=== PATIENT | female | born 1950 | race Two or more races ===

== ENCOUNTER 2018-10-03 12:58 | Inpatient (IN) | payer MEDICARE ==
[~2018-10-03] VITALS: Ht 160 cm; Wt 83.9 kg
[2018-10-03 13:00] VITALS: BP 155/61
--- NOTE | 2018-10-03 13:20 | NUR ---
ED Nurse Note: pt arrives from home via [facility] with c/o weakness and not feeling well with mild nausea. pt relates 3 weeks ago had a hernia repair done. healing open area noted to pt rt side of abd. daughter providing translation. pt states she has started feeling cp and nausea over past few days pt desires to amb with family assistance to brp before ecg and lab draw done. lungs cta dim bases, pt denies diziiness at this time. pt aware to obtain urine sample
[2018-10-03 13:56] LABS: APPEARANCE,URINE CLEAR; BILIRUBIN, URINE NEGATIVE (NEGATIVE); COLOR,URINE PALE YELLOW; GLUCOSE, URINE (UA) 2+ (NEGATIVE); KETONES,URINE NEGATIVE (NEGATIVE); LEUKOCYTE ESTERASE ,URINE 2+ (NEGATIVE); NITRITE,URINE NEGATIVE (NEGATIVE); PH,URINE 7 (4.5-8.0); PROTEIN,URINE NEGATIVE (NEGATIVE); UROBILINOGEN,URINE NORMAL MG/DL (0.0-1.0)
[2018-10-03 13:58] LABS: BASOPHILS % (AUTO) 0.8 % (0.0-2.0); EOSINOPHILS % (AUTO) 0.6 % (0.0-3.0); HEMATOCRIT 34.5 % (37.0-47.0); HEMOGLOBIN 11.4 G/DL (12.0-16.0); LYMPHOCYTES % (AUTO) 12.6 % (20.0-45.0); MEAN CORPUSCULAR VOLUME 85 FL (80-99); MONOCYTES % (AUTO) 3.8 % (1.0-10.0); NEUTROPHILS % (AUTO) 82.2 % (45.0-75.0); PLATELET COUNT 103 K/UL (150-450); RED BLOOD COUNT 4.05 M/UL (4.20-5.40); RED CELL DISTRIBUTION WIDTH 14.6 % (11.6-14.8); WHITE BLOOD COUNT 5.1 K/UL (4.8-10.8)
[2018-10-03 14:08] LABS: ANION GAP 8 mmol/L (5-15); BLOOD UREA NITROGEN 11 mg/dL (7-18); CALCIUM 9.9 MG/DL (8.5-10.1); CARBON DIOXIDE 31 MMOL/L (21-32); CHLORIDE 103 MMOL/L (98-107); CREATININE 0.6 MG/DL (0.55-1.30); POTASSIUM 3.7 MMOL/L (3.5-5.1); SODIUM 141 MMOL/L (136-145)
--- NOTE | 2018-10-03 14:11 | Diagnostic Imaging Report ---
Indication: Shortness of breath Technique: One view of the chest Comparison: none Findings: The heart is mildly enlarged. There is equivocal mild blunting of the left costophrenic sulcus, could indicate a small effusion. The lungs and right pleural space are clear.. Impression: Mild cardiomegaly Possible small left pleural effusion
[2018-10-03 14:30] VITALS: BP 116/59
[2018-10-03 14:33] LABS: ALANINE AMINOTRANSFERASE 41 U/L (12-78); ALBUMIN 3.5 G/DL (3.4-5.0); ALKALINE PHOSPHATASE 80 U/L (46-116); ASPARTATE AMINO TRANSFERASE 34 U/L (15-37); BILIRUBIN,TOTAL 0.7 MG/DL (0.2-1.0); CKMB 0.9 NG/ML (0.0-3.6); CREATINE KINASE 64 U/L (26-308); PHOSPHORUS 3.9 MG/DL (2.5-4.9)
--- NOTE | 2018-10-03 14:46 | Emergency Room Report ---
History of Present Illness General Chief Complaint: Generalized Weakness Source: Patient, Family Member, EMS Present Illness HPI This patient is accompanied by her granddaughter. The patient was drinking coffee and suddenly felt lightheaded and weak. She continued to feel very shaky , lightheaded and fatigued. She also complains of pain in her left arm. She denies chest pain or shortness of breath. She denies headache or neck pain. She denies abdominal pain. She denies nausea or vomiting. She denies fever chills. She has no other complaints. Allergies: Coded Allergies: PENICILLINS (Verified Allergy, Severe, anaphalaxtic, 10/03/18) Patient History Past Medical History: see triage record, DM, HTN, other - HLP, cirrhosis Social History: Denies: smoking, alcohol use, drug use Reviewed Nursing Documentation: PMH: Agreed; PSxH: Agreed Nursing Documentation-PMH Hx Hypertension: Yes Hx Diabetes: Yes Review of Systems All Other Systems: negative except mentioned in HPI Physical Exam Vital Signs Date Time Temp Pulse Resp B/P (MAP) Pulse Ox O2 Delivery O2 Flow Rate FiO2 10/03/18 12:51 99.0 78 16 192/90 (124) 99 Sp02 EP Interpretation: reviewed, normal General Appearance: no apparent distress, alert, GCS 15, non-toxic Head: normocephalic, atraumatic Eyes: bilateral eye normal inspection, bilateral eye PERRL ENT: hearing grossly normal, normal pharynx, no angioedema, normal voice Neck: full range of motion, supple/symm/no masses Respiratory: chest non-tender, lungs clear, normal breath sounds, no respiratory distress, no retraction, no accessory muscle use, speaking full sentences Cardiovascular #1: regular rate, rhythm, no edema Gastrointestinal: normal bowel sounds, non tender, soft, non-distended, no guarding, no rebound Rectal: deferred Musculoskeletal: back normal, gait/station normal, normal range of motion, non- tender, swelling - +Swelling of L. hand through upper arm. Neurologic: alert, oriented x3, responsive, motor strength/tone normal, sensory intact, speech normal Psychiatric: judgement/insight normal, memory normal, mood/affect normal, no suicidal/homicidal ideation Skin: normal color, no rash, warm/dry, well hydrated Medical Decision Making Diagnostic Impression: Primary Impression: CHF (congestive heart failure) Additional Impressions: Advanced cirrhosis of liver UTI (urinary tract infection) Diabetes mellitus HTN (hypertension) Generalized weakness Pancytopenia ER Course This patient is found to have CHF, urinary tract infection and given her history of cirrhosis, she is admitted for further evaluation and treatment by cardiology, gastroenterology and internal medicine. The patient did have left upper extremity swelling, venous ultrasound shows no evidence of DVT. This is likely related to the cirrhosis and CHF possibly versus lymphedema. The patient remained stable in the emergency department and was admitted for further evaluation and treatment. Laboratory Tests Test 10/03/18 13:30 White Blood Count 5.1 K/UL (4.8-10.8) Red Blood Count 4.05 M/UL (4.20-5.40) L Hemoglobin 11.4 G/DL (12.0-16.0) L Hematocrit 34.5 % (37.0-47.0) L Mean Corpuscular Volume 85 FL (80-99) Mean Corpuscular Hemoglobin 28.2 PG (27.0-31.0) Mean Corpuscular Hemoglobin Concent 33.0 G/DL (32.0-36.0) Red Cell Distribution Width 14.6 % (11.6-14.8) Platelet Count 103 K/UL (150-450) L Mean Platelet Volume 5.8 FL (6.5-10.1) L Neutrophils (%) (Auto) 82.2 % (45.0-75.0) H Lymphocytes (%) (Auto) 12.6 % (20.0-45.0) L Monocytes (%) (Auto) 3.8 % (1.0-10.0) Eosinophils (%) (Auto) 0.6 % (0.0-3.0) Basophils (%) (Auto) 0.8 % (0.0-2.0) Urine Color Pale yellow Urine Appearance Clear Urine pH 7 (4.5-8.0) Urine Specific [place] 1.010 (1.005-1.035) Urine Protein Negative (NEGATIVE) Urine Glucose (UA) 2+ (NEGATIVE) H Urine Ketones Negative (NEGATIVE) Urine Blood 3+ (NEGATIVE) H Urine Nitrite Negative (NEGATIVE) Urine Bilirubin Negative (NEGATIVE) Urine Urobilinogen Normal MG/DL (0.0-1.0) Urine Leukocyte Esterase 2+ (NEGATIVE) H Urine RBC 5-10 /HPF (0 - 2) H Urine WBC 2-4 /HPF (0 - 2) Urine Squamous Epithelial Cells Few /LPF (NONE/OCC) Urine Bacteria Occasional /HPF (NONE) Sodium Level 141 MMOL/L (136-145) Potassium Level 3.7 MMOL/L (3.5-5.1) Chloride Level 103 MMOL/L (98-107) Carbon Dioxide Level 31 MMOL/L (21-32) Anion Gap 8 mmol/L (5-15) Blood Urea Nitrogen 11 mg/dL (7-18) Creatinine 0.6 MG/DL (0.55-1.30) Estimate Glomerular Filtration Rate > 60 mL/min (>60) Glucose Level 221 MG/DL (74-106) H Lactic Acid Level 1.50 mmol/L (0.4-2.0) Calcium Level 9.9 MG/DL (8.5-10.1) Phosphorus Level 3.9 MG/DL (2.5-4.9) Magnesium Level 1.9 MG/DL (1.8-2.4) Total Bilirubin 0.7 MG/DL (0.2-1.0) Aspartate Amino Transferase (AST) 34 U/L (15-37) Alanine Aminotransferase (ALT) 41 U/L (12-78) Alkaline Phosphatase 80 U/L (46-116) Total Creatine Kinase 64 U/L (26-308) Creatine Kinase MB 0.9 NG/ML (0.0-3.6) Creatine Kinase MB Relative Index 1.4 Troponin I 0.000 ng/mL (0.000-0.056) Total Protein 7.1 G/DL (6.4-8.2) Albumin 3.5 G/DL (3.4-5.0) Globulin 3.6 g/dL Albumin/Globulin Ratio 1.0 (1.0-2.7) EKG Diagnostic Results Rate: normal Rhythm: NSR ST Segments: no acute changes Rhythm Strip Diag. Results EP Interpretation: yes Rate: 90 Rhythm: NSR, no PVC's, no ectopy Chest X-Ray Diagnostic Results Chest X-Ray Diagnostic Results : Chest X-Ray Ordered: Yes # of Views/Limited/Complete: 1 View Indication: Other EP Interpretation: Yes Interpretation: other - Cardiomegaly Impression: Other - See above Electronically Signed by: Michellethor Goldstein DO CT/MRI/US Diagnostic Results CT/MRI/US Diagnostic Results : Imaging Test Ordered: Venous US: LUE Impression No DVT. See official report in the EMR Last Vital Signs Date Time Temp Pulse Resp B/P (MAP) Pulse Ox O2 Delivery O2 Flow Rate FiO2 10/03/18 12:51 99.0 78 16 192/90 (124) 99 Disposition: ADMITTED INPATIENT Condition: Serious Michelle Goldstein DO Oct 03, 2018 14:46
--- NOTE | 2018-10-03 15:20 | NUR ---
ED Nurse Note: pt to be admission for new onset chf. ivf bolus stopped pt received 1100ml of ns prior to dx. dr herrera aware. pt remains without dyspnea or changes in vs/mentation
[2018-10-03 16:08] VITALS: BP 132/51
--- NOTE | 2018-10-03 16:19 | NUR ---
ED Nurse Note: pt relates not having chest pressure or nausea now but when she moves her left arm she still has pain there, granddaughter and pt aware of plan for admit. med recon done. pt doesnt meet criteria for swabs obtainment as she has not had inpt stay <30 days.
[2018-10-03] MEDS ORDERED: GABAPENTIN600 MG ORAL (16:26)
[2018-10-03] MEDS ORDERED: NOVOLOG100 UNITS1 (16:26)
[2018-10-03] MEDS ORDERED: LANTUS SOL100 UNIT/1 SUBQ (16:26)
[2018-10-03] MEDS ORDERED: [UNRECOGNIZED DRUG - OTHER] (16:26)
[2018-10-03] MEDS ORDERED: ATORVASTATIN CA40 MG ORAL (16:26)
[2018-10-03] MEDS ORDERED: LISINOPRIL-HCT1 EAC2 ORAL (16:26)
--- NOTE | 2018-10-03 16:27 | Diagnostic Imaging Report ---
Indication: Left arm pain Technique: Grayscale and duplex images of the left upper extremity veins Comparison: none Findings: Grayscale and images demonstrate no evidence of intraluminal thrombus. Normal phasic Doppler waveforms, normal compressibility Impression: Negative for left upper extremity venous thrombosis
--- NOTE | 2018-10-03 16:34 | NUR ---
ED Nurse Note: attempted report krystal rn to call back from tele unit
--- NOTE | 2018-10-03 16:45 | NUR ---
NURSE NOTES: Received report from FUNMILAYO Kumar in Ed. 165: Notified Dr. Mayer of new admission and of open hernia site from recent repair. Asked for admission orders.
--- NOTE | 2018-10-03 16:51 | NUR ---
ED Nurse Note: report to krystal christopher, awaits pt on tele unit. pt prepared for transfer acls protocol
--- NOTE | 2018-10-03 17:10 | NUR ---
NURSE NOTES: Pt transferred to [facility]. Pt ambulatory, A/Ox4, Khmer speaking only, Granddaughter, Tanja at bedside and translating. Vitals obtained and assessment done, see flowsheet, attached tele monitor to pt. Bed in lowest position, call light within reach, oriented pt and family to room, hourly rounding, bed controls, call light and plan of care.
--- NOTE | 2018-10-03 17:15 | NUR ---
NURSE NOTES: Notified Dr. Mayer regarding pt's open surgical site, midline abdomen from hernia repair 3 weeks ago, prior to admission. No new orders given
[2018-10-03 17:20] VITALS: BP 130/51
[2018-10-03] MEDS ORDERED: Miralax 17gm pkt ORAL PRN (17:30)
[2018-10-03] MEDS ORDERED: Morphine Sulfate 2mg/ml Inj(IV/IM USE ONLY) IVP PRN (17:30)
[2018-10-03] MEDS ORDERED: Albuterol/Ipratropium 3ml neb HHN PRN (17:30)
[2018-10-03] MEDS ORDERED: Nitroglycerin Subl 0.4mg tab SL PRN (17:30)
--- NOTE | 2018-10-03 18:40 | NUR ---
NURSE NOTES: Clarified NS order with DR. Mayer. Pt has CHF and received 1100ml NS in ED prior to CHF Dx. Left arm, IV site, swollen. Dr. Maeyr ordered DC IV fluid. New IV started right AC 22g SL
--- NOTE | 2018-10-03 19:28 | NUR ---
HAND-OFF: Report given to FUNMILAYO Dumas. Family at bedside. Pt stable.
--- NOTE | 2018-10-03 19:30 | NUR ---
NURSE NOTES: received pt from day shift nurse, pt AAOX4, family at bedside. no acute distress noted. no c/o pain. bed locked and lowest position, bedside rail up x2. call light within reach, will continue to monitor for any change in condition.
[2018-10-03] MEDS: Heparin 5000 units/ml inj SUBQ SCH (21:00)
[2018-10-03] MEDS: NovoLOG Insulin Flexpen SUBQ SCH (21:20)
--- NOTE | 2018-10-04 | NUR ---
NURSE NOTES: pt in bed, daughter at bedside. no acute distress noted. no change in condition. will continue to monitor for change in condition.
--- NOTE | 2018-10-04 04:00 | NUR ---
NURSE NOTES: pt sleeping, no change in condition. will continue to monitor for change in condition.
[2018-10-04] MEDS: NovoLOG Insulin Flexpen SUBQ SCH ×4 (06:17→21:17)
--- NOTE | 2018-10-04 06:39 | NUR ---
NURSE NOTES: pt remains stable, no acute distress, no change in condition. IV patent. all needs met during my shift. bed locked and lowest position, bedside rail up x2, call light within reach, will endorse plan of care to incoming nurse.
[2018-10-04 07:11] LABS: HEMATOCRIT 30.2 % (37.0-47.0); HEMOGLOBIN 10.1 G/DL (12.0-16.0); MEAN CORPUSCULAR VOLUME 85 FL (80-99); PLATELET COUNT 97 K/UL (150-450); RED BLOOD COUNT 3.57 M/UL (4.20-5.40); WHITE BLOOD COUNT 4.3 K/UL (4.8-10.8)
--- NOTE | 2018-10-04 07:34 | NUR ---
NURSE NOTES: Received report from Alesia MELLO. A0X4 and Pt in bed awake. No c/o pain and Denied SOB. No signs of distress noted. On 2LPM O2 via N/C. Pt refused SCDs. Bed in lowest position and locked. Noted an open surgical wound on abdomen with some slough and yellow colored small amount of drainage on gauze. Will ask the doctor for surgical consult. IV site L wrist 22G SL intact and patent. 2 X side rails up. Will continue to plan of care.
--- NOTE | 2018-10-04 07:34 | NUR ---
HAND-OFF: Report given to FUNMILAYO Foley.
[2018-10-04 07:46] LABS: ALANINE AMINOTRANSFERASE 31 U/L (12-78); ALBUMIN 3.2 G/DL (3.4-5.0); ALBUMIN/GLOBULIN RATIO 1.2 (1.0-2.7); ALKALINE PHOSPHATASE 65 U/L (46-116); ANION GAP 6 mmol/L (5-15); ASPARTATE AMINO TRANSFERASE 29 U/L (15-37); BILIRUBIN,TOTAL 0.6 MG/DL (0.2-1.0); BLOOD UREA NITROGEN 8 mg/dL (7-18); CALCIUM 9.2 MG/DL (8.5-10.1); CARBON DIOXIDE 30 MMOL/L (21-32); CHLORIDE 106 MMOL/L (98-107); CHOLESTEROL 140 MG/DL (< 200); CREATININE 0.5 MG/DL (0.55-1.30); HDL CHOLESTEROL 43 MG/DL (40-60); POTASSIUM 3.6 MMOL/L (3.5-5.1); SODIUM 142 MMOL/L (136-145); TRIGLYCERIDES 78 MG/DL (30-150)
[2018-10-04 08:43] VITALS: BP 110/56
--- NOTE | 2018-10-04 08:57 | Consultation ---
History of Present Illness General Date patient seen: Oct 04, 2018 Time patient seen: 08:30 Chief Complaint: chest pain, SOB Referring physician: Dr Francois Present Illness HPI t1 years old female with past medical history of hypertension and diabetes, came to emergency room accompanied by her granddaughter. Patient apparently was drinking coffee and suddenly felt lightheaded and weak , she was she complained of pain in the left arm . she denied chest pain or shortness of breath she denied headache or neck pain . she denied abdominal pain, nausea ,vomiting . she denied fever or chills . patient had few weeks ago hernia repair in [facility] . upon evaluation blood pressure was significantly elevated 192/90 . laboratory work-up revealed no leukocytosis ,hemoglobin 11.4 ,hematocrit 24.5. Urinalysis revealed +2 leukocyte esterase ,borderline pyuria ,and occasional bacteria. Electrolytes and renal parameters were stable. Glucose 221. Lactic acid 1.5. Stable LFT. Troponin was negative. EKG revealed normal sinus rhythm, no acute ischemic changes . CXR demonstrated mild cardiomegaly ,possible small left pleural effusion ,no other abnormalities . venous duplex left upper extremity revealed no evidence of acute DVT. Patient admitted to telemetry floor to for further evaluation and management Allergies: Coded Allergies: PENICILLINS (Verified Allergy, Severe, anaphalaxtic, 10/03/18) Medication History Scheduled Aspirin (Aspirin EC), 81 MG ORAL DAILY, (Reported) Atorvastatin Calcium* (Atorvastatin Calcium*), 40 MG ORAL BEDTIME, (Reported) Gabapentin* (Gabapentin*), 600 MG ORAL THREE TIMES A DAY, (Reported) Insulin Aspart (Novolog Flexpen), SUBQ BEFORE MEALS AND HS, (Reported) Lisinopril (Lisinopril*), 20 MG ORAL DAILY, (Reported) Metformin Hcl* (Metformin Hcl*), 1,000 MG ORAL BID, (Reported) Sitagliptin (Januvia), 100 MG ORAL ACBREAKFAST, (Reported) Scheduled PRN Clonidine Hcl (Clonidine Hcl), 0.1 MG PO Q4HR PRN for Per rx protocol, (Reported ) Temazepam (Temazepam*), 15 MG ORAL BEDTIME PRN for Per rx protocol, (Reported) Miscellaneous Medications [lamblit], (Reported) Discontinued Medications Insulin Aspart (Novolog Flexpen), (Reported) Discontinued Reason: Medication dose changed Insulin Aspart (Novolog), 100 UNIT SQ AC+HS, (Reported) Discontinued Reason: Medication dose changed Insulin Glargine (Lantus), 0 SUBQ BEDTIME, (Reported) Discontinued Reason: MD discontinued med Lisinopril/Hydrochlorothiazide 20-25 Mg Tab (Lisinopril-Hctz 20-25 Mg Tab), 1 TAB ORAL DAILY, (Reported) Discontinued Reason: MD discontinued med Temazepam (Temazepam*), 15 MG ORAL BEDTIME, (Reported) Discontinued Reason: Medication dose changed Patient History Healthcare decision maker Karen Casey Resuscitation status Full Code Advanced Directive on File No Review of Systems Eye: Reports: no symptoms ENT: Reports: no symptoms Respiratory: Reports: other - SOB Cardiovascular: Reports: chest pain Gastrointestinal: Reports: no symptoms Genitourinary: Reports: no symptoms Musculoskeletal: Reports: no symptoms, other - s/p recent hernia repair Skin: Reports: other - open area at umbilicus Psychiatric: Reports: no symptoms Neurological: Reports: no symptoms Endocrine: Reports: other - DM ROS Narrative now c/o chest pain granddaughter at the bedside pulse ox stable on RA chest pain midsternal, radiates to left shoulder, some SOB Physical Exam General Appearance: alert - Stateless speaking female in NAD Lines, tubes and drains: peripheral HEENT: normocephalic, atraumatic, anicteric, mucous membranes moist Neck: non-tender, normal alignment, supple Respiratory/Chest: lungs clear, no respiratory distress, no accessory muscle use Cardiovascular/Chest: normal rate, no JVD Abdomen: normal bowel sounds, non tender, soft - obese Extremities: normal range of motion, non-tender, no calf tenderness, normal capillary refill Skin Exam: warm/dry Neurologic: no motor/sensory deficits, alert, responsive Musculoskeletal: normal muscle bulk Last 24 Hour Vital Signs Date Time Temp Pulse Resp B/P (MAP) Pulse Ox O2 Delivery O2 Flow Rate FiO2 10/04/18 08:43 97.3 85 18 110/56 (74) 98 10/04/18 04:00 81 10/04/18 00:00 82 10/03/18 21:00 Room Air 10/03/18 20:00 91 10/03/18 17:20 98.6 88 16 130/51 (77) 98 10/03/18 16:53 86 20 132/51 100 Room Air 10/03/18 16:38 Room Air 10/03/18 16:08 86 20 132/51 100 Room Air 10/03/18 14:30 92 20 116/59 100 Room Air 10/03/18 13:00 86 20 155/61 100 Room Air 10/03/18 13:00 78 16 Room Air 10/03/18 12:51 99.0 78 16 192/90 (124) 99 Intake and Output 10/03/18 10/04/18 19:00 07:00 Intake Total 1100 ml Balance 1100 ml Intake Oral 0 ml IV Total 1100 ml # Voids 1 Laboratory Tests Test 10/03/18 13:30 10/04/18 06:15 White Blood Count 5.1 K/UL (4.8-10.8) 4.3 K/UL (4.8-10.8) L Red Blood Count 4.05 M/UL (4.20-5.40) L 3.57 M/UL (4.20-5.40) L Hemoglobin 11.4 G/DL (12.0-16.0) L 10.1 G/DL (12.0-16.0) L Hematocrit 34.5 % (37.0-47.0) L 30.2 % (37.0-47.0) L Mean Corpuscular Volume 85 FL (80-99) 85 FL (80-99) Mean Corpuscular Hemoglobin 28.2 PG (27.0-31.0) 28.4 PG (27.0-31.0) Mean Corpuscular Hemoglobin Concent 33.0 G/DL (32.0-36.0) 33.6 G/DL (32.0-36.0) Red Cell Distribution Width 14.6 % (11.6-14.8) 15.0 % (11.6-14.8) H Platelet Count 103 K/UL (150-450) L 97 K/UL (150-450) L Mean Platelet Volume 5.8 FL (6.5-10.1) L 5.8 FL (6.5-10.1) L Neutrophils (%) (Auto) 82.2 % (45.0-75.0) H % (45.0-75.0) Lymphocytes (%) (Auto) 12.6 % (20.0-45.0) L % (20.0-45.0) Monocytes (%) (Auto) 3.8 % (1.0-10.0) % (1.0-10.0) Eosinophils (%) (Auto) 0.6 % (0.0-3.0) % (0.0-3.0) Basophils (%) (Auto) 0.8 % (0.0-2.0) % (0.0-2.0) Urine Color Pale yellow Urine Appearance Clear Urine pH 7 (4.5-8.0) Urine Specific [place] 1.010 (1.005-1.035) Urine Protein Negative (NEGATIVE) Urine Glucose (UA) 2+ (NEGATIVE) H Urine Ketones Negative (NEGATIVE) Urine Blood 3+ (NEGATIVE) H Urine Nitrite Negative (NEGATIVE) Urine Bilirubin Negative (NEGATIVE) Urine Urobilinogen Normal MG/DL (0.0-1.0) Urine Leukocyte Esterase 2+ (NEGATIVE) H Urine RBC 5-10 /HPF (0 - 2) H Urine WBC 2-4 /HPF (0 - 2) Urine Squamous Epithelial Cells Few /LPF (NONE/OCC) Urine Bacteria Occasional /HPF (NONE) Sodium Level 141 MMOL/L (136-145) 142 MMOL/L (136-145) Potassium Level 3.7 MMOL/L (3.5-5.1) 3.6 MMOL/L (3.5-5.1) Chloride Level 103 MMOL/L (98-107) 106 MMOL/L (98-107) Carbon Dioxide Level 31 MMOL/L (21-32) 30 MMOL/L (21-32) Anion Gap 8 mmol/L (5-15) 6 mmol/L (5-15) Blood Urea Nitrogen 11 mg/dL (7-18) 8 mg/dL (7-18) Creatinine 0.6 MG/DL (0.55-1.30) 0.5 MG/DL (0.55-1.30) L Estimat Glomerular Filtration Rate > 60 mL/min (>60) > 60 mL/min (>60) Glucose Level 221 MG/DL (74-106) H 116 MG/DL (74-106) #H Lactic Acid Level 1.50 mmol/L (0.4-2.0) Calcium Level 9.9 MG/DL (8.5-10.1) 9.2 MG/DL (8.5-10.1) Phosphorus Level 3.9 MG/DL (2.5-4.9) Magnesium Level 1.9 MG/DL (1.8-2.4) Total Bilirubin 0.7 MG/DL (0.2-1.0) 0.6 MG/DL (0.2-1.0) Aspartate Amino Transf (AST/SGOT) 34 U/L (15-37) 29 U/L (15-37) Alanine Aminotransferase (ALT/SGPT) 41 U/L (12-78) 31 U/L (12-78) Alkaline Phosphatase 80 U/L (46-116) 65 U/L (46-116) Total Creatine Kinase 64 U/L (26-308) Creatine Kinase MB 0.9 NG/ML (0.0-3.6) Creatine Kinase MB Relative Index 1.4 Troponin I 0.000 ng/mL (0.000-0.056) Total Protein 7.1 G/DL (6.4-8.2) 5.9 G/DL (6.4-8.2) L Albumin 3.5 G/DL (3.4-5.0) 3.2 G/DL (3.4-5.0) L Globulin 3.6 g/dL 2.7 g/dL Albumin/Globulin Ratio 1.0 (1.0-2.7) 1.2 (1.0-2.7) Neutrophils % (Manual) Pending Lymphocytes % (Manual) Pending Platelet Estimate Pending Platelet Morphology Pending Hemoglobin A1c 7.2 % (4.3-6.0) H Triglycerides Level 78 MG/DL (30-150) Cholesterol Level 140 MG/DL (< 200) LDL Cholesterol 88 mg/dL (<100) HDL Cholesterol 43 MG/DL (40-60) Cholesterol/HDL Ratio 3.3 (3.3-4.4) Thyroid Stimulating Hormone (TSH) 0.382 uiU/mL (0.358-3.740) Height (Feet): 5 Height (Inches): 3.00 Weight (Pounds): 185 Medications Current Medications Medications (Trade) Dose Ordered Sig/Shila Route PRN Reason Start Time Stop Time Status Last Admin Dose Admin Acetaminophen (Tylenol) 650 mg Q4H PRN ORAL fever 10/03/18 17:30 11/02/18 17:29 Albuterol/ Ipratropium (Albuterol/ Ipratropium) 3 ml Q4H PRN HHN Shortness of Breath 10/03/18 17:30 10/08/18 17:29 Clonidine HCl (Catapres Tab) 0.1 mg Q4H PRN ORAL sbp more than 160 10/03/18 17:30 11/02/18 17:29 Dextrose (Dextrose 50%) 25 ml Q30M PRN IV Hypoglycemia 10/03/18 17:30 11/02/18 17:29 Dextrose (Dextrose 50%) 50 ml Q30M PRN IV Hypoglycemia 10/03/18 17:30 11/02/18 17:29 Gabapentin (Neurontin) 600 mg THREE TIMES A DAY ORAL 10/03/18 18:00 11/02/18 17:59 10/03/18 18:30 Heparin Sodium (Porcine) (Heparin 5000 units/ml) 5,000 units EVERY 12 HOURS SUBQ 10/03/18 21:00 11/02/18 20:59 Insulin Aspart (NovoLOG) BEFORE MEALS AND HS SUBQ 10/03/18 21:00 11/02/18 20:59 10/04/18 06:17 Morphine Sulfate (Morphine Sulfate) 2 mg Q4H PRN IVP severe pain 7-10 10/03/18 17:30 10/10/18 17:29 Nitroglycerin (Ntg) 0.4 mg Q5M X 3 DOSES PRN SL Prn Chest Pain 10/03/18 17:30 11/02/18 17:29 Ondansetron HCl (Zofran) 4 mg Q6H PRN IVP Nausea & Vomiting 10/03/18 17:30 11/02/18 17:29 Polyethylene Glycol (Miralax) 17 gm HSPRN PRN ORAL Constipation 10/03/18 17:30 11/02/18 17:29 Sodium Chloride 1,000 ml @ 100 mls/hr Q10H IVLG 10/03/18 17:26 11/02/18 17:25 10/04/18 04:37 Temazepam (Restoril) 15 mg HSPRN PRN ORAL Insomnia 10/03/18 17:30 10/10/18 17:29 10/04/18 04:39 Assessment/Plan Assessment/Plan: ASSESSMENT Hypertensive urgency POA -resolved Lightheadedness and weakness , possibly due to hypertensive urgency Chest pain with SOB Thrombocytopenia Diabetes mellitus PLAN OF CARE tele serial troponin check Venous Duplex BLE and D dimer , given c/o SOB, chest pain and recent surgery repeat troponin this am, get ECHO cardio eval BP stabilized, restart Lisinopril with holding parameters lipid panel stable , restart statin cardio eval pending TSH WNL BS close monitoring endo eval pending HgA1c -7.2 nearly at goal DVT prophylaxis with heparin, but closely monitor PLT count, if further decline below 90, will stop heparin surgery eval re umbilical wound supportive care PT eval and Rx case discussed and evaluated by supervising physician Diagnosis [place] I: Sangeetha Lake NP Oct 04, 2018 08:57
[2018-10-04] MEDS: Heparin 5000 units/ml inj SUBQ SCH ×2 (09:00→21:13)
[2018-10-04] MEDS ORDERED: Heparin 5000 units/ml inj SUBQ ONE (11:30)
[2018-10-04 12:00] VITALS: BP 122/66
--- NOTE | 2018-10-04 13:11 | Consultation ---
History of Present Illness General Date patient seen: Oct 04, 2018 Reason for Hospitalization: Generalized Weakness Present Illness HPI This is a very pleasant 68-year-old female who presented to [facility] complaining of worsening shortness of breath and discomfort. Patient is accompanied by her granddaughter who helps with history. States that patient had a ventral hernia and wanted it repaired but was told by her physicians [facility] and [place] that given her medical comorbidities repair should be delayed until she is improved. Patient decided instead that she wanted to go to [place] and have surgery and approximately 20 days ago had a ventral hernia repair in [place]. Patient is unaware of surgical procedure that was done and if mesh was or was not used. On admission patient was identified to have a dehiscence of the midline wound with sutures present. Surgery called to evaluate. Patient seen, patient evaluated, chart reviewed. Allergies: Coded Allergies: PENICILLINS (Verified Allergy, Severe, anaphalaxtic, 10/03/18) Medication History Scheduled Atorvastatin Calcium* (Atorvastatin Calcium*), 40 MG ORAL BEDTIME, (Reported) Gabapentin* (Gabapentin*), 600 MG ORAL THREE TIMES A DAY, (Reported) Insulin Glargine (Lantus), 0 SUBQ BEDTIME, (Reported) Lisinopril/Hydrochlorothiazide 20-25 Mg Tab (Lisinopril-Hctz 20-25 Mg Tab), 1 TAB ORAL DAILY, (Reported) Miscellaneous Medications Insulin Aspart (Novolog Flexpen), (Reported) [lamblit], (Reported) Patient History History Provided By: Patient, Family Member, Medical Record, PMD Healthcare decision maker Karen Peña Resuscitation status Full Code Advanced Directive on File No Past Medical/Surgical History Past Medical/Surgical History: (1) Episode of generalized weakness (2) CHF (congestive heart failure) (3) Chest tightness Review of Systems Review of Symptoms General ROS: no weight loss or fever Psychological ROS: no depression or mood changes, no memory loss Ophthalmic ROS: no visual changes or eye irritation ENT ROS: no nasal congestion, hearing loss, dizziness Allergy and Immunology ROS: no allergic symptoms or urticaria Hematological and Lymphatic ROS: no swollen glands, unusual bleeding or bruising Endocrine ROS: no polyuria, polydipsia, weight changes, temperature intolerance Respiratory ROS: cough, shortness of breath, no wheezing Cardiovascular ROS: no chest pain or dyspnea on exertion Gastrointestinal ROS: denies abdominal pain, no bright red blood in stool. Musculoskeletal ROS: no myalgias or arthralgias Neurological ROS: no TIA or stroke symptoms Dermatological ROS: no new or changing skin lesions, rashes or pruritis Physical Exam Physical Exam General appearance: alert, cooperative, no distress, appears stated age Head: Normocephalic, without obvious abnormality, atraumatic Eyes: conjunctivae/corneas clear. PERRL, EOM's intact. Fundi benign Throat: Lips, mucosa, and tongue normal. Teeth and gums normal Neck: supple, symmetrical, trachea midline, no adenopathy, thyroid: not enlarged, symmetric, no tenderness/mass/nodules, no carotid bruit and no JVD Lungs: clear to auscultation bilaterally Heart: regular rate and rhythm, S1, S2 normal, no murmur, click, rub or gallop Abdomen: soft, non-tender. Bowel sounds normal. No masses, no organomegaly. midline wound dehiscence Extremities: extremities normal, atraumatic, no cyanosis or edema Pulses: 2+ and symmetric Skin: Skin color, texture, turgor normal. No rashes or lesions Neurologic: Grossly normal Last 24 Hour Vital Signs Date Time Temp Pulse Resp B/P (MAP) Pulse Ox O2 Delivery O2 Flow Rate FiO2 10/04/18 12:00 97.5 87 20 122/66 (84) 97 10/04/18 09:00 Room Air 10/04/18 08:43 97.3 85 18 110/56 (74) 98 10/04/18 08:00 87 10/04/18 04:00 81 10/04/18 00:00 82 10/03/18 21:00 Room Air 10/03/18 20:00 91 10/03/18 17:20 98.6 88 16 130/51 (77) 98 10/03/18 16:53 86 20 132/51 100 Room Air 10/03/18 16:38 Room Air 10/03/18 16:08 86 20 132/51 100 Room Air 10/03/18 14:30 92 20 116/59 100 Room Air Intake and Output 10/03/18 10/04/18 19:00 07:00 Intake Total 1100 ml 0 ml Balance 1100 ml 0 ml Intake Oral 0 ml IV Total 1100 ml 0 ml # Voids 1 Laboratory Tests Test 10/03/18 13:30 10/04/18 06:15 10/04/18 10:45 White Blood Count 5.1 K/UL (4.8-10.8) 4.3 K/UL (4.8-10.8) L Red Blood Count 4.05 M/UL (4.20-5.40) L 3.57 M/UL (4.20-5.40) L Hemoglobin 11.4 G/DL (12.0-16.0) L 10.1 G/DL (12.0-16.0) L Hematocrit 34.5 % (37.0-47.0) L 30.2 % (37.0-47.0) L Mean Corpuscular Volume 85 FL (80-99) 85 FL (80-99) Mean Corpuscular Hemoglobin 28.2 PG (27.0-31.0) 28.4 PG (27.0-31.0) Mean Corpuscular Hemoglobin Concent 33.0 G/DL (32.0-36.0) 33.6 G/DL (32.0-36.0) Red Cell Distribution Width 14.6 % (11.6-14.8) 15.0 % (11.6-14.8) H Platelet Count 103 K/UL (150-450) L 97 K/UL (150-450) L Mean Platelet Volume 5.8 FL (6.5-10.1) L 5.8 FL (6.5-10.1) L Neutrophils (%) (Auto) 82.2 % (45.0-75.0) H % (45.0-75.0) Lymphocytes (%) (Auto) 12.6 % (20.0-45.0) L % (20.0-45.0) Monocytes (%) (Auto) 3.8 % (1.0-10.0) % (1.0-10.0) Eosinophils (%) (Auto) 0.6 % (0.0-3.0) % (0.0-3.0) Basophils (%) (Auto) 0.8 % (0.0-2.0) % (0.0-2.0) Urine Color Pale yellow Urine Appearance Clear Urine pH 7 (4.5-8.0) Urine Specific [place] 1.010 (1.005-1.035) Urine Protein Negative (NEGATIVE) Urine Glucose (UA) 2+ (NEGATIVE) H Urine Ketones Negative (NEGATIVE) Urine Blood 3+ (NEGATIVE) H Urine Nitrite Negative (NEGATIVE) Urine Bilirubin Negative (NEGATIVE) Urine Urobilinogen Normal MG/DL (0.0-1.0) Urine Leukocyte Esterase 2+ (NEGATIVE) H Urine RBC 5-10 /HPF (0 - 2) H Urine WBC 2-4 /HPF (0 - 2) Urine Squamous Epithelial Cells Few /LPF (NONE/OCC) Urine Bacteria Occasional /HPF (NONE) Sodium Level 141 MMOL/L (136-145) 142 MMOL/L (136-145) Potassium Level 3.7 MMOL/L (3.5-5.1) 3.6 MMOL/L (3.5-5.1) Chloride Level 103 MMOL/L (98-107) 106 MMOL/L (98-107) Carbon Dioxide Level 31 MMOL/L (21-32) 30 MMOL/L (21-32) Anion Gap 8 mmol/L (5-15) 6 mmol/L (5-15) Blood Urea Nitrogen 11 mg/dL (7-18) 8 mg/dL (7-18) Creatinine 0.6 MG/DL (0.55-1.30) 0.5 MG/DL (0.55-1.30) L Estimat Glomerular Filtration Rate > 60 mL/min (>60) > 60 mL/min (>60) Glucose Level 221 MG/DL (74-106) H 116 MG/DL (74-106) #H Lactic Acid Level 1.50 mmol/L (0.4-2.0) Calcium Level 9.9 MG/DL (8.5-10.1) 9.2 MG/DL (8.5-10.1) Phosphorus Level 3.9 MG/DL (2.5-4.9) Magnesium Level 1.9 MG/DL (1.8-2.4) Total Bilirubin 0.7 MG/DL (0.2-1.0) 0.6 MG/DL (0.2-1.0) Aspartate Amino Transf (AST/SGOT) 34 U/L (15-37) 29 U/L (15-37) Alanine Aminotransferase (ALT/SGPT) 41 U/L (12-78) 31 U/L (12-78) Alkaline Phosphatase 80 U/L (46-116) 65 U/L (46-116) Total Creatine Kinase 64 U/L (26-308) Creatine Kinase MB 0.9 NG/ML (0.0-3.6) Creatine Kinase MB Relative Index 1.4 Troponin I 0.000 ng/mL (0.000-0.056) Total Protein 7.1 G/DL (6.4-8.2) 5.9 G/DL (6.4-8.2) L Albumin 3.5 G/DL (3.4-5.0) 3.2 G/DL (3.4-5.0) L Globulin 3.6 g/dL 2.7 g/dL Albumin/Globulin Ratio 1.0 (1.0-2.7) 1.2 (1.0-2.7) Differential Total Cells Counted 100 Neutrophils % (Manual) 67 % (45-75) Lymphocytes % (Manual) 22 % (20-45) Monocytes % (Manual) 9 % (1-10) Eosinophils % (Manual) 2 % (0-3) Basophils % (Manual) 0 % (0-2) Band Neutrophils 0 % (0-8) Platelet Estimate Decreased L Platelet Morphology Normal Anisocytosis 1+ Hemoglobin A1c 7.2 % (4.3-6.0) H Triglycerides Level 78 MG/DL (30-150) Cholesterol Level 140 MG/DL (< 200) LDL Cholesterol 88 mg/dL (<100) HDL Cholesterol 43 MG/DL (40-60) Cholesterol/HDL Ratio 3.3 (3.3-4.4) Thyroid Stimulating Hormone (TSH) 0.382 uiU/mL (0.358-3.740) D-Dimer 0.53 mg/L FEU (0.00-0.49) H Height (Feet): 5 Height (Inches): 3.00 Weight (Pounds): 185 Medications Current Medications Medications (Trade) Dose Ordered Sig/Shila Route PRN Reason Start Time Stop Time Status Last Admin Dose Admin Acetaminophen (Tylenol) 650 mg Q4H PRN ORAL fever 10/03/18 17:30 11/02/18 17:29 Albuterol/ Ipratropium (Albuterol/ Ipratropium) 3 ml Q4H PRN HHN Shortness of Breath 10/03/18 17:30 6/19/19 17:29 Aspirin (Ecotrin) 81 mg DAILY ORAL 10/05/18 09:00 11/04/18 08:59 Atorvastatin Calcium (Lipitor) 40 mg BEDTIME ORAL 10/04/18 21:00 11/03/18 20:59 Clonidine HCl (Catapres Tab) 0.1 mg Q4H PRN ORAL sbp more than 160 10/03/18 17:30 11/02/18 17:29 Dextrose (Dextrose 50%) 25 ml Q30M PRN IV Hypoglycemia 10/03/18 17:30 11/02/18 17:29 Dextrose (Dextrose 50%) 50 ml Q30M PRN IV Hypoglycemia 10/03/18 17:30 11/02/18 17:29 Gabapentin (Neurontin) 600 mg THREE TIMES A DAY ORAL 10/03/18 18:00 11/02/18 17:59 10/04/18 13:05 Heparin Sodium (Porcine) (Heparin 5000 units/ml) 5,000 units EVERY 12 HOURS SUBQ 10/04/18 21:00 11/02/18 20:59 Insulin Aspart (NovoLOG) BEFORE MEALS AND HS SUBQ 10/03/18 21:00 11/02/18 20:59 10/04/18 06:17 Lisinopril (Prinivil) 20 mg DAILY ORAL 10/05/18 09:00 11/04/18 08:59 Morphine Sulfate (Morphine Sulfate) 2 mg Q4H PRN IVP severe pain 7-10 10/03/18 17:30 10/10/18 17:29 Nitroglycerin (Ntg) 0.4 mg Q5M X 3 DOSES PRN SL Prn Chest Pain 10/03/18 17:30 11/02/18 17:29 Ondansetron HCl (Zofran) 4 mg Q6H PRN IVP Nausea & Vomiting 10/03/18 17:30 11/02/18 17:29 Polyethylene Glycol (Miralax) 17 gm HSPRN PRN ORAL Constipation 10/03/18 17:30 11/02/18 17:29 Temazepam (Restoril) 15 mg HSPRN PRN ORAL Insomnia 10/03/18 17:30 10/10/18 17:29 10/04/18 04:39 Assessment/Plan Problem List: (1) Surgical wound dehiscence Assessment & Plan: This is a 5-year-old female who was recently gone to [place] approximately 20 days ago for ventral hernia repair. He is unaware of the exact repair that was performed and if mesh was or was not used. Patient now presents with shortness of breath and discomfort. On admission noted to have midline wound dehiscence with sutures present. On evaluation patient has a 3 cm x 3 cm dehisced midline wound with unknown depth. Difficult to discern if there is underlying mesh or not. Ultimately 3 nonabsorbable sutures are identified within the subcutis tissue and unsure if these are related to mesh placement of a possible overlay or not. Minimal erythema nontender no drainage. Patient is a diabetic. Patient denies any complaints from the wound. Given recent surgical intervention in [place] there is significant concern of potential underlying wound pathology. Recommend CT abdomen and pelvis to evaluate for potential mesh placement seroma or bowel or other of normality within the repaired hernia. Okay for diet Venous duplex to evaluate for DVT We will continue to monitor Local wound care with plans for outpatient wound care upon discharge Thank you for allowing me to participate in patient's care ICD Codes: T81.31XA - Disruption of external operation (surgical) wound, not elsewhere classified, initial encounter SNOMED: 81857445 (2) Surgical wound, non healing ICD Codes: T81.89XA - Other complications of procedures, not elsewhere classified, initial encounter SNOMED: 734971179 (3) CHF (congestive heart failure) ICD Codes: I50.9 - Heart failure, unspecified SNOMED: 50021021 (4) Chest tightness ICD Codes: R07.89 - Other chest pain SNOMED: 88104245 (5) Episode of generalized weakness ICD Codes: R53.1 - Weakness SNOMED: 53355647 Marlon Miles Oct 04, 2018 13:11
--- NOTE | 2018-10-04 13:42 | Diagnostic Imaging Report ---
EXAM: US Duplex Bilateral Lower Extremity Veins CLINICAL HISTORY: DVT TECHNIQUE: Real-time duplex ultrasound scan of the bilateral lower extremity veins integrating B-mode two-dimensional vascular structure, Doppler spectral analysis, color flow Doppler imaging and compression. COMPARISON: No relevant prior studies available. FINDINGS: Right deep veins: Unremarkable. No DVT in the right common femoral, femoral, proximal deep femoral or popliteal veins. The veins demonstrate normal color flow, are normally compressible, with normal phasic flow and/or augmentation response. Right superficial veins: Unremarkable. No thrombus in the visualized right great saphenous vein. Left deep veins: Unremarkable. No DVT in the left common femoral, femoral, proximal deep femoral or popliteal veins. The veins demonstrate normal color flow, are normally compressible, with normal phasic flow and/or augmentation response. Left superficial veins: Unremarkable. No thrombus in the visualized left great saphenous vein. Soft tissues: No acute findings. No popliteal cyst. IMPRESSION: Normal bilateral lower extremity duplex venous ultrasound.
--- NOTE | 2018-10-04 13:54 | Consultation ---
Consult Note Assessment/Plan # [id number] Samuel Trinidad MD Oct 04, 2018 13:54
--- NOTE | 2018-10-04 14:00 | History and Physical Report ---
DATE OF ADMISSION: 10/03/2018 TIME SEEN: 9 a.m. CONSULTANTS: 1. Gabby Mayer M.D. 2. Denzel Castillo M.D. 3. Star Jarvis M.D. 4. Marlon Miles M.D. CHIEF COMPLAINT: Shortness of breath x2 months, CHF exacerbation. BRIEF HISTORY: This is a 68-year-old female, who lives at home, apparently had short of breath increasing for the last month, became unbearable. Yesterday, came to [place], diagnosed with CHF exacerbation, admitted to telemetry. Currently, calm in bed, slight pressure like chest pain. No loss of consciousness. No nausea, vomiting, or diarrhea. PAST MEDICAL HISTORY: CHF, diabetes, hypertension, questionable liver failure. PAST SURGICAL HISTORY: Previous lower abdominal hernia surgery. MEDICATIONS: Include heparin, insulin, gabapentin, albuterol, Tylenol, morphine, Zofran, temazepam, and clonidine. ALLERGIES: Penicillin. SOCIAL HISTORY: No smoking. No alcohol. No intravenous drug abuse. FAMILY HISTORY: Noncontributory. PHYSICAL EXAMINATION: GENERAL: Slightly anxious in bed, oriented x3, no acute distress. VITAL SIGNS: Temperature is 97 degrees, pulse 85, respirations 18, blood pressure 110/56. CARDIOVASCULAR: No murmur. LUNGS: Poor air exchange. Slight wheeze bilaterally. ABDOMEN: Bowel sounds positive. Nontender and nondistended. EXTREMITIES: No cyanosis, clubbing, or edema. NEUROLOGIC: The patient moves all extremities, slightly weak. LABORATORY AND DIAGNOSTIC DATA: Labs at this time show white count 4.3, hemoglobin and hematocrit 10/30, platelets 97. BMP shows creatinine 0.5, glucose 116, albumin 3.2. Urinalysis 2+ leukocyte esterase. ASSESSMENT: 1. CHF. 2. Anemia. 3. Diabetes. 4. Hypertension. 5. History of liver failure. 6. Urinary tract infection. PLAN: 1. O2 and pulmonary treatment. 2. Blood pressure and blood sugar control. 3. Dietary followup. 4. Resume home medications. 5. Antibiotics per Infectious Disease. 6. CBC and BMP in the morning. 7. PT and dietary evaluation. Donovan Francois D.O. DR: GIRMA JOB#: [id number] CC:
[2018-10-04 16:00] VITALS: BP 135/69
--- NOTE | 2018-10-04 19:15 | NUR ---
HAND-OFF: Report given to Alesia MELLO. Pt remains stable.
--- NOTE | 2018-10-04 19:30 | NUR ---
NURSE NOTES: received pt from FUNMILAYO Foley. pt AOx4, no acute distress noted.pt updated on plan of care. verbalized understanding. bed locked and lowest position, side rail upx2, call light and belonging within reach. will continue to monitor for any change in condition.
--- NOTE | 2018-10-04 19:40 | Cardiac Electrophysiology PN ---
Subjective Subjective [id number] Objective Last 24 Hour Vital Signs Date Time Temp Pulse Resp B/P (MAP) Pulse Ox O2 Delivery O2 Flow Rate FiO2 10/04/18 16:00 98.0 79 18 135/69 (91) 96 10/04/18 16:00 76 10/04/18 12:00 86 10/04/18 12:00 97.5 87 20 122/66 (84) 97 10/04/18 09:00 Room Air 10/04/18 08:43 97.3 85 18 110/56 (74) 98 10/04/18 08:00 87 10/04/18 04:00 81 10/04/18 00:00 82 10/03/18 21:00 Room Air 10/03/18 20:00 91 Intake and Output 10/03/18 10/04/18 19:00 07:00 Intake Total 1100 ml 0 ml Balance 1100 ml 0 ml Intake Oral 0 ml IV Total 1100 ml 0 ml # Voids 1 Laboratory Tests Test 10/04/18 06:15 10/04/18 10:45 10/04/18 13:23 White Blood Count 4.3 K/UL (4.8-10.8) L Red Blood Count 3.57 M/UL (4.20-5.40) L Hemoglobin 10.1 G/DL (12.0-16.0) L Hematocrit 30.2 % (37.0-47.0) L Mean Corpuscular Volume 85 FL (80-99) Mean Corpuscular Hemoglobin 28.4 PG (27.0-31.0) Mean Corpuscular Hemoglobin Concent 33.6 G/DL (32.0-36.0) Red Cell Distribution Width 15.0 % (11.6-14.8) H Platelet Count 97 K/UL (150-450) L Mean Platelet Volume 5.8 FL (6.5-10.1) L Neutrophils (%) (Auto) % (45.0-75.0) Lymphocytes (%) (Auto) % (20.0-45.0) Monocytes (%) (Auto) % (1.0-10.0) Eosinophils (%) (Auto) % (0.0-3.0) Basophils (%) (Auto) % (0.0-2.0) Differential Total Cells Counted 100 Neutrophils % (Manual) 67 % (45-75) Lymphocytes % (Manual) 22 % (20-45) Monocytes % (Manual) 9 % (1-10) Eosinophils % (Manual) 2 % (0-3) Basophils % (Manual) 0 % (0-2) Band Neutrophils 0 % (0-8) Platelet Estimate Decreased L Platelet Morphology Normal Anisocytosis 1+ Sodium Level 142 MMOL/L (136-145) Potassium Level 3.6 MMOL/L (3.5-5.1) Chloride Level 106 MMOL/L (98-107) Carbon Dioxide Level 30 MMOL/L (21-32) Anion Gap 6 mmol/L (5-15) Blood Urea Nitrogen 8 mg/dL (7-18) Creatinine 0.5 MG/DL (0.55-1.30) L Estimat Glomerular Filtration Rate > 60 mL/min (>60) Glucose Level 116 MG/DL (74-106) #H Hemoglobin A1c 7.2 % (4.3-6.0) H Calcium Level 9.2 MG/DL (8.5-10.1) Total Bilirubin 0.6 MG/DL (0.2-1.0) Aspartate Amino Transf (AST/SGOT) 29 U/L (15-37) Alanine Aminotransferase (ALT/SGPT) 31 U/L (12-78) Alkaline Phosphatase 65 U/L (46-116) Total Protein 5.9 G/DL (6.4-8.2) L Albumin 3.2 G/DL (3.4-5.0) L Globulin 2.7 g/dL Albumin/Globulin Ratio 1.2 (1.0-2.7) Triglycerides Level 78 MG/DL (30-150) Cholesterol Level 140 MG/DL (< 200) LDL Cholesterol 88 mg/dL (<100) HDL Cholesterol 43 MG/DL (40-60) Cholesterol/HDL Ratio 3.3 (3.3-4.4) Thyroid Stimulating Hormone (TSH) 0.382 uiU/mL (0.358-3.740) D-Dimer 0.53 mg/L FEU (0.00-0.49) H Troponin I 0.000 ng/mL (0.000-0.056) Denzel Castillo MD Oct 04, 2018 19:40
[2018-10-04 20:00] VITALS: BP 141/65
--- NOTE | 2018-10-04 20:39 | General Progress Note ---
Assessment/Plan Assessment/Plan: GI CONSULT Dictated Agree with surgical assessment. Thank you Carson Villar MD Subjective Allergies: Coded Allergies: PENICILLINS (Verified Allergy, Severe, anaphalaxtic, 10/03/18) Objective Last 24 Hour Vital Signs Date Time Temp Pulse Resp B/P (MAP) Pulse Ox O2 Delivery O2 Flow Rate FiO2 10/04/18 16:00 98.0 79 18 135/69 (91) 96 10/04/18 16:00 76 10/04/18 12:00 86 10/04/18 12:00 97.5 87 20 122/66 (84) 97 10/04/18 09:00 Room Air 10/04/18 08:43 97.3 85 18 110/56 (74) 98 10/04/18 08:00 87 10/04/18 04:00 81 10/04/18 00:00 82 10/03/18 21:00 Room Air Intake and Output 10/03/18 10/04/18 19:00 07:00 Intake Total 1100 ml 0 ml Balance 1100 ml 0 ml Intake Oral 0 ml IV Total 1100 ml 0 ml # Voids 1 Laboratory Tests 10/04/18 06:15: White Blood Count 4.3L, Red Blood Count 3.57L, Hemoglobin 10.1L, Hematocrit 30.2L, Mean Corpuscular Volume 85, Mean Corpuscular Hemoglobin 28.4, Mean Corpuscular Hemoglobin Concent 33.6, Red Cell Distribution Width 15.0H, Platelet Count 97L, Mean Platelet Volume 5.8L, Neutrophils (%) (Auto) , Lymphocytes (%) (Auto) , Monocytes (%) (Auto) , Eosinophils (%) (Auto) , Basophils (%) (Auto) , Differential Total Cells Counted 100, Neutrophils % ( Manual) 67, Lymphocytes % (Manual) 22, Monocytes % (Manual) 9, Eosinophils % ( Manual) 2, Basophils % (Manual) 0, Band Neutrophils 0, Platelet Estimate DecreasedL, Platelet Morphology Normal, Anisocytosis 1+, Sodium Level 142, Potassium Level 3.6, Chloride Level 106, Carbon Dioxide Level 30, Anion Gap 6, Blood Urea Nitrogen 8, Creatinine 0.5L, Estimat Glomerular Filtration Rate > 60 , Glucose Level 116#H, Hemoglobin A1c 7.2H, Calcium Level 9.2, Total Bilirubin 0.6, Aspartate Amino Transf (AST/SGOT) 29, Alanine Aminotransferase (ALT/SGPT) 31, Alkaline Phosphatase 65, Total Protein 5.9L, Albumin 3.2L, Globulin 2.7, Albumin/Globulin Ratio 1.2, Triglycerides Level 78, Cholesterol Level 140, LDL Cholesterol 88, HDL Cholesterol 43, Cholesterol/HDL Ratio 3.3, Thyroid Stimulating Hormone (TSH) 0.382 10/04/18 10:45: D-Dimer 0.53H 10/04/18 13:23: Troponin I 0.000 Height (Feet): 5 Height (Inches): 3.00 Weight (Pounds): 185 Leta Villar MD Oct 04, 2018 20:39
--- NOTE | 2018-10-04 20:45 | Consultation ---
DATE OF CONSULTATION: 10/04/2018 INFECTIOUS DISEASE CONSULTATION CONSULTING PHYSICIAN: Samuel Trinidad M.D. REQUESTING PHYSICIAN: Donovan Francois D.O. REASON FOR CONSULTATION: Evaluation of the patient for possible pneumonia and antibiotic management. HISTORY OF PRESENT ILLNESS: The patient is a 68-year-old female with multiple medical problems as listed below, who came to the hospital with chief complaint of shortness of breath and weakness. The patient has scant cough. Infectious Disease consultation has been requested for further evaluation of the patient and antibiotic management. PAST MEDICAL HISTORY: Significant for: 1. CHF. 2. Hypertension. 3. History of bilateral lower extremity edema. 4. Diabetes. 5. History of liver failure. 6. History of umbilical hernia repair in [facility] 2 weeks ago. ALLERGIES: Penicillin. MEDICATIONS: Off of antibiotics currently. FAMILY HISTORY: Not contributing. REVIEW OF SYSTEMS: A 10-point review was done, except what has been mentioned above is negative. The patient has scant cough, dry, no runny nose or sore throat. No fever or chills. No abdominal pain. No dysuria or diarrhea. PHYSICAL EXAMINATION: VITAL SIGNS: Temperature 97.3, pulse 86, respiratory rate 18, and blood pressure 122/66. HEENT: No pale conjunctivae. No icterus. NECK: No lymphadenopathy. CHEST: Clear. HEART: S1 and S2. ABDOMEN: Soft. Umbilical hernia site is improving. No evidence of infection. EXTREMITIES: No cyanosis at this time. NEUROLOGIC: Awake. LABORATORY AND DIAGNOSTIC DATA: White blood cells 4.2, hemoglobin 10, platelets 97,000. UA, 5 to 10 red blood cells. BUN 8, creatinine 0.5. ALT, AST, alkaline phosphatase unremarkable. Venous duplex negative. ASSESSMENT: The patient is a 68-year-old female who is afebrile, normal white blood cell, and scant cough appeared to be due to CHF, pulmonary congestion, doubt pneumonia. PLAN: 1. We will monitor the patient off of antibiotics. 2. Monitor CBC. 3. Monitor BMP. 4. Monitor chest x-ray. 5. Based on the patient's clinical course and laboratories, we will do further recommendation. Thank you for this consultation. I will follow the patient with you during this hospitalization. Samuel Trinidad M.D. DR: Eric JOB#: [id number] CC:
[2018-10-04] MEDS: Atorvastatin 20mg tab ORAL SCH (21:12)
--- NOTE | 2018-10-04 21:13 | Coder Physician Query ---
Clarification is required for compliance, coding accuracy, and to reflect severity of illness for this patient Dear Colton Fish Date: 10/04/2018 Sterile Process Coordinator/CDS Name: Damaris Goldberg 68 year old female, with complaints of shortness of breath, CXR- mild cardiomegaly, possible small pleural effusion. Lisinopril 20 mg po daily. Please Clarify: Acuity [] Acute [] Chronic [] Acute on Chronic Type [] Systolic [] Diastolic [] Systolic & Diastolic (Combined) [] Other: Present on Admission: [] Yes [] No [] Clinically Undetermined Physician signature Date Please also document in your Progress Notes and/or Discharge Summary and indicate if the condition was present on admission. MTDD
--- NOTE | 2018-10-04 23:45 | Consultation ---
DATE OF CONSULTATION: 10/04/2018 GASTROENTEROLOGY CONSULTATION CHIEF COMPLAINT: I was asked to see this patient by Dr. Donovan Francois for evaluation of abdominal wound. HISTORY OF PRESENT ILLNESS: The patient is a 68-year-old woman with a long-standing history of abdominal umbilical hernia who went to [place] about 4 weeks ago and had hernia repair. It is unclear whether they used a mesh, but the patient has been noticing wound dehiscence with some drainage since then. She subsequently had some swelling in her legs and came to this hospital where she has been admitted. The patient has had few colonoscopies, the last one about 5 years ago. She cannot recall any significant findings. X-rays have shown mild cardiomegaly, but no evidence of deep vein thrombosis on ultrasound. PAST MEDICAL HISTORY: History of abdominal wall hernia, hypercholesterolemia, diabetes, which is insulin dependent, and hypertension. FAMILY HISTORY: Noncontributory. SOCIAL HISTORY: The patient is in descent. REVIEW OF SYSTEMS: Otherwise negative. PHYSICAL EXAMINATION: GENERAL: An elderly woman, seen in her room with her daughter at bedside. HEENT: Normocephalic and atraumatic. Sclerae anicteric. Oropharynx clear. NECK: Supple. CHEST: Clear to auscultation. CARDIOVASCULAR: Revealed a regular rate. ABDOMEN: Soft and obese with good bowel sounds. There was a central quarter-sized wound, which is open with some black suture material visible. There is no fluctuance or tenderness. There is a minor amount of discharge in the dressing which is serosanguineous. EXTREMITIES: Reveal trace edema. NEUROLOGIC: Grossly nonfocal. LABORATORY DATA: Noted. ASSESSMENT: This patient presents with a wound dehiscence and a hernia repair. A CT scan has been ordered which is necessary to determine if there is a mesh material. An infected mesh material would significantly alter management in this patient. Surgical staff is already following the patient and will get followup recommendations. Antibiotics should be given for possible wound infection until the matter is further clarified. In the meantime, oral diet can be given as tolerated. RECOMMENDATIONS: Per above discussion and per orders written in the chart. Thank you for asking me to participate in the care of this patient. Leta Villar M.D. DR: ARUL JOB#: [id number] CC: VANDANA
[2018-10-05] VITALS: BP 144/66
--- NOTE | 2018-10-05 | NUR ---
NURSE NOTES: pt sleeping no change in condition. will continue to monitor for any change in condition.
--- NOTE | 2018-10-05 00:31 | Consultation ---
DATE OF CONSULTATION: 10/04/2018 CARDIOLOGY CONSULTATION CONSULTING PHYSICIAN: Denzel Castillo M.D. REFERRING PHYSICIAN: Dr. Donovan Francois. REASON FOR CONSULTATION: Hypertensive urgency, chest pain, and shortness of breath. HISTORY OF PRESENT ILLNESS: The patient is a 68-year-old lady with history of hypertension and diabetes presented to the emergency room for uncontrolled diabetes and accelerated hypertension. The patient lightheaded and weak and had left arm pain. The patient was admitted. A Cardiology consultation was obtained for further evaluation and management. REVIEW OF SYSTEMS: Review of systems was negative other than what was mentioned in the history of present illness. PAST MEDICAL HISTORY: History of hypertension ____ hyperlipidemia. MEDICATIONS: Include lisinopril and hydrochlorothiazide, insulin, gabapentin, and atorvastatin. SOCIAL HISTORY: She lives at home. Does smoke or drink alcohol. PHYSICAL EXAMINATION: VITAL SIGNS: Show blood pressure of 135/69, pulse 79, respirations 18, and temperature 98. HEENT: Head and neck showed no JVD or carotid bruits. LUNGS: Clear. CARDIOVASCULAR: Regular S1 and S2 with no gallop or murmur. ABDOMEN: Soft. EXTREMITIES: No pitting edema. DIAGNOSTIC DATA: EKG shows sinus rhythm with no acute ST-T wave abnormalities. Labs show white count of 4.7, hematocrit 10.5, hematocrit of 30, and platelet count of 90,000. Sodium 142, potassium 3.6, BUN of 8, creatinine 0.5, and glucose of 116. Troponin is negative x2. D-dimer is 0.538. ASSESSMENT AND PLAN: 1. Shortness of breath and elevated D-dimer. Lower extremity duplex showed no evidence of DVT. Currently, she is not short of breath. 2. Hypertension, on lisinopril 20 mg daily ____ clonidine. 3. Hyperlipidemia, on Lipitor. 4. Uncontrolled diabetes, on insulin. We will also get an echocardiogram for further evaluation and management. Thank you very much for allowing me to participate in the care of this patient. Please do not hesitate to contact for any questions regarding my evaluation. Sincerely, Denzel Castillo M.D. DR: CHAN JOB#: [id number] CC:
[2018-10-05 04:00] VITALS: BP 142/67
--- NOTE | 2018-10-05 04:00 | NUR ---
NURSE NOTES: pt sleeping. no acute distress noted. no s/s of pain. will continue to monitor for any change in condition.
[2018-10-05] MEDS: NovoLOG Insulin Flexpen SUBQ SCH ×4 (06:04→21:46)
--- NOTE | 2018-10-05 06:35 | NUR ---
NURSE NOTES: Pt remains stable, no change in condition. pt AOx4, no acute distress noted. bed locked and lowest position, side rail upx2, call light and belonging within reach. all needs met during my shift. will endorse plan of care to incoming nurse.
--- NOTE | 2018-10-05 07:22 | NUR ---
HAND-OFF: Report given to FUNMILAYO Foley.
--- NOTE | 2018-10-05 07:22 | NUR ---
NURSE NOTES: Received report from Alesia MELLO. A0X4 and Pt in bed awake. No c/o pain and Denied SOB. No signs of distress noted. On room air. Bed in lowest position and locked. Noted an open surgical woundwith some slough on abdomen covered with dry gauze . Will continue the Tx as ordered. IV site L wrist 22G SL intact and patent. side railsx2 up. Abdomen CT still pending and will continue to follow with radiology dept. Will continue to plan of care.
[2018-10-05 07:59] LABS: HEMATOCRIT 32.1 % (37.0-47.0); HEMOGLOBIN 10.7 G/DL (12.0-16.0); MEAN CORPUSCULAR VOLUME 86 FL (80-99); PLATELET COUNT 91 K/UL (150-450); RED BLOOD COUNT 3.75 M/UL (4.20-5.40); RED CELL DISTRIBUTION WIDTH 14.6 % (11.6-14.8); WHITE BLOOD COUNT 3.4 K/UL (4.8-10.8)
[2018-10-05 08:00] VITALS: BP 134/86
[2018-10-05 08:10] LABS: ANION GAP 5 mmol/L (5-15); BLOOD UREA NITROGEN 11 mg/dL (7-18); CALCIUM 9.7 MG/DL (8.5-10.1); CARBON DIOXIDE 31 MMOL/L (21-32); CHLORIDE 107 MMOL/L (98-107); CREATININE 0.5 MG/DL (0.55-1.30); SODIUM 143 MMOL/L (136-145)
[2018-10-05] MEDS: Lisinopril 20mg tab ORAL SCH (09:04)
[2018-10-05] MEDS: Aspirin EC 81mg tab ORAL SCH (09:04)
[2018-10-05] MEDS: Heparin 5000 units/ml inj SUBQ SCH (09:10)
[2018-10-05] MEDS: metFORMIN 500mg tab ORAL SCH ×2 (09:36→17:34)
--- NOTE | 2018-10-05 09:59 | Pulmonology Progress Note ---
Assessment/Plan Assessment/Plan ASSESSMENT Hypertensive urgency POA -resolved Lightheadedness and weakness , possibly due to hypertensive urgency Chest pain with SOB Thrombocytopenia Diabetes mellitus Surgical wound dehiscence PLAN OF CARE tele serial troponin negative, ECG no acute ischemic changes, pt rueld out for acute PR Venous Duplex BLE negative, D dimer with mild elevation ECHO cardio eval pending BP stabilized, restarted on Lisinopril with holding parameters lipid panel stable , restarted statin TSH WNL BS management as per endo recs HgA1c -7.2 nearly at goal PLT trending down, will dc heparin, patient ambulates surgery eval re umbilical wound appreciated wound care CT A/P to evaluate for possible underlying pathology peening ( without contrast), pt on metformin, if IV contrast needed, Metformin needs to be held for 48 hsr supportive care PT eval and Rx case discussed and evaluated by supervising physician Subjective Allergies: Coded Allergies: PENICILLINS (Verified Allergy, Severe, anaphalaxtic, 10/03/18) Subjective feeling better no chest pain, no SOB, ambulates Objective Last 24 Hour Vital Signs Date Time Temp Pulse Resp B/P (MAP) Pulse Ox O2 Delivery O2 Flow Rate FiO2 10/05/18 09:42 78 18 95 Room Air 21 10/05/18 09:04 145/60 10/05/18 08:00 97.3 77 20 134/86 (102) 94 10/05/18 04:00 98.2 82 19 142/67 (92) 97 10/05/18 04:00 73 10/05/18 00:00 98.5 83 18 144/66 (92) 97 10/05/18 00:00 79 10/04/18 23:52 80 18 96 Room Air 21 10/04/18 21:00 Room Air 10/04/18 20:00 98.2 85 18 141/65 (90) 96 10/04/18 20:00 87 10/04/18 16:00 98.0 79 18 135/69 (91) 96 10/04/18 16:00 76 10/04/18 12:00 86 10/04/18 12:00 97.5 87 20 122/66 (84) 97 Intake and Output 10/04/18 10/05/18 19:00 07:00 Intake Total 360 ml 200 ml Balance 360 ml 200 ml Intake Oral 360 ml 200 ml # Voids 3 1 Objective General Appearance: alert - Persian speaking female in NAD Lines, tubes and drains: peripheral HEENT: normocephalic, atraumatic, anicteric, mucous membranes moist Neck: non-tender, normal alignment, supple Respiratory/Chest: lungs clear, no respiratory distress, no accessory muscle use Cardiovascular/Chest: normal rate, no JVD Abdomen: normal bowel sounds, non tender, soft - obese Extremities: normal range of motion, non-tender, no calf tenderness, normal capillary refill Skin Exam: warm/dry Neurologic: no motor/sensory deficits, alert, responsive Musculoskeletal: normal muscle bulk Laboratory Tests 10/04/18 10:45: D-Dimer 0.53H 10/04/18 13:23: Troponin I 0.000 10/05/18 07:20: Hemoglobin A1c [Pending] 10/05/18 07:25: White Blood Count 3.4L, Red Blood Count 3.75L, Hemoglobin 10.7L, Hematocrit 32.1L, Mean Corpuscular Volume 86, Mean Corpuscular Hemoglobin 28.4, Mean Corpuscular Hemoglobin Concent 33.1, Red Cell Distribution Width 14.6, Platelet Count 91L, Mean Platelet Volume 6.0L, Neutrophils (%) (Auto) , Lymphocytes (%) ( Auto) , Monocytes (%) (Auto) , Eosinophils (%) (Auto) , Basophils (%) (Auto) , Neutrophils % (Manual) [Pending], Lymphocytes % (Manual) [Pending], Platelet Estimate [Pending], Platelet Morphology [Pending], Sodium Level 143, Potassium Level 4.0, Chloride Level 107, Carbon Dioxide Level 31, Anion Gap 5, Blood Urea Nitrogen 11, Creatinine 0.5L, Estimat Glomerular Filtration Rate > 60, Glucose Level 122H, Calcium Level 9.7, Pro-B-Type Natriuretic Peptide 26 Current Medications Medications (Trade) Dose Ordered Sig/Shila Route PRN Reason Start Time Stop Time Status Last Admin Dose Admin Acetaminophen (Tylenol) 650 mg Q4H PRN ORAL fever 10/03/18 17:30 11/02/18 17:29 Albuterol/ Ipratropium (Albuterol/ Ipratropium) 3 ml Q4H PRN HHN Shortness of Breath 10/03/18 17:30 10/08/18 17:29 Aspirin (Ecotrin) 81 mg DAILY ORAL 10/05/18 09:00 11/04/18 08:59 10/05/18 09:04 Atorvastatin Calcium (Lipitor) 40 mg BEDTIME ORAL 10/04/18 21:00 11/03/18 20:59 10/04/18 21:12 Clonidine HCl (Catapres Tab) 0.1 mg Q4H PRN ORAL sbp more than 160 10/03/18 17:30 11/02/18 17:29 Dextrose (Dextrose 50%) 25 ml Q30M PRN IV Hypoglycemia 10/03/18 17:30 11/02/18 17:29 Dextrose (Dextrose 50%) 50 ml Q30M PRN IV Hypoglycemia 10/03/18 17:30 11/02/18 17:29 Gabapentin (Neurontin) 600 mg THREE TIMES A DAY ORAL 10/03/18 18:00 11/02/18 17:59 10/05/18 09:04 Heparin Sodium (Porcine) (Heparin 5000 units/ml) 5,000 units EVERY 12 HOURS SUBQ 10/04/18 21:00 11/02/18 20:59 10/05/18 09:10 Insulin Aspart (NovoLOG) BEFORE MEALS AND HS SUBQ 10/03/18 21:00 11/02/18 20:59 10/05/18 06:04 Lisinopril (Prinivil) 20 mg DAILY ORAL 10/05/18 09:00 11/04/18 08:59 10/05/18 09:04 Metformin HCl (Glucophage) 1,000 mg BID ORAL 10/05/18 09:30 11/04/18 09:29 10/05/18 09:36 Morphine Sulfate (Morphine Sulfate) 2 mg Q4H PRN IVP severe pain 7-10 10/03/18 17:30 10/10/18 17:29 Nitroglycerin (Ntg) 0.4 mg Q5M X 3 DOSES PRN SL Prn Chest Pain 10/03/18 17:30 11/02/18 17:29 Ondansetron HCl (Zofran) 4 mg Q6H PRN IVP Nausea & Vomiting 10/03/18 17:30 11/02/18 17:29 Polyethylene Glycol (Miralax) 17 gm HSPRN PRN ORAL Constipation 10/03/18 17:30 7/14/19 17:29 Temazepam (Restoril) 15 mg HSPRN PRN ORAL Insomnia 10/03/18 17:30 10/10/18 17:29 10/04/18 21:11 Sangeetha [place] NP Oct 05, 2018 09:59
--- NOTE | 2018-10-05 10:19 | General Progress Note ---
Assessment/Plan Problem List: (1) UTI (urinary tract infection) ICD Codes: N39.0 - Urinary tract infection, site not specified SNOMED: 10333502 (2) Pancytopenia ICD Codes: D61.818 - Other pancytopenia SNOMED: 929290177 (3) HTN (hypertension) ICD Codes: I10 - Essential (primary) hypertension SNOMED: 14604079 (4) Anemia ICD Codes: D64.9 - Anemia, unspecified SNOMED: 422199038 (5) Chest tightness ICD Codes: R07.89 - Other chest pain SNOMED: 73008648 (6) CHF (congestive heart failure) ICD Codes: I50.9 - Heart failure, unspecified SNOMED: 28528443 (7) Episode of generalized weakness ICD Codes: R53.1 - Weakness SNOMED: 78789021 Status: unchanged Assessment/Plan: pt diet abx cardio gi heme f/u cbc bmp am Subjective Constitutional: Reports: weakness Respiratory: Reports: shortness of breath Allergies: Coded Allergies: PENICILLINS (Verified Allergy, Severe, anaphalaxtic, 10/03/18) All Systems: reviewed and negative except above Subjective sl dizzy Objective Last 24 Hour Vital Signs Date Time Temp Pulse Resp B/P (MAP) Pulse Ox O2 Delivery O2 Flow Rate FiO2 10/05/18 09:42 78 18 95 Room Air 21 10/05/18 09:04 145/60 10/05/18 08:00 97.3 77 20 134/86 (102) 94 10/05/18 04:00 98.2 82 19 142/67 (92) 97 10/05/18 04:00 73 10/05/18 00:00 98.5 83 18 144/66 (92) 97 10/05/18 00:00 79 10/04/18 23:52 80 18 96 Room Air 21 10/04/18 21:00 Room Air 10/04/18 20:00 98.2 85 18 141/65 (90) 96 10/04/18 20:00 87 10/04/18 16:00 98.0 79 18 135/69 (91) 96 10/04/18 16:00 76 10/04/18 12:00 86 10/04/18 12:00 97.5 87 20 122/66 (84) 97 Intake and Output 10/04/18 10/05/18 19:00 07:00 Intake Total 360 ml 200 ml Balance 360 ml 200 ml Intake Oral 360 ml 200 ml # Voids 3 1 Laboratory Tests 10/04/18 10:45: D-Dimer 0.53H 10/04/18 13:23: Troponin I 0.000 10/05/18 07:20: Hemoglobin A1c [Pending] 10/05/18 07:25: White Blood Count 3.4L, Red Blood Count 3.75L, Hemoglobin 10.7L, Hematocrit 32.1L, Mean Corpuscular Volume 86, Mean Corpuscular Hemoglobin 28.4, Mean Corpuscular Hemoglobin Concent 33.1, Red Cell Distribution Width 14.6, Platelet Count 91L, Mean Platelet Volume 6.0L, Neutrophils (%) (Auto) , Lymphocytes (%) ( Auto) , Monocytes (%) (Auto) , Eosinophils (%) (Auto) , Basophils (%) (Auto) , Differential Total Cells Counted 100, Neutrophils % (Manual) 66, Lymphocytes % ( Manual) 27, Monocytes % (Manual) 6, Eosinophils % (Manual) 1, Basophils % ( Manual) 0, Band Neutrophils 0, Platelet Estimate DecreasedL, Platelet Morphology Normal, Anisocytosis 1+, Sodium Level 143, Potassium Level 4.0, Chloride Level 107, Carbon Dioxide Level 31, Anion Gap 5, Blood Urea Nitrogen 11 , Creatinine 0.5L, Estimat Glomerular Filtration Rate > 60, Glucose Level 122H, Calcium Level 9.7, Pro-B-Type Natriuretic Peptide 26 Height (Feet): 5 Height (Inches): 3.00 Weight (Pounds): 185 General Appearance: lethargic EENT: normal ENT inspection Neck: normal alignment Cardiovascular: normal peripheral pulses, normal rate, regular rhythm Respiratory/Chest: chest wall non-tender, lungs clear, normal breath sounds Abdomen: normal bowel sounds, non tender, soft Extremities: normal inspection Edema: no edema noted Arm (L), no edema noted Arm (R), no edema noted Leg (L), no edema noted Leg (R), no edema noted Pedal (L), no edema noted Pedal (R), no edema noted Generalized Neurologic: responsive, motor weakness Skin: normal pigmentation, warm/dry Donovan Francois DO Oct 05, 2018 10:19
[2018-10-05 12:00] VITALS: BP 146/65
--- NOTE | 2018-10-05 13:30 | NUR ---
NURSE NOTES: Patient does not need to be held her Metformin after CT scan with oral contrast per [place] [employer].
--- NOTE | 2018-10-05 13:55 | Surgery Progress Note ---
Surgery Progress Note Subjective Additional Comments no acute events. pending CT scan Objective Last 24 Hour Vital Signs Date Time Temp Pulse Resp B/P (MAP) Pulse Ox O2 Delivery O2 Flow Rate FiO2 10/05/18 09:42 78 18 95 Room Air 21 10/05/18 09:04 145/60 10/05/18 09:00 Room Air 10/05/18 08:00 97.3 77 20 134/86 (102) 94 10/05/18 08:00 85 10/05/18 04:00 98.2 82 19 142/67 (92) 97 10/05/18 04:00 73 10/05/18 00:00 98.5 83 18 144/66 (92) 97 10/05/18 00:00 79 10/04/18 23:52 80 18 96 Room Air 21 10/04/18 21:00 Room Air 10/04/18 20:00 98.2 85 18 141/65 (90) 96 10/04/18 20:00 87 10/04/18 16:00 98.0 79 18 135/69 (91) 96 10/04/18 16:00 76 I&O Intake and Output 10/04/18 10/05/18 19:00 07:00 Intake Total 360 ml 200 ml Balance 360 ml 200 ml Intake Oral 360 ml 200 ml # Voids 3 1 Dressing: dry Wound: clean Drains: none Cardiovascular: RSR Respiratory: clear Abdomen: soft, flat, non-tender, present bowel sounds, non-distended Extremities: no tenderness, no cyanosis Laboratory Tests Test 10/05/18 07:20 10/05/18 07:25 10/05/18 11:27 10/05/18 11:30 Hemoglobin A1c 6.9 % (4.3-6.0) H White Blood Count 3.4 K/UL (4.8-10.8) L Red Blood Count 3.75 M/UL (4.20-5.40) L Hemoglobin 10.7 G/DL (12.0-16.0) L Hematocrit 32.1 % (37.0-47.0) L Mean Corpuscular Volume 86 FL (80-99) Mean Corpuscular Hemoglobin 28.4 PG (27.0-31.0) Mean Corpuscular Hemoglobin Concent 33.1 G/DL (32.0-36.0) Red Cell Distribution Width 14.6 % (11.6-14.8) Platelet Count 91 K/UL (150-450) L Mean Platelet Volume 6.0 FL (6.5-10.1) L Neutrophils (%) (Auto) % (45.0-75.0) Lymphocytes (%) (Auto) % (20.0-45.0) Monocytes (%) (Auto) % (1.0-10.0) Eosinophils (%) (Auto) % (0.0-3.0) Basophils (%) (Auto) % (0.0-2.0) Differential Total Cells Counted 100 Neutrophils % (Manual) 66 % (45-75) Lymphocytes % (Manual) 27 % (20-45) Monocytes % (Manual) 6 % (1-10) Eosinophils % (Manual) 1 % (0-3) Basophils % (Manual) 0 % (0-2) Band Neutrophils 0 % (0-8) Platelet Estimate Decreased L Platelet Morphology Normal Anisocytosis 1+ Sodium Level 143 MMOL/L (136-145) Potassium Level 4.0 MMOL/L (3.5-5.1) Chloride Level 107 MMOL/L (98-107) Carbon Dioxide Level 31 MMOL/L (21-32) Anion Gap 5 mmol/L (5-15) Blood Urea Nitrogen 11 mg/dL (7-18) Creatinine 0.5 MG/DL (0.55-1.30) L Estimat Glomerular Filtration Rate > 60 mL/min (>60) Glucose Level 122 MG/DL (74-106) H Calcium Level 9.7 MG/DL (8.5-10.1) Ferritin 29 NG/ML (8-388) Pro-B-Type Natriuretic Peptide 26 pg/mL (0-125) Vitamin B12 Level 781 PG/ML (193-986) Folate 42.9 NG/ML (8.6-58.9) Thyroid Stimulating Hormone (TSH) 1.075 uiU/mL (0.358-3.740) HIV (1&2) Antibody Rapid Negative (NEGATIVE) Prothrombin Time 10.8 SEC (9.30-11.50) Prothromb Time International Ratio 1.0 (0.9-1.1) Hepatitis A IgM Antibody Pending Hepatitis B Surface Antigen Pending Hepatitis B Core IgM Antibody Pending Hepatitis C Antibody Pending Plan Problems: (1) Surgical wound dehiscence Assessment & Plan: This is a 5-year-old female who was recently gone to [place] approximately 20 days ago for ventral hernia repair. He is unaware of the exact repair that was performed and if mesh was or was not used. Patient now presents with shortness of breath and discomfort. On admission noted to have midline wound dehiscence with sutures present. On evaluation patient has a 3 cm x 3 cm dehisced midline wound with unknown depth. Difficult to discern if there is underlying mesh or not. Ultimately 3 nonabsorbable sutures are identified within the subcutis tissue and unsure if these are related to mesh placement of a possible overlay or not. Minimal erythema nontender no drainage. Patient is a diabetic. Patient denies any complaints from the wound. Given recent surgical intervention in [place] there is significant concern of potential underlying wound pathology. Recommend CT abdomen and pelvis to evaluate for potential mesh placement seroma or bowel or other of normality within the repaired hernia. Okay for diet Venous duplex to evaluate for DVT We will continue to monitor Local wound care with plans for outpatient wound care upon discharge Thank you for allowing me to participate in patient's care (2) Surgical wound, non healing (3) CHF (congestive heart failure) (4) Chest tightness (5) Episode of generalized weakness Marlon Miles Oct 05, 2018 13:55
--- NOTE | 2018-10-05 14:48 | NUR ---
NURSE NOTES: Patient returned back from radiology dept after CT scan done.
--- NOTE | 2018-10-05 14:51 | NUR ---
NURSE NOTES: Patient's sister's phone number : [phone]
--- NOTE | 2018-10-05 15:16 | Consultation ---
DATE OF CONSULTATION: 10/05/2018 ENDOCRINOLOGY CONSULTATION: CONSULTING PHYSICIAN: Jim Allred M.D. REFERRING PHYSICIAN: Donovan Francois D.O. REASON FOR CONSULTATION: Diabetes management. HISTORY OF PRESENT ILLNESS: The patient is a pleasant 68-year-old female who was recently moved from [place] to [place]. She has history of insulin-dependent diabetes, on Lantus 18 units at bedtime and Humalog 8 units before each meal as well as metformin 1000 mg b.i.d. The patient is morbidly obese. The patient also has history of hypertension, presented to the hospital with worsening of the shortness of breath, swelling, and lightheadedness, admitted to the hospital for cardiac evaluation. I was called to manage diabetes. PAST MEDICAL HISTORY: 1. Diabetes. 2. Obesity. 3. Hypertension. 4. Hyperlipidemia. MEDICATIONS: Reviewed and reconciled. SOCIAL HISTORY: No smoking, alcohol, or drug use. FAMILY HISTORY: Noncontributory. ALLERGIES TO MEDICATIONS: To penicillin. LABORATORY VALUES: Sodium 141, potassium 3.7, chloride 103, bicarb 31, BUN 11, creatinine 0.6, glucose 221. Hemoglobin A1c of 7.2. TSH of 0.3. PHYSICAL EXAMINATION: GENERAL: Awake and alert. VITAL SIGNS: Blood pressure 160/80, pulse of 80, temperature 98.2, respiratory rate of 18. HEENT: Pupils are equal and reactive to light. Sclerae are anicteric. NECK: No JVD. No thyromegaly. LUNGS: Clear. HEART: Regular rate and rhythm. ABDOMEN: Positive bowel sounds. EXTREMITIES: Positive for edema. DIAGNOSES: 1. CHF. 2. Hypertension, out of control. 3. Diabetes, out of control. PLAN: 1. Start metformin 1000 mg b.i.d. 2. Continue sliding scale insulin before meals and at bedtime. 3. Levemir and NovoLog insulin will be added if the blood sugar starts rising. Currently, there is no need to start this patient on insulin dose. I will follow her closely during hospital stay. Thank you, Dr. Francois, for the courtesy of this consultation. Jim Allred M.D. DR: FUNMILAYO/VERNELL JOB#: [id number] CC: VANDANA
[2018-10-05 16:00] VITALS: BP 143/68
--- NOTE | 2018-10-05 16:04 | NUR ---
PT Note PT dejah completed, treatment initiated. Patient has muscle weakness and decreased activity tolerance. She can benefit from PT services to increase her muscle strength to improve her functional mobility and gait to prior level of function. Addendum: 10/05/18 at 1606 by BRIAN ROCK PT Amended: Links added.
--- NOTE | 2018-10-05 16:36 | Cardiac Electrophysiology PN ---
Assessment/Plan Assessment/Plan 1. Shortness of breath and elevated D-dimer. Lower extremity duplex showed no evidence of DVT. Currently, she is not short of breath.No [place] Echo pending 2. Hypertension, on lisinopril 20 mg daily and prn clonidine. 3. Hyperlipidemia, on Lipitor. 4. Uncontrolled diabetes, on insulin. 5. Chest pain. Ruled out for [place]. ECG Nl Stress test in am. BRETT RN Subjective Subjective No CP or SOB. TTE still pending. Had abdominal CT scan today Objective Last 24 Hour Vital Signs Date Time Temp Pulse Resp B/P (MAP) Pulse Ox O2 Delivery O2 Flow Rate FiO2 10/05/18 16:00 97.9 80 18 143/68 (93) 97 10/05/18 12:00 77 10/05/18 12:00 98.5 79 20 146/65 (92) 99 10/05/18 09:42 78 18 95 Room Air 21 10/05/18 09:04 145/60 10/05/18 09:00 Room Air 10/05/18 08:00 97.3 77 20 134/86 (102) 94 10/05/18 08:00 85 10/05/18 04:00 98.2 82 19 142/67 (92) 97 10/05/18 04:00 73 10/05/18 00:00 98.5 83 18 144/66 (92) 97 10/05/18 00:00 79 10/04/18 23:52 80 18 96 Room Air 21 10/04/18 21:00 Room Air 10/04/18 20:00 98.2 85 18 141/65 (90) 96 10/04/18 20:00 87 Intake and Output 10/04/18 10/05/18 19:00 07:00 Intake Total 360 ml 200 ml Balance 360 ml 200 ml Intake Oral 360 ml 200 ml # Voids 3 1 Laboratory Tests Test 10/05/18 07:20 10/05/18 07:25 10/05/18 11:27 10/05/18 11:30 Hemoglobin A1c 6.9 % (4.3-6.0) H White Blood Count 3.4 K/UL (4.8-10.8) L Red Blood Count 3.75 M/UL (4.20-5.40) L Hemoglobin 10.7 G/DL (12.0-16.0) L Hematocrit 32.1 % (37.0-47.0) L Mean Corpuscular Volume 86 FL (80-99) Mean Corpuscular Hemoglobin 28.4 PG (27.0-31.0) Mean Corpuscular Hemoglobin Concent 33.1 G/DL (32.0-36.0) Red Cell Distribution Width 14.6 % (11.6-14.8) Platelet Count 91 K/UL (150-450) L Mean Platelet Volume 6.0 FL (6.5-10.1) L Neutrophils (%) (Auto) % (45.0-75.0) Lymphocytes (%) (Auto) % (20.0-45.0) Monocytes (%) (Auto) % (1.0-10.0) Eosinophils (%) (Auto) % (0.0-3.0) Basophils (%) (Auto) % (0.0-2.0) Differential Total Cells Counted 100 Neutrophils % (Manual) 66 % (45-75) Lymphocytes % (Manual) 27 % (20-45) Monocytes % (Manual) 6 % (1-10) Eosinophils % (Manual) 1 % (0-3) Basophils % (Manual) 0 % (0-2) Band Neutrophils 0 % (0-8) Platelet Estimate Decreased L Platelet Morphology Normal Anisocytosis 1+ Sodium Level 143 MMOL/L (136-145) Potassium Level 4.0 MMOL/L (3.5-5.1) Chloride Level 107 MMOL/L (98-107) Carbon Dioxide Level 31 MMOL/L (21-32) Anion Gap 5 mmol/L (5-15) Blood Urea Nitrogen 11 mg/dL (7-18) Creatinine 0.5 MG/DL (0.55-1.30) L Estimat Glomerular Filtration Rate > 60 mL/min (>60) Glucose Level 122 MG/DL (74-106) H Calcium Level 9.7 MG/DL (8.5-10.1) Ferritin 29 NG/ML (8-388) Pro-B-Type Natriuretic Peptide 26 pg/mL (0-125) Vitamin B12 Level 781 PG/ML (193-986) Folate 42.9 NG/ML (8.6-58.9) Thyroid Stimulating Hormone (TSH) 1.075 uiU/mL (0.358-3.740) HIV (1&2) Antibody Rapid Negative (NEGATIVE) Prothrombin Time 10.8 SEC (9.30-11.50) Prothromb Time International Ratio 1.0 (0.9-1.1) Hepatitis A IgM Antibody Pending Hepatitis B Surface Antigen Pending Hepatitis B Core IgM Antibody Pending Hepatitis C Antibody Pending Objective HEENT: Head and neck showed no JVD or carotid bruits. LUNGS: Clear. CARDIOVASCULAR: Regular S1 and S2 with no gallop or murmur. ABDOMEN: Soft. EXTREMITIES: No pitting edema. Denzel Castillo MD Oct 05, 2018 16:36
--- NOTE | 2018-10-05 17:12 | General Progress Note ---
Assessment/Plan Status: unchanged Assessment/Plan: Assessment - s/p ventral hernia repain - Failure of wound closure Recommendations - await CT scan - po diet - wound care - surgical f/u Subjective Allergies: Coded Allergies: PENICILLINS (Verified Allergy, Severe, anaphalaxtic, 10/03/18) Subjective Above noted no new complaints await CT Objective Last 24 Hour Vital Signs Date Time Temp Pulse Resp B/P (MAP) Pulse Ox O2 Delivery O2 Flow Rate FiO2 10/05/18 16:00 97.9 80 18 143/68 (93) 97 10/05/18 12:00 77 10/05/18 12:00 98.5 79 20 146/65 (92) 99 10/05/18 09:42 78 18 95 Room Air 21 10/05/18 09:04 145/60 10/05/18 09:00 Room Air 10/05/18 08:00 97.3 77 20 134/86 (102) 94 10/05/18 08:00 85 10/05/18 04:00 98.2 82 19 142/67 (92) 97 10/05/18 04:00 73 10/05/18 00:00 98.5 83 18 144/66 (92) 97 10/05/18 00:00 79 10/04/18 23:52 80 18 96 Room Air 21 10/04/18 21:00 Room Air 10/04/18 20:00 98.2 85 18 141/65 (90) 96 10/04/18 20:00 87 Intake and Output 10/04/18 10/05/18 19:00 07:00 Intake Total 360 ml 200 ml Balance 360 ml 200 ml Intake Oral 360 ml 200 ml # Voids 3 1 Laboratory Tests 10/05/18 07:20: Hemoglobin A1c 6.9H 10/05/18 07:25: White Blood Count 3.4L, Red Blood Count 3.75L, Hemoglobin 10.7L, Hematocrit 32.1L, Mean Corpuscular Volume 86, Mean Corpuscular Hemoglobin 28.4, Mean Corpuscular Hemoglobin Concent 33.1, Red Cell Distribution Width 14.6, Platelet Count 91L, Mean Platelet Volume 6.0L, Neutrophils (%) (Auto) , Lymphocytes (%) ( Auto) , Monocytes (%) (Auto) , Eosinophils (%) (Auto) , Basophils (%) (Auto) , Differential Total Cells Counted 100, Neutrophils % (Manual) 66, Lymphocytes % ( Manual) 27, Monocytes % (Manual) 6, Eosinophils % (Manual) 1, Basophils % ( Manual) 0, Band Neutrophils 0, Platelet Estimate DecreasedL, Platelet Morphology Normal, Anisocytosis 1+, Sodium Level 143, Potassium Level 4.0, Chloride Level 107, Carbon Dioxide Level 31, Anion Gap 5, Blood Urea Nitrogen 11 , Creatinine 0.5L, Estimat Glomerular Filtration Rate > 60, Glucose Level 122H, Calcium Level 9.7, Ferritin 29, Pro-B-Type Natriuretic Peptide 26, Vitamin B12 Level 781, Folate 42.9, Thyroid Stimulating Hormone (TSH) 1.075, HIV (1&2) Antibody Rapid Negative 10/05/18 11:27: Prothrombin Time 10.8, Prothromb Time International Ratio 1.0 10/05/18 11:30: Hepatitis A IgM Antibody [Pending], Hepatitis B Surface Antigen [Pending], Hepatitis B Core IgM Antibody [Pending], Hepatitis C Antibody [Pending] Height (Feet): 5 Height (Inches): 3.00 Weight (Pounds): 185 Objective WDWN L woman NCAT supple CTA RR abd soft obese , central wound without change no edema Leta Villar MD Oct 05, 2018 17:11
--- NOTE | 2018-10-05 17:13 | NUR ---
CASE MANAGEMENT: INITIAL REVIEW 68 YO F QUINNA FROM HOME CC: GEN WEAKNESS. PMHx: DM. HTN. HLP. SI:CHF (NEW DX) T 99 HR 78 RR 16 B/P 192/90 SATS 99% ON RA GLU 221 IS: NS BOLUS X1 PATIENT ADMITTED TO TELE 10/03/2018 @ 1535 DCP: PATIENT TO BE DISCHARGED TO HOME ONCE MEDICALLY CLEARED. PLAN OF CARE: 1. O2 and pulmonary treatment. 2. Blood pressure and blood sugar control. Addendum: 10/06/18 at 0933 by Gwendolyn Govea REFERRED
--- NOTE | 2018-10-05 19:32 | NUR ---
HAND-OFF: Report given to Alesia MELLO. Pt remains stable.
[2018-10-05 20:00] VITALS: BP 137/52
[2018-10-05] MEDS: Atorvastatin 20mg tab ORAL SCH (21:44)
[2018-10-06] VITALS: BP 127/64
--- NOTE | 2018-10-06 | NUR ---
NURSE NOTES: pt npo at this time. no acute distress noted. will continue to monitor for any change in condition.
[2018-10-06 04:00] VITALS: BP 131/61
--- NOTE | 2018-10-06 04:50 | NUR ---
NURSE NOTES: Dr Castillo at bedside. no new orders given. will continue pt for any change in condition.
--- NOTE | 2018-10-06 05:10 | Cardiac Electrophysiology PN ---
Assessment/Plan Assessment/Plan 1. Shortness of breath and mildly elevated D-dimer. Lower extremity duplex showed no evidence of DVT. Currently, she is not short of breath.No [place] Echo Nl EF. ? VQ scan per Dr Mayer 2. Hypertension, on lisinopril 20 mg daily and prn clonidine. 3. Hyperlipidemia, on Lipitor. 4. Uncontrolled diabetes, on insulin. 5. Chest pain. Ruled out for [place]. ECG Nl. Stress test today pending DW RN Subjective Subjective No CP or SOB. Stress test today is pending Objective Last 24 Hour Vital Signs Date Time Temp Pulse Resp B/P (MAP) Pulse Ox O2 Delivery O2 Flow Rate FiO2 10/06/18 04:00 97.4 76 18 131/61 (84) 98 10/06/18 04:00 68 10/06/18 00:00 98.1 76 18 127/64 (85) 98 10/05/18 21:00 Room Air 10/05/18 20:00 76 10/05/18 20:00 97.3 76 18 137/52 (80) 97 10/05/18 16:00 77 10/05/18 16:00 97.9 80 18 143/68 (93) 97 10/05/18 12:00 77 10/05/18 12:00 98.5 79 20 146/65 (92) 99 10/05/18 09:42 78 18 95 Room Air 21 10/05/18 09:04 145/60 10/05/18 09:00 Room Air 10/05/18 08:00 97.3 77 20 134/86 (102) 94 10/05/18 08:00 85 Intake and Output 10/05/18 10/06/18 18:59 06:59 Intake Total 360 ml Balance 360 ml Intake Oral 360 ml # Voids 3 Laboratory Tests Test 10/05/18 07:20 10/05/18 07:25 10/05/18 11:27 10/05/18 11:30 Hemoglobin A1c 6.9 % (4.3-6.0) H White Blood Count 3.4 K/UL (4.8-10.8) L Red Blood Count 3.75 M/UL (4.20-5.40) L Hemoglobin 10.7 G/DL (12.0-16.0) L Hematocrit 32.1 % (37.0-47.0) L Mean Corpuscular Volume 86 FL (80-99) Mean Corpuscular Hemoglobin 28.4 PG (27.0-31.0) Mean Corpuscular Hemoglobin Concent 33.1 G/DL (32.0-36.0) Red Cell Distribution Width 14.6 % (11.6-14.8) Platelet Count 91 K/UL (150-450) L Mean Platelet Volume 6.0 FL (6.5-10.1) L Neutrophils (%) (Auto) % (45.0-75.0) Lymphocytes (%) (Auto) % (20.0-45.0) Monocytes (%) (Auto) % (1.0-10.0) Eosinophils (%) (Auto) % (0.0-3.0) Basophils (%) (Auto) % (0.0-2.0) Differential Total Cells Counted 100 Neutrophils % (Manual) 66 % (45-75) Lymphocytes % (Manual) 27 % (20-45) Monocytes % (Manual) 6 % (1-10) Eosinophils % (Manual) 1 % (0-3) Basophils % (Manual) 0 % (0-2) Band Neutrophils 0 % (0-8) Platelet Estimate Decreased L Platelet Morphology Normal Anisocytosis 1+ Sodium Level 143 MMOL/L (136-145) Potassium Level 4.0 MMOL/L (3.5-5.1) Chloride Level 107 MMOL/L (98-107) Carbon Dioxide Level 31 MMOL/L (21-32) Anion Gap 5 mmol/L (5-15) Blood Urea Nitrogen 11 mg/dL (7-18) Creatinine 0.5 MG/DL (0.55-1.30) L Estimat Glomerular Filtration Rate > 60 mL/min (>60) Glucose Level 122 MG/DL (74-106) H Calcium Level 9.7 MG/DL (8.5-10.1) Ferritin 29 NG/ML (8-388) Pro-B-Type Natriuretic Peptide 26 pg/mL (0-125) Vitamin B12 Level 781 PG/ML (193-986) Folate 42.9 NG/ML (8.6-58.9) Thyroid Stimulating Hormone (TSH) 1.075 uiU/mL (0.358-3.740) HIV (1&2) Antibody Rapid Negative (NEGATIVE) Prothrombin Time 10.8 SEC (9.30-11.50) Prothromb Time International Ratio 1.0 (0.9-1.1) Hepatitis A IgM Antibody Pending Hepatitis B Surface Antigen Pending Hepatitis B Core IgM Antibody Pending Hepatitis C Antibody Pending Objective HEENT: Head and neck showed no JVD or carotid bruits. LUNGS: Clear. CARDIOVASCULAR: Regular S1 and S2 with no gallop or murmur. ABDOMEN: Soft. EXTREMITIES: No pitting edema. Denzel Castillo MD Oct 06, 2018 05:10
[2018-10-06] MEDS: NovoLOG Insulin Flexpen SUBQ SCH ×4 (05:49→21:27)
--- NOTE | 2018-10-06 06:26 | NUR ---
NURSE NOTES: Pt NPO since midnight. Pt remains stable, no change in condition. pt AOx4, no acute distress noted. bed locked and lowest position, side rail upx2, call light and belonging within reach. all needs met during my shift. will endorse plan of care to incoming nurse.
--- NOTE | 2018-10-06 06:32 | General Progress Note ---
Assessment/Plan Problem List: (1) Diabetes mellitus ICD Codes: E11.9 - Type 2 diabetes mellitus without complications SNOMED: 17975037 (2) CHF (congestive heart failure) ICD Codes: I50.9 - Heart failure, unspecified SNOMED: 09759463 (3) Chest tightness ICD Codes: R07.89 - Other chest pain SNOMED: 36443119 (4) Episode of generalized weakness ICD Codes: R53.1 - Weakness SNOMED: 42918725 (5) HTN (hypertension) ICD Codes: I10 - Essential (primary) hypertension SNOMED: 70710674 Status: unchanged Assessment/Plan: continue Metformin 1000 mg bid no need for scheduled basal / bolus insulin for now continue NISS ac / hs Subjective Allergies: Coded Allergies: PENICILLINS (Verified Allergy, Severe, anaphalaxtic, 10/03/18) All Systems: reviewed and negative except above Subjective events noted glucose values in controlled range Item Value Date Time Bedside Blood Glucose 125 mg/dl H 10/06/18 0549 Bedside Blood Glucose 144 mg/dl H 10/05/18 2146 Bedside Blood Glucose 127 mg/dl H 10/05/18 1734 Bedside Blood Glucose 139 mg/dl H 10/05/18 1130 Bedside Blood Glucose 115 mg/dl 10/05/18 0630 Objective Last 24 Hour Vital Signs Date Time Temp Pulse Resp B/P (MAP) Pulse Ox O2 Delivery O2 Flow Rate FiO2 10/06/18 04:00 97.4 76 18 131/61 (84) 98 10/06/18 04:00 68 10/06/18 00:00 98.1 76 18 127/64 (85) 98 10/05/18 21:00 Room Air 10/05/18 20:00 76 10/05/18 20:00 97.3 76 18 137/52 (80) 97 10/05/18 16:00 77 10/05/18 16:00 97.9 80 18 143/68 (93) 97 10/05/18 12:00 77 10/05/18 12:00 98.5 79 20 146/65 (92) 99 10/05/18 09:42 78 18 95 Room Air 21 10/05/18 09:04 145/60 10/05/18 09:00 Room Air 10/05/18 08:00 97.3 77 20 134/86 (102) 94 10/05/18 08:00 85 Intake and Output 10/05/18 10/06/18 18:59 06:59 Intake Total 360 ml Balance 360 ml Intake Oral 360 ml # Voids 3 Laboratory Tests 10/05/18 07:20: Hemoglobin A1c 6.9H 10/05/18 07:25: White Blood Count 3.4L, Red Blood Count 3.75L, Hemoglobin 10.7L, Hematocrit 32.1L, Mean Corpuscular Volume 86, Mean Corpuscular Hemoglobin 28.4, Mean Corpuscular Hemoglobin Concent 33.1, Red Cell Distribution Width 14.6, Platelet Count 91L, Mean Platelet Volume 6.0L, Neutrophils (%) (Auto) , Lymphocytes (%) ( Auto) , Monocytes (%) (Auto) , Eosinophils (%) (Auto) , Basophils (%) (Auto) , Differential Total Cells Counted 100, Neutrophils % (Manual) 66, Lymphocytes % ( Manual) 27, Monocytes % (Manual) 6, Eosinophils % (Manual) 1, Basophils % ( Manual) 0, Band Neutrophils 0, Platelet Estimate DecreasedL, Platelet Morphology Normal, Anisocytosis 1+, Sodium Level 143, Potassium Level 4.0, Chloride Level 107, Carbon Dioxide Level 31, Anion Gap 5, Blood Urea Nitrogen 11 , Creatinine 0.5L, Estimat Glomerular Filtration Rate > 60, Glucose Level 122H, Calcium Level 9.7, Ferritin 29, Pro-B-Type Natriuretic Peptide 26, Vitamin B12 Level 781, Folate 42.9, Thyroid Stimulating Hormone (TSH) 1.075, HIV (1&2) Antibody Rapid Negative 10/05/18 11:27: Prothrombin Time 10.8, Prothromb Time International Ratio 1.0 10/05/18 11:30: Hepatitis A IgM Antibody [Pending], Hepatitis B Surface Antigen [Pending], Hepatitis B Core IgM Antibody [Pending], Hepatitis C Antibody [Pending] Height (Feet): 5 Height (Inches): 3.00 Weight (Pounds): 185 General Appearance: no apparent distress Neck: normal alignment Cardiovascular: normal rate Respiratory/Chest: decreased breath sounds Abdomen: normal bowel sounds Pelvis: normal external exam Edema: 2+ Pedal (L), 2+ Pedal (R) Objective Current Medications Medications (Trade) Dose Ordered Sig/Shila Route PRN Reason Start Time Stop Time Status Last Admin Dose Admin Acetaminophen (Tylenol) 650 mg Q4H PRN ORAL Mild Pain/Temp > 100.5 10/05/18 18:00 11/02/18 17:59 Albuterol/ Ipratropium (Albuterol/ Ipratropium) 3 ml Q4H PRN HHN Shortness of Breath 10/03/18 17:30 10/08/18 17:29 Aspirin (Ecotrin) 81 mg DAILY ORAL 10/05/18 09:00 11/04/18 08:59 10/05/18 09:04 Atorvastatin Calcium (Lipitor) 40 mg BEDTIME ORAL 10/04/18 21:00 11/03/18 20:59 10/05/18 21:44 Clonidine HCl (Catapres Tab) 0.1 mg Q4H PRN ORAL sbp more than 160 10/03/18 17:30 11/02/18 17:29 Dextrose (Dextrose 50%) 25 ml Q30M PRN IV Hypoglycemia 10/03/18 17:30 11/02/18 17:29 Dextrose (Dextrose 50%) 50 ml Q30M PRN IV Hypoglycemia 10/03/18 17:30 11/02/18 17:29 Gabapentin (Neurontin) 600 mg THREE TIMES A DAY ORAL 10/03/18 18:00 11/02/18 17:59 10/05/18 17:34 Insulin Aspart (NovoLOG) BEFORE MEALS AND HS SUBQ 10/03/18 21:00 11/02/18 20:59 10/05/18 21:46 Lisinopril (Prinivil) 20 mg DAILY ORAL 10/05/18 09:00 11/04/18 08:59 10/05/18 09:04 Metformin HCl (Glucophage) 1,000 mg BID ORAL 10/05/18 09:30 11/04/18 09:29 10/05/18 17:34 Morphine Sulfate (Morphine Sulfate) 2 mg Q4H PRN IVP severe pain 7-10 10/03/18 17:30 10/10/18 17:29 Nitroglycerin (Ntg) 0.4 mg Q5M X 3 DOSES PRN SL Prn Chest Pain 10/03/18 17:30 11/02/18 17:29 Ondansetron HCl (Zofran) 4 mg Q6H PRN IVP Nausea & Vomiting 10/03/18 17:30 11/02/18 17:29 Polyethylene Glycol (Miralax) 17 gm HSPRN PRN ORAL Constipation 10/03/18 17:30 11/02/18 17:29 Regadenoson (Lexiscan) 0.4 mg ONCE PRN IV stress test 10/06/18 08:00 10/06/18 18:00 Temazepam (Restoril) 15 mg HSPRN PRN ORAL Insomnia 10/03/18 17:30 10/10/18 17:29 10/05/18 21:43 Jim Allred MD Oct 06, 2018 06:32
--- NOTE | 2018-10-06 07:27 | NUR ---
HAND-OFF: Report given to FUNMILAYO Hackett.
--- NOTE | 2018-10-06 07:51 | NUR ---
NURSE NOTES: Received report from FUNMILAYO Dumas. Patient in bed resting, no active s/s cardiac, respiratory distress noticed at this time. Patient on room air, SR with HR 76. Endorsed patient being NPO for stress test schedule for today 10/06/18, CT abd schedule for today. Reinforced patient nothing by mouth. Endorsed MD aware of level of D-dimer. IV on right AC 22G, asymptomatic, patent, intact. Bed in lowest position, side rails upx2, call light within reach. Will continue to monitor.
[2018-10-06 08:00] VITALS: BP 140/76
[2018-10-06] MEDS ORDERED: Lexiscan 0.4mg/5ml syringe IV PRN (08:00)
[2018-10-06 08:18] LABS: HEMATOCRIT 32.9 % (37.0-47.0); MEAN CORPUSCULAR VOLUME 85 FL (80-99); PLATELET COUNT 95 K/UL (150-450); RED BLOOD COUNT 3.87 M/UL (4.20-5.40); RED CELL DISTRIBUTION WIDTH 14.4 % (11.6-14.8); WHITE BLOOD COUNT 3.4 K/UL (4.8-10.8)
[2018-10-06 08:29] LABS: ANION GAP 5 mmol/L (5-15); BLOOD UREA NITROGEN 13 mg/dL (7-18); CALCIUM 9.6 MG/DL (8.5-10.1); CARBON DIOXIDE 30 MMOL/L (21-32); CHLORIDE 106 MMOL/L (98-107); CREATININE 0.5 MG/DL (0.55-1.30); POTASSIUM 3.9 MMOL/L (3.5-5.1); SODIUM 141 MMOL/L (136-145)
--- NOTE | 2018-10-06 09:53 | Cardiology Report ---
APPROVED REPORT EXAM: Two-dimensional and M-mode echocardiogram with Doppler and color Doppler. INDICATION Chest Pain M-Mode DIMENSIONS IVSd1.3 (0.7-1.1cm)Left Atrium (MM)4.2 (1.6-4.0cm) LVDd4.2 (3.5-5.6cm)Aortic Root2.9 (2.0-3.7cm) PWd1.7 (0.7-1.1cm)Aortic Cusp Exc.2.0 (1.5-2.0cm) LVDs2.6 (2.5-4.0cm) PWs2.8 cm Technically difficult study due to poor acoustic windows. Study quality precludes accurate assessment of regional wall motion. Normal left ventricular chamber size, systolic function and wall motion. Left ventricular ejection fraction estimated to be 55 %. Mild left ventricular hypertrophy. Anterior Echo-free space, may be due to pericardial fat or effusion. Mild bi-atrial enlargement. Right ventricular chamber size is within normal limits. Focal aortic valve sclerosis with adequate cusp excursion. Mildly thickened mitral valve leaflets with normal excursion. Mild mitral annulus and aortic root calcification. Pulmonic valve not well visualized. Normal tricuspid valve structure. IVC is normal in size with physiological collapse. A color flow and spectral Doppler study was performed and revealed: No aortic regurgitation. Mild mitral regurgitation. Mitral diastolic velocities suggest mild left ventricular diastolic dysfunction (Grade I). Mild tricuspid regurgitation. Tricuspid systolic velocities suggests peak right ventricular systolic pressure of 38 mmHg, consistent with mild pulmonary hypertension. Trace pulmonic regurgitation present.
[2018-10-06] MEDS: Lisinopril 20mg tab ORAL SCH (09:57)
[2018-10-06] MEDS: Aspirin EC 81mg tab ORAL SCH (09:57)
--- NOTE | 2018-10-06 10:12 | Diagnostic Imaging Report ---
Indication: Abdominal pain, history of hernia repair Technique: Spiral acquisitions obtained through the abdomen and pelvis. Patient ingested enteric contrast. No IV contrast utilized, per referring physician request.. Multiplanar reconstructions were generated. Total dose length product 1070.89 mGycm. CTDIvol(s) 18.84 mGy. Dose reduction achieved using automated exposure control Comparison: None Findings: There is evidence of anterior abdominal wall mesh repair. There is some inflammation of the abdominal wall fat superficial to the mesh. There is also some thickening and inflammation of the rectus abdominis tendon, and inflammatory changes are seen along the course of the midline incision. No definite discrete fluid collection demonstrated, however. No evidence of diverticulosis or diverticulitis. The appendix is not definitely visualized, but no findings to suggest acute appendicitis are evident. Unusually prominent lipomatous ileocecal valve. Contrast is seen throughout the entirety of the small bowel and reaches the colon. No small bowel distention or small bowel wall thickening is evident. No free or loculated intraperitoneal gas or fluid. The distal esophagus, stomach, are unremarkable. There is a duodenal diverticulum. Very slight infiltration of the mesenteric root fat caudad to the pancreas is noted. Lack of IV contrast limits assessment of the solid organs. The liver is atrophic with irregular contour. No definite focal abnormality. Fairly extensive varices are seen in the perigastric region in the lesser sac. The spleen is enlarged, measuring 15.5 cm long axis dimension. No definite ascites fluid. No definite gallstones are demonstrated, but the gallbladder demonstrates some wall thickening as well as infiltration of the pericholecystic fat. It is not particularly distended. No biliary ductal dilatation is evident. The pancreas, adrenals, kidneys are all unremarkable. No retroperitoneal or mesenteric mass or adenopathy. No pelvic mass or adenopathy. Uterus and adnexal structures appear unremarkable. The bones demonstrate degenerative spondylosis changes. The included lung bases are grossly clear, although somewhat obscured by respiratory motion artifact. Impression: Evidence of prior anterior abdominal wall hernia repair with mesh in place. There are some adjacent inflammatory changes, not unexpected if surgery was fairly recent. No evidence of fluid collection or other significant complication Evidence of hepatic cirrhosis. Evidence of portal hypertension, with fairly extensive perigastric varices and splenomegaly Gallbladder wall thickening and pericholecystic inflammation. Probably secondary to the above-mentioned portal hypertension. Acalculous acute cholecystitis or acute cholecystitis due to occult stones less likely but also possible, and consideration should be given to hepatobiliary nuclear scan if there is high clinical suspicion Mild infiltration of the mesenteric root caudad to the pancreas. Probably congestion secondary to portal hypertension but inflammatory process also possible Other findings as noted, including lipomatous hypertrophy of the ileocecal valve, duodenal diverticulum, degenerative spondylosis The CT scanner at [facility] is accredited by the [employer] and the scans are performed using protocols designed to limit radiation exposure to as low as reasonably achievable to attain images of sufficient resolution adequate for diagnostic evaluation.
--- NOTE | 2018-10-06 10:21 | GI Progress Note ---
Assessment/Plan Problems: (1) Diabetes mellitus ICD Codes: E11.9 - Type 2 diabetes mellitus without complications SNOMED: 43186525 (2) Pancytopenia ICD Codes: D61.818 - Other pancytopenia SNOMED: 037644696 (3) Anemia ICD Codes: D64.9 - Anemia, unspecified SNOMED: 407717757 (4) Surgical wound dehiscence ICD Codes: T81.31XA - Disruption of external operation (surgical) wound, not elsewhere classified, initial encounter SNOMED: 94162109 (5) Surgical wound, non healing ICD Codes: T81.89XA - Other complications of procedures, not elsewhere classified, initial encounter SNOMED: 020579020 Status: unchanged Status Narrative Discussed with Dr. Jarvis Assessment/Plan Assessment - s/p ventral hernia repair - Failure of wound closure -Abdominal pelvis CT reviewed. Some inflammation of the abdominal wall fat superficial to the wall mesh. No evidence of diverticulosis or diverticulitis. No small bowel distention of small bowel wall thickening. Evidence of hepatic cirrhosis. Evidence of portal hypertension, with fairly extensive perigastric varices and splenomegaly Gallbladder wall thickening and pericholecystic inflammation. Probably secondary to the above-mentioned portal hypertension. Recommendations - po diet - wound care - surgical f/u - will need EGD at some point to evaluate for EV given recent CT. - OB stool r/o GI bleed - prn transfusions - ppi - follow labs The patient was seen and examined at bedside and all new and available data was reviewed in the patients chart. I agree with the above findings, impression and plan. (Patient seen earlier today. Signature stamp does not reflect patient encounter time.). - Star Jarvis MD Subjective Gastrointestinal/Abdominal: Reports: no symptoms Objective Last 24 Hour Vital Signs Date Time Temp Pulse Resp B/P (MAP) Pulse Ox O2 Delivery O2 Flow Rate FiO2 10/06/18 09:57 140/76 10/06/18 08:00 98.3 74 18 140/76 (97) 96 10/06/18 04:00 97.4 76 18 131/61 (84) 98 10/06/18 04:00 68 10/06/18 00:00 98.1 76 18 127/64 (85) 98 10/05/18 21:00 Room Air 10/05/18 20:00 76 10/05/18 20:00 97.3 76 18 137/52 (80) 97 10/05/18 16:00 77 10/05/18 16:00 97.9 80 18 143/68 (93) 97 10/05/18 12:00 77 10/05/18 12:00 98.5 79 20 146/65 (92) 99 Intake and Output 10/05/18 10/06/18 19:00 07:00 Intake Total 360 ml Balance 360 ml Intake Oral 360 ml # Voids 3 Laboratory Tests Test 10/05/18 11:27 10/05/18 11:30 10/06/18 06:57 Prothrombin Time 10.8 SEC (9.30-11.50) Prothromb Time International Ratio 1.0 (0.9-1.1) Hepatitis A IgM Antibody Pending Hepatitis B Surface Antigen Pending Hepatitis B Core IgM Antibody Pending Hepatitis C Antibody Pending White Blood Count 3.4 K/UL (4.8-10.8) L Red Blood Count 3.87 M/UL (4.20-5.40) L Hemoglobin 11.0 G/DL (12.0-16.0) L Hematocrit 32.9 % (37.0-47.0) L Mean Corpuscular Volume 85 FL (80-99) Mean Corpuscular Hemoglobin 28.5 PG (27.0-31.0) Mean Corpuscular Hemoglobin Concent 33.5 G/DL (32.0-36.0) Red Cell Distribution Width 14.4 % (11.6-14.8) Platelet Count 95 K/UL (150-450) L Mean Platelet Volume 6.3 FL (6.5-10.1) L Neutrophils (%) (Auto) % (45.0-75.0) Lymphocytes (%) (Auto) % (20.0-45.0) Monocytes (%) (Auto) % (1.0-10.0) Eosinophils (%) (Auto) % (0.0-3.0) Basophils (%) (Auto) % (0.0-2.0) Differential Total Cells Counted 100 Neutrophils % (Manual) 66 % (45-75) Lymphocytes % (Manual) 27 % (20-45) Monocytes % (Manual) 5 % (1-10) Eosinophils % (Manual) 1 % (0-3) Basophils % (Manual) 1 % (0-2) Band Neutrophils 0 % (0-8) Platelet Estimate Decreased L Platelet Morphology Normal Hypochromasia 1+ Anisocytosis 1+ Sodium Level 141 MMOL/L (136-145) Potassium Level 3.9 MMOL/L (3.5-5.1) Chloride Level 106 MMOL/L (98-107) Carbon Dioxide Level 30 MMOL/L (21-32) Anion Gap 5 mmol/L (5-15) Blood Urea Nitrogen 13 mg/dL (7-18) Creatinine 0.5 MG/DL (0.55-1.30) L Estimat Glomerular Filtration Rate > 60 mL/min (>60) Glucose Level 118 MG/DL (74-106) H Calcium Level 9.6 MG/DL (8.5-10.1) Height (Feet): 5 Height (Inches): 3.00 Weight (Pounds): 185 General Appearance: WD/WN, no apparent distress, alert Cardiovascular: normal rate Respiratory/Chest: normal breath sounds, no respiratory distress Abdominal Exam: normal bowel sounds, non tender, soft, other - Abdomen is soft , nontender, nondistended. Dressing noted Extremities: normal range of motion, non-tender Brai Estrada NP Oct 06, 2018 10:21
[2018-10-06] MEDS: metFORMIN 500mg tab ORAL SCH ×2 (10:36→17:38)
[2018-10-06 12:00] VITALS: BP 142/77
--- NOTE | 2018-10-06 12:25 | General Progress Note ---
Assessment/Plan Problem List: (1) UTI (urinary tract infection) ICD Codes: N39.0 - Urinary tract infection, site not specified SNOMED: 33836808 (2) Pancytopenia ICD Codes: D61.818 - Other pancytopenia SNOMED: 019380661 (3) HTN (hypertension) ICD Codes: I10 - Essential (primary) hypertension SNOMED: 51948723 (4) Anemia ICD Codes: D64.9 - Anemia, unspecified SNOMED: 606128745 (5) Chest tightness ICD Codes: R07.89 - Other chest pain SNOMED: 32457268 (6) CHF (congestive heart failure) ICD Codes: I50.9 - Heart failure, unspecified SNOMED: 42350637 (7) Episode of generalized weakness ICD Codes: R53.1 - Weakness SNOMED: 37244646 Status: unchanged Assessment/Plan: pt diet abx cardio gi heme f/u cbc bmp am pending wound sx Subjective Constitutional: Reports: weakness Allergies: Coded Allergies: PENICILLINS (Verified Allergy, Severe, anaphalaxtic, 10/03/18) All Systems: reviewed and negative except above Subjective sl dizzy Objective Last 24 Hour Vital Signs Date Time Temp Pulse Resp B/P (MAP) Pulse Ox O2 Delivery O2 Flow Rate FiO2 10/06/18 09:57 140/76 10/06/18 09:00 Room Air 10/06/18 08:00 98.3 74 18 140/76 (97) 96 10/06/18 08:00 79 10/06/18 04:00 97.4 76 18 131/61 (84) 98 10/06/18 04:00 68 10/06/18 00:00 98.1 76 18 127/64 (85) 98 10/05/18 21:00 Room Air 10/05/18 20:00 76 10/05/18 20:00 97.3 76 18 137/52 (80) 97 10/05/18 16:00 77 10/05/18 16:00 97.9 80 18 143/68 (93) 97 Intake and Output 10/05/18 10/06/18 19:00 07:00 Intake Total 360 ml Balance 360 ml Intake Oral 360 ml # Voids 3 Laboratory Tests 10/06/18 06:57: White Blood Count 3.4L, Red Blood Count 3.87L, Hemoglobin 11.0L, Hematocrit 32.9L, Mean Corpuscular Volume 85, Mean Corpuscular Hemoglobin 28.5, Mean Corpuscular Hemoglobin Concent 33.5, Red Cell Distribution Width 14.4, Platelet Count 95L, Mean Platelet Volume 6.3L, Neutrophils (%) (Auto) , Lymphocytes (%) ( Auto) , Monocytes (%) (Auto) , Eosinophils (%) (Auto) , Basophils (%) (Auto) , Differential Total Cells Counted 100, Neutrophils % (Manual) 66, Lymphocytes % ( Manual) 27, Monocytes % (Manual) 5, Eosinophils % (Manual) 1, Basophils % ( Manual) 1, Band Neutrophils 0, Platelet Estimate DecreasedL, Platelet Morphology Normal, Hypochromasia 1+, Anisocytosis 1+, Sodium Level 141, Potassium Level 3.9, Chloride Level 106, Carbon Dioxide Level 30, Anion Gap 5, Blood Urea Nitrogen 13, Creatinine 0.5L, Estimat Glomerular Filtration Rate > 60 , Glucose Level 118H, Calcium Level 9.6 Height (Feet): 5 Height (Inches): 3.00 Weight (Pounds): 185 General Appearance: lethargic EENT: normal ENT inspection Neck: normal alignment Cardiovascular: normal peripheral pulses, normal rate, regular rhythm Respiratory/Chest: chest wall non-tender, lungs clear, normal breath sounds Abdomen: normal bowel sounds, non tender, soft Extremities: normal inspection Edema: no edema noted Arm (L), no edema noted Arm (R), no edema noted Leg (L), no edema noted Leg (R), no edema noted Pedal (L), no edema noted Pedal (R), no edema noted Generalized Neurologic: motor weakness Skin: normal pigmentation, warm/dry Donovan Francois DO Oct 06, 2018 12:25
--- NOTE | 2018-10-06 12:25 | Infectious Diseases Prog Note ---
Assessment/Plan Assessment/Plan The patient is a 68-year-old female who is afebrile, normal white blood cell, and scant cough appeared to be due to CHF, pulmonary congestion, doubt pneumonia. Cough No Fever No leukocytosis No SOB Abdominal hernia S/p Repair No sign of active infection. CT abd/pel - Evidence of prior anterior abdominal wall hernia repair with mesh in place. There are some adjacent inflammatory changes, not unexpected if surgery was fairly recent. No evidence of fluid collection or other significant complication Evidence of hepatic cirrhosis. Evidence of portal hypertension, with fairly extensive perigastric varices and splenomegaly Gallbladder wall thickening and pericholecystic inflammation. Probably secondary to the above-mentioned portal hypertension. Acalculous acute cholecystitis or acute cholecystitis due to occult stones less likely but also possible, and consideration should be given to hepatobiliary nuclear scan if there is high clinical suspicion Mild infiltration of the mesenteric root caudad to the pancreas. Probably congestion secondary to portal hypertension but inflammatory process also possible Other findings as noted, including lipomatous hypertrophy of the ileocecal valve, duodenal diverticulum, degenerative spondylosis PLAN: - Continue to monitor the patient off of antibiotics. - Monitor CBC and BMP. - Monitor chest x-ray. Subjective Allergies: Coded Allergies: PENICILLINS (Verified Allergy, Severe, anaphalaxtic, 10/03/18) Subjective Afebrile No leukocytosis Currently getting a procedure done Objective Vital Signs Last 24 Hour Vital Signs Date Time Temp Pulse Resp B/P (MAP) Pulse Ox O2 Delivery O2 Flow Rate FiO2 10/06/18 09:57 140/76 10/06/18 09:00 Room Air 10/06/18 08:00 98.3 74 18 140/76 (97) 96 10/06/18 08:00 79 10/06/18 04:00 97.4 76 18 131/61 (84) 98 10/06/18 04:00 68 10/06/18 00:00 98.1 76 18 127/64 (85) 98 10/05/18 21:00 Room Air 10/05/18 20:00 76 10/05/18 20:00 97.3 76 18 137/52 (80) 97 10/05/18 16:00 77 10/05/18 16:00 97.9 80 18 143/68 (93) 97 Height (Feet): 5 Height (Inches): 3.00 Weight (Pounds): 185 Objective Currently getting a procedure done Laboratory Tests Test 10/06/18 06:57 White Blood Count 3.4 K/UL (4.8-10.8) L Red Blood Count 3.87 M/UL (4.20-5.40) L Hemoglobin 11.0 G/DL (12.0-16.0) L Hematocrit 32.9 % (37.0-47.0) L Mean Corpuscular Volume 85 FL (80-99) Mean Corpuscular Hemoglobin 28.5 PG (27.0-31.0) Mean Corpuscular Hemoglobin Concent 33.5 G/DL (32.0-36.0) Red Cell Distribution Width 14.4 % (11.6-14.8) Platelet Count 95 K/UL (150-450) L Mean Platelet Volume 6.3 FL (6.5-10.1) L Neutrophils (%) (Auto) % (45.0-75.0) Lymphocytes (%) (Auto) % (20.0-45.0) Monocytes (%) (Auto) % (1.0-10.0) Eosinophils (%) (Auto) % (0.0-3.0) Basophils (%) (Auto) % (0.0-2.0) Differential Total Cells Counted 100 Neutrophils % (Manual) 66 % (45-75) Lymphocytes % (Manual) 27 % (20-45) Monocytes % (Manual) 5 % (1-10) Eosinophils % (Manual) 1 % (0-3) Basophils % (Manual) 1 % (0-2) Band Neutrophils 0 % (0-8) Platelet Estimate Decreased L Platelet Morphology Normal Hypochromasia 1+ Anisocytosis 1+ Sodium Level 141 MMOL/L (136-145) Potassium Level 3.9 MMOL/L (3.5-5.1) Chloride Level 106 MMOL/L (98-107) Carbon Dioxide Level 30 MMOL/L (21-32) Anion Gap 5 mmol/L (5-15) Blood Urea Nitrogen 13 mg/dL (7-18) Creatinine 0.5 MG/DL (0.55-1.30) L Estimat Glomerular Filtration Rate > 60 mL/min (>60) Glucose Level 118 MG/DL (74-106) H Calcium Level 9.6 MG/DL (8.5-10.1) Current Medications Medications (Trade) Dose Ordered Sig/Shila Route PRN Reason Start Time Stop Time Status Last Admin Dose Admin Acetaminophen (Tylenol) 650 mg Q4H PRN ORAL Mild Pain/Temp > 100.5 10/05/18 18:00 11/02/18 17:59 Albuterol/ Ipratropium (Albuterol/ Ipratropium) 3 ml Q4H PRN HHN Shortness of Breath 10/03/18 17:30 10/08/18 17:29 Aspirin (Ecotrin) 81 mg DAILY ORAL 10/05/18 09:00 11/04/18 08:59 10/06/18 09:57 Atorvastatin Calcium (Lipitor) 40 mg BEDTIME ORAL 10/04/18 21:00 11/03/18 20:59 10/05/18 21:44 Clonidine HCl (Catapres Tab) 0.1 mg Q4H PRN ORAL sbp more than 160 10/03/18 17:30 11/02/18 17:29 Dextrose (Dextrose 50%) 25 ml Q30M PRN IV Hypoglycemia 10/03/18 17:30 11/02/18 17:29 Dextrose (Dextrose 50%) 50 ml Q30M PRN IV Hypoglycemia 10/03/18 17:30 11/02/18 17:29 Gabapentin (Neurontin) 600 mg THREE TIMES A DAY ORAL 10/03/18 18:00 11/02/18 17:59 10/06/18 09:57 Insulin Aspart (NovoLOG) BEFORE MEALS AND HS SUBQ 10/03/18 21:00 11/02/18 20:59 10/05/18 21:46 Iron Sucrose 100 mg/Sodium Chloride 60 ml @ 240 mls/hr BEDTIME IV 10/06/18 21:00 10/10/18 21:14 Lisinopril (Prinivil) 20 mg DAILY ORAL 10/05/18 09:00 11/04/18 08:59 10/06/18 09:57 Metformin HCl (Glucophage) 1,000 mg BID ORAL 10/05/18 09:30 11/04/18 09:29 10/06/18 10:36 Morphine Sulfate (Morphine Sulfate) 2 mg Q4H PRN IVP severe pain 7-10 10/03/18 17:30 10/10/18 17:29 Nitroglycerin (Ntg) 0.4 mg Q5M X 3 DOSES PRN SL Prn Chest Pain 10/03/18 17:30 11/02/18 17:29 Ondansetron HCl (Zofran) 4 mg Q6H PRN IVP Nausea & Vomiting 10/03/18 17:30 11/02/18 17:29 Polyethylene Glycol (Miralax) 17 gm HSPRN PRN ORAL Constipation 10/03/18 17:30 11/02/18 17:29 Regadenoson (Lexiscan) 0.4 mg ONCE PRN IV stress test 10/06/18 08:00 10/06/18 18:00 10/06/18 11:44 Temazepam (Restoril) 15 mg HSPRN PRN ORAL Insomnia 10/03/18 17:30 10/10/18 17:29 10/05/18 21:43 Luiz Briecno MD Oct 06, 2018 12:25
--- NOTE | 2018-10-06 13:16 | Pulmonology Progress Note ---
Assessment/Plan Problems: (1) Generalized weakness (2) Diabetes mellitus (3) HTN (hypertension) (4) Anemia Assessment/Plan Echo reviewed stress study pending monitor BP sliding scale diabetic diet Subjective ROS Limited/Unobtainable: No Constitutional: Reports: no symptoms Respiratory: Reports: no symptoms Allergies: Coded Allergies: PENICILLINS (Verified Allergy, Severe, anaphalaxtic, 10/03/18) Objective Last 24 Hour Vital Signs Date Time Temp Pulse Resp B/P (MAP) Pulse Ox O2 Delivery O2 Flow Rate FiO2 10/06/18 12:00 96.2 79 18 142/77 (98) 95 10/06/18 09:57 140/76 10/06/18 09:00 Room Air 10/06/18 08:00 98.3 74 18 140/76 (97) 96 10/06/18 08:00 79 10/06/18 04:00 97.4 76 18 131/61 (84) 98 10/06/18 04:00 68 10/06/18 00:00 98.1 76 18 127/64 (85) 98 10/05/18 21:00 Room Air 10/05/18 20:00 76 10/05/18 20:00 97.3 76 18 137/52 (80) 97 10/05/18 16:00 77 10/05/18 16:00 97.9 80 18 143/68 (93) 97 Intake and Output 10/05/18 10/06/18 19:00 07:00 Intake Total 360 ml Balance 360 ml Intake Oral 360 ml # Voids 3 General Appearance: WD/WN, no acute distress HEENT: normocephalic, atraumatic Respiratory/Chest: chest wall non-tender, lungs clear Breasts: no masses Cardiovascular: regular rhythm Abdomen: normal bowel sounds, soft, non tender Laboratory Tests 10/06/18 06:57: White Blood Count 3.4L, Red Blood Count 3.87L, Hemoglobin 11.0L, Hematocrit 32.9L, Mean Corpuscular Volume 85, Mean Corpuscular Hemoglobin 28.5, Mean Corpuscular Hemoglobin Concent 33.5, Red Cell Distribution Width 14.4, Platelet Count 95L, Mean Platelet Volume 6.3L, Neutrophils (%) (Auto) , Lymphocytes (%) ( Auto) , Monocytes (%) (Auto) , Eosinophils (%) (Auto) , Basophils (%) (Auto) , Differential Total Cells Counted 100, Neutrophils % (Manual) 66, Lymphocytes % ( Manual) 27, Monocytes % (Manual) 5, Eosinophils % (Manual) 1, Basophils % ( Manual) 1, Band Neutrophils 0, Platelet Estimate DecreasedL, Platelet Morphology Normal, Hypochromasia 1+, Anisocytosis 1+, Sodium Level 141, Potassium Level 3.9, Chloride Level 106, Carbon Dioxide Level 30, Anion Gap 5, Blood Urea Nitrogen 13, Creatinine 0.5L, Estimat Glomerular Filtration Rate > 60 , Glucose Level 118H, Calcium Level 9.6 Current Medications Medications (Trade) Dose Ordered Sig/Shila Route PRN Reason Start Time Stop Time Status Last Admin Dose Admin Acetaminophen (Tylenol) 650 mg Q4H PRN ORAL Mild Pain/Temp > 100.5 10/05/18 18:00 11/02/18 17:59 Albuterol/ Ipratropium (Albuterol/ Ipratropium) 3 ml Q4H PRN HHN Shortness of Breath 10/03/18 17:30 10/08/18 17:29 Aspirin (Ecotrin) 81 mg DAILY ORAL 10/05/18 09:00 11/04/18 08:59 10/06/18 09:57 Atorvastatin Calcium (Lipitor) 40 mg BEDTIME ORAL 10/04/18 21:00 11/03/18 20:59 10/05/18 21:44 Clonidine HCl (Catapres Tab) 0.1 mg Q4H PRN ORAL sbp more than 160 10/03/18 17:30 11/02/18 17:29 Dextrose (Dextrose 50%) 25 ml Q30M PRN IV Hypoglycemia 10/03/18 17:30 11/02/18 17:29 Dextrose (Dextrose 50%) 50 ml Q30M PRN IV Hypoglycemia 10/03/18 17:30 11/02/18 17:29 Gabapentin (Neurontin) 600 mg THREE TIMES A DAY ORAL 10/03/18 18:00 11/02/18 17:59 10/06/18 12:43 Insulin Aspart (NovoLOG) BEFORE MEALS AND HS SUBQ 10/03/18 21:00 11/02/18 20:59 10/05/18 21:46 Iron Sucrose 100 mg/Sodium Chloride 60 ml @ 240 mls/hr BEDTIME IV 10/06/18 21:00 10/10/18 21:14 Lisinopril (Prinivil) 20 mg DAILY ORAL 10/05/18 09:00 11/04/18 08:59 10/06/18 09:57 Metformin HCl (Glucophage) 1,000 mg BID ORAL 10/05/18 09:30 11/04/18 09:29 10/06/18 10:36 Morphine Sulfate (Morphine Sulfate) 2 mg Q4H PRN IVP severe pain 7-10 10/03/18 17:30 10/10/18 17:29 Nitroglycerin (Ntg) 0.4 mg Q5M X 3 DOSES PRN SL Prn Chest Pain 10/03/18 17:30 11/02/18 17:29 Ondansetron HCl (Zofran) 4 mg Q6H PRN IVP Nausea & Vomiting 10/03/18 17:30 11/02/18 17:29 Polyethylene Glycol (Miralax) 17 gm HSPRN PRN ORAL Constipation 10/03/18 17:30 11/02/18 17:29 Regadenoson (Lexiscan) 0.4 mg ONCE PRN IV stress test 10/06/18 08:00 10/06/18 18:00 10/06/18 11:44 Temazepam (Restoril) 15 mg HSPRN PRN ORAL Insomnia 10/03/18 17:30 10/10/18 17:29 10/05/18 21:43 Gabby Mayer MD Oct 06, 2018 13:16
--- NOTE | 2018-10-06 13:36 | NUR ---
Myocardial Perfusion Scan complete.
--- NOTE | 2018-10-06 14:39 | NUR ---
NURSE NOTES: Dr. Miles at the nursing station, per Dr. Miles, dressing need to be changed, clean with normal saline, apply therahoney, apply Optifoam. Dressing changed as MD ordered. No draining, patient denies pain at this time, edge of the wound erythema.
--- NOTE | 2018-10-06 15:06 | Surgery Progress Note ---
Surgery Progress Note Subjective Additional Comments CT noted. exam stable. otherwise unchanged. labs noted. Objective Last 24 Hour Vital Signs Date Time Temp Pulse Resp B/P (MAP) Pulse Ox O2 Delivery O2 Flow Rate FiO2 10/06/18 12:00 105 10/06/18 12:00 96.2 79 18 142/77 (98) 95 10/06/18 09:57 140/76 10/06/18 09:00 Room Air 10/06/18 08:00 98.3 74 18 140/76 (97) 96 10/06/18 08:00 79 10/06/18 04:00 97.4 76 18 131/61 (84) 98 10/06/18 04:00 68 10/06/18 00:00 98.1 76 18 127/64 (85) 98 10/05/18 21:00 Room Air 10/05/18 20:00 76 10/05/18 20:00 97.3 76 18 137/52 (80) 97 10/05/18 16:00 77 10/05/18 16:00 97.9 80 18 143/68 (93) 97 I&O Intake and Output 10/05/18 10/06/18 19:00 07:00 Intake Total 360 ml Balance 360 ml Intake Oral 360 ml # Voids 3 Dressing: dry Wound: other Drains: other Cardiovascular: RSR Respiratory: decreased breath sounds Abdomen: soft, non-tender, present bowel sounds, other, non-distended Extremities: no edema, no tenderness, no cyanosis Laboratory Tests Test 10/06/18 06:57 White Blood Count 3.4 K/UL (4.8-10.8) L Red Blood Count 3.87 M/UL (4.20-5.40) L Hemoglobin 11.0 G/DL (12.0-16.0) L Hematocrit 32.9 % (37.0-47.0) L Mean Corpuscular Volume 85 FL (80-99) Mean Corpuscular Hemoglobin 28.5 PG (27.0-31.0) Mean Corpuscular Hemoglobin Concent 33.5 G/DL (32.0-36.0) Red Cell Distribution Width 14.4 % (11.6-14.8) Platelet Count 95 K/UL (150-450) L Mean Platelet Volume 6.3 FL (6.5-10.1) L Neutrophils (%) (Auto) % (45.0-75.0) Lymphocytes (%) (Auto) % (20.0-45.0) Monocytes (%) (Auto) % (1.0-10.0) Eosinophils (%) (Auto) % (0.0-3.0) Basophils (%) (Auto) % (0.0-2.0) Differential Total Cells Counted 100 Neutrophils % (Manual) 66 % (45-75) Lymphocytes % (Manual) 27 % (20-45) Monocytes % (Manual) 5 % (1-10) Eosinophils % (Manual) 1 % (0-3) Basophils % (Manual) 1 % (0-2) Band Neutrophils 0 % (0-8) Platelet Estimate Decreased L Platelet Morphology Normal Hypochromasia 1+ Anisocytosis 1+ Sodium Level 141 MMOL/L (136-145) Potassium Level 3.9 MMOL/L (3.5-5.1) Chloride Level 106 MMOL/L (98-107) Carbon Dioxide Level 30 MMOL/L (21-32) Anion Gap 5 mmol/L (5-15) Blood Urea Nitrogen 13 mg/dL (7-18) Creatinine 0.5 MG/DL (0.55-1.30) L Estimat Glomerular Filtration Rate > 60 mL/min (>60) Glucose Level 118 MG/DL (74-106) H Calcium Level 9.6 MG/DL (8.5-10.1) Plan Problems: (1) Surgical wound dehiscence Assessment & Plan: This is a 68-year-old female who was recently gone to [facility] approximately 20 days ago for ventral hernia repair. He is unaware of the exact repair that was performed and if mesh was or was not used. Patient now presents with shortness of breath and discomfort. On admission noted to have midline wound dehiscence with sutures present. On evaluation patient has a 3 cm x 3 cm dehisced midline wound with unknown depth. Difficult to discern if there is underlying mesh or not. Ultimately 3 nonabsorbable sutures are identified within the subcutis tissue and unsure if these are related to mesh placement of a possible overlay or not. Minimal erythema nontender no drainage. Patient is a diabetic. Patient denies any complaints from the wound. Given recent surgical intervention in [facility] there is significant concern of potential underlying wound pathology. Recommend CT abdomen and pelvis to evaluate for potential mesh placement seroma or bowel or other of normality within the repaired hernia. CT results Impression: Evidence of prior anterior abdominal wall hernia repair with mesh in place. There are some adjacent inflammatory changes, not unexpected if surgery was fairly recent. No evidence of fluid collection or other significant complication Evidence of hepatic cirrhosis. Evidence of portal hypertension, with fairly extensive perigastric varices and splenomegaly Gallbladder wall thickening and pericholecystic inflammation. Probably secondary to the above-mentioned portal hypertension. Acalculous acute cholecystitis or acute cholecystitis due to occult stones less likely but also possible, and consideration should be given to hepatobiliary nuclear scan if there is high clinical suspicion Mild infiltration of the mesenteric root caudad to the pancreas. Probably congestion secondary to portal hypertension but inflammatory process also possible Other findings as noted, including lipomatous hypertrophy of the ileocecal valve , duodenal diverticulum, degenerative spondylosis Okay for diet We will continue to monitor Local wound care with plans for outpatient wound care upon discharge no acute surgical intervention planned. Thank you for allowing me to participate in patient's care (2) Surgical wound, non healing (3) CHF (congestive heart failure) (4) Chest tightness (5) Episode of generalized weakness Marlon Miles Oct 06, 2018 15:05
[2018-10-06 16:00] VITALS: BP 144/65
--- NOTE | 2018-10-06 17:09 | Diagnostic Imaging Report ---
Indications: 68-year-old female with chest pain Technique: Single day single isotope protocol utilized. Initially, resting images obtained using IV administration 10.8 millicuries 99M technetium Myoview. Subsequently, patient underwent lexiscan stress testing. See cardiology report for details. During Lexiscan infusion, IV administration 30.9 mCi 99 M technetium Myoview. SPECT and planar images obtained. SPECT images gated to 8 phases of the cardiac cycle were also obtained, and reformatted into cine images for evaluation of ejection fraction. Comparison: none Findings: Per cardiology report, patient experienced chest during infusion. Per cardiology report, resting EKG demonstrates normal sinus rhythm. Presence or absence of ST changes during infusion is not recorded on the cardiology report. Imaging demonstrates normal post stress perfusion. No fixed nor reversible perfusion defects are demonstrated. Normal cardiac chamber size. Calculated post stress ejection fraction 74%. No focal wall motion abnormality Impression: Ischemic clinical response to pharmacologic stress, per cardiology report Nonischemic electrocardiographic response to pharmacologic stress, per cardiology report No imaging findings to suggest ischemia, at level of stress achieved. Calculated post stress ejection fraction greater than 70%
--- NOTE | 2018-10-06 17:31 | Diagnostic Imaging Report ---
Indication: Abdominal mass, abdominal pain, liver failure Technique: Nava-scale and duplex images of the upper abdomen were obtained Comparison: No comparison ultrasounds. Reference made to CT scan 10/05/2018 Findings: Exam is limited due to patient body habitus and overlying bowel gas Gallbladder demonstrates apparent wall thickening, gallbladder wall measuring up to 7 mm in thickness. No gallstones are demonstrated. There is some comet tail artifact within the gallbladder wall. Sonographic Harris's sign is negative. Common bile duct measures 5 mm in diameter. No intrahepatic biliary ductal dilatation. Liver demonstrates normal echogenicity, no focal abnormality. Surface and morphologic abnormality described on recent CT scan is less apparent on ultrasound Portal vein and hepatic veins are patent. Pancreas is incompletely visualized due to overlying bowel gas, visualized portions are unremarkable. The spleen is enlarged, measuring 15.8 cm long axis dimension. Left kidney measures 11.3 cm in length. Right kidney measures 10.2 cm length. Both kidneys demonstrate normal echogenicity. There is no hydronephrosis. 8 kidney demonstrates an 11 mm cyst. . Abdominal aorta is obscured by bowel gas as well as bandages from recent hernia repair . Impression: Negative for gallstones or dilated ducts Gallbladder wall thickening, probably secondary to hepatocellular disease. Less likely acute acalculous cholecystitis. Consider hepatobiliary nuclear scanning if the latter is of clinical concern Comet tail artifact in the gallbladder wall may indicate adenomyosis Splenomegaly, also described on recent CT scan Incidental finding of right renal cyst Note inability to visualize the abdominal aorta and portions of the pancreas
--- NOTE | 2018-10-06 19:00 | NUR ---
NURSE NOTES: Dr. Mayer and Dr. Castillo made aware of result of stress test. Per Dr. Mayer, transfer patient to [facility]-surg if cleared by cardiology. Per Dr. Castillo, okay to transfer, Dr. Mayer made aware patient cleared from cardiology stand point.
--- NOTE | 2018-10-06 19:38 | NUR ---
HAND-OFF: Report given to FUNMILAYO Dumas.
--- NOTE | 2018-10-06 19:40 | NUR ---
NURSE NOTES: received pt from FUNMILAYO Hackett. pt AOx4, no acute distress noted. family at bedside. pt updated on plan of care. verbalized understanding. bed locked and lowest position, side rail upx2, call light and belonging within reach. will continue to monitor for any change in condition.
[2018-10-06 20:00] VITALS: BP 144/74
--- NOTE | 2018-10-06 20:37 | NUR ---
NURSE NOTES: order to transfer Pt to [facility] floor, pt c/o chest discomfort and sometimes chest pain. reached Dr Wooten, Dr giron pt to stay in tele floor. will continue to monitor for chest pain.
[2018-10-06] MEDS: Iron Sucrose 100 MG in NS 55 ML IV SCH (21:28)
[2018-10-06] MEDS: Atorvastatin 20mg tab ORAL SCH (21:28)
[2018-10-07] VITALS: BP 161/73
--- NOTE | 2018-10-07 00:15 | NUR ---
NURSE NOTES: BP 161/73, PRN med for BP was administered. will continue to monitor BP.
--- NOTE | 2018-10-07 01:00 | NUR ---
NURSE NOTES: BP 156/73. will continue to monitor. BP.
[2018-10-07 04:00] VITALS: BP 118/64
--- NOTE | 2018-10-07 04:00 | NUR ---
NURSE NOTES: pt sleeping no change in condition. will continue to monitor for any change in condition.
--- NOTE | 2018-10-07 04:34 | Consultation ---
Consult Note Consult Note History of Present Illness This is a 68 year old female patient presented to ED for complaints of lightheadedness and weakness.She also complains of pain in her left arm. She denies chest pain or shortness of breath. She denies headache or neck pain. She denies abdominal pain. She denies nausea or vomiting. She denies fever chills. She has no other complaints. s/p ventral hernia repair.We were consulted for thrombocytopenia and leukopenia evaluation. Patient History Past Medical History: DM, HTN, HLP, questionable liver failure. Social History: Denies: smoking, alcohol use, drug use Family History: Non contributory. Allergies: Coded Allergies: No Known Allergies Review of Systems All Other Systems: negative except mentioned in HPI Physical Exam General Appearance: no apparent distress, alert, Head: normocephalic, atraumatic Eyes: bilateral eye normal inspection, bilateral eye PERRL ENT: hearing grossly normal, normal pharynx, no angioedema, normal voice Neck: full range of motion, supple/symm/no masses Respiratory: lungs clear Cardiovascular: regular rate, rhythm, no edema Gastrointestinal: normal bowel sounds, non tender, soft, non-distended, no guarding, no rebound Musculoskeletal: back normal, gait/station normal, normal range of motion, non- tender, swelling - +Swelling of L. hand through upper arm. Neurologic: alert, oriented x3, responsive, motor strength/tone normal, sensory intact, speech normal Psychiatric: judgement/insight normal, memory normal, mood/affect normal, no suicidal/homicidal ideation Skin: normal color, no rash, warm/dry, Assessment/Plan ASSESSMENT AND REC'S # Iron deficiency anemia, unspecified rule out gi bleed --> will/have begun on iv iron and continue x 5 doses --> occult blood is pending. If it is +, then consider Gi evaluation with egd/ colo, appreciate recs --> hgb goal is >7, transfuse as needed --> trend CBC daily # Leukopenia -- multiple etiologies could be related to underlying liver disease , + Splenomegaly. --> peripheral smear has been ordered --> Medications have been reviewed --> Continue to monitor for improvement, trend cbc --> Hep panel and HIV have been ordered --> US abd ordered to r/o cirrhosis and hepatosplenomegaly ++ Splenomegaly. --> reverse isolation if ANC is <2000 --> Give neupogen if ANC <1000 # Thrombocytopenia - potential causes multifactorial, evaluate liver and viral etiologies to begin, also could be related to underlying medications patient has received. Pt also has liver cirrhosis --> Hep panel and HIV ordered --> US abd to evaluate for cirrhosis and hsm ordered --> Peripheral smear ordered to evaluate for blasts /schistocytes --> abx and other meds have been reviewed --> ok for ppx if plt >50k w/ either heparin or lovenox --> Transfuse if Plt < 20k and fever, or if Plt < 10k without fever #. Liver Cirrhosis could be due to alcohol use or hepatitis --> US Abd reviewed --> order AFP level #. Surgical Wound-non healing -->S/p hernia surgery -recently --> Surgery is following f/u with wound pathology --> CT Abd reviewed. #. Diabetes The timing of this note does not necessarily reflect the time of the patient was seen. GREATLY APPRECIATE CONSULTATION. Aidan Johns MD Oct 07, 2018 04:34
[2018-10-07] MEDS: NovoLOG Insulin Flexpen SUBQ SCH ×4 (05:42→21:39)
--- NOTE | 2018-10-07 06:29 | General Progress Note ---
Assessment/Plan Problem List: (1) Diabetes mellitus ICD Codes: E11.9 - Type 2 diabetes mellitus without complications SNOMED: 80311840 (2) CHF (congestive heart failure) ICD Codes: I50.9 - Heart failure, unspecified SNOMED: 05503108 (3) Chest tightness ICD Codes: R07.89 - Other chest pain SNOMED: 08955554 (4) Episode of generalized weakness ICD Codes: R53.1 - Weakness SNOMED: 11193025 (5) HTN (hypertension) ICD Codes: I10 - Essential (primary) hypertension SNOMED: 38593754 Status: unchanged Assessment/Plan: continue Metformin 1000 mg bid no need for scheduled basal / bolus insulin for now continue NISS ac / hs Subjective Allergies: Coded Allergies: PENICILLINS (Verified Allergy, Severe, anaphalaxtic, 10/03/18) All Systems: reviewed and negative except above Subjective events noted Item Value Date Time Bedside Blood Glucose 116 mg/dl 10/07/18 0542 Bedside Blood Glucose 213 mg/dl H 10/06/18 2127 Bedside Blood Glucose 148 mg/dl H 10/06/18 1630 Bedside Blood Glucose 157 mg/dl H 10/06/18 1130 Bedside Blood Glucose 125 mg/dl H 10/06/18 0630 Objective Last 24 Hour Vital Signs Date Time Temp Pulse Resp B/P (MAP) Pulse Ox O2 Delivery O2 Flow Rate FiO2 10/07/18 04:00 72 10/07/18 00:05 161/73 10/07/18 00:00 78 10/07/18 00:00 97.9 75 20 161/73 (102) 100 10/06/18 21:00 Room Air 10/06/18 20:00 97.4 81 20 144/74 (97) 97 10/06/18 20:00 80 10/06/18 19:00 72 16 97 Room Air 21 10/06/18 16:00 97.7 90 18 144/65 (91) 98 10/06/18 16:00 92 10/06/18 12:00 105 10/06/18 12:00 96.2 79 18 142/77 (98) 95 10/06/18 09:57 140/76 10/06/18 09:00 Room Air 10/06/18 08:00 98.3 74 18 140/76 (97) 96 10/06/18 08:00 79 Intake and Output 10/06/18 10/07/18 19:00 07:00 Intake Total 120 ml Balance 120 ml Intake Oral 120 ml # Voids 1 Laboratory Tests 10/06/18 06:57: White Blood Count 3.4L, Red Blood Count 3.87L, Hemoglobin 11.0L, Hematocrit 32.9L, Mean Corpuscular Volume 85, Mean Corpuscular Hemoglobin 28.5, Mean Corpuscular Hemoglobin Concent 33.5, Red Cell Distribution Width 14.4, Platelet Count 95L, Mean Platelet Volume 6.3L, Neutrophils (%) (Auto) , Lymphocytes (%) ( Auto) , Monocytes (%) (Auto) , Eosinophils (%) (Auto) , Basophils (%) (Auto) , Differential Total Cells Counted 100, Neutrophils % (Manual) 66, Lymphocytes % ( Manual) 27, Monocytes % (Manual) 5, Eosinophils % (Manual) 1, Basophils % ( Manual) 1, Band Neutrophils 0, Platelet Estimate DecreasedL, Platelet Morphology Normal, Hypochromasia 1+, Anisocytosis 1+, Sodium Level 141, Potassium Level 3.9, Chloride Level 106, Carbon Dioxide Level 30, Anion Gap 5, Blood Urea Nitrogen 13, Creatinine 0.5L, Estimat Glomerular Filtration Rate > 60 , Glucose Level 118H, Calcium Level 9.6 10/07/18 05:54: White Blood Count [Pending], Red Blood Count [Pending], Hemoglobin [Pending], Hematocrit [Pending], Mean Corpuscular Volume [Pending], Mean Corpuscular Hemoglobin [Pending], Mean Corpuscular Hemoglobin Concent [Pending], Red Cell Distribution Width [Pending], Platelet Count [Pending], Mean Platelet Volume [ Pending], Neutrophils (%) (Auto) [Pending], Lymphocytes (%) (Auto) [Pending], Monocytes (%) (Auto) [Pending], Eosinophils (%) (Auto) [Pending], Basophils (%) (Auto) [Pending], Sodium Level [Pending], Potassium Level [Pending], Chloride Level [Pending], Carbon Dioxide Level [Pending], Blood Urea Nitrogen [Pending], Creatinine [Pending], Estimat Glomerular Filtration Rate [Pending], Glucose Level [Pending], Calcium Level [Pending], Iron Level [Pending], Unsaturated Iron Binding [Pending] Height (Feet): 5 Height (Inches): 3.00 Weight (Pounds): 185 General Appearance: no apparent distress Neck: normal alignment Cardiovascular: normal rate Respiratory/Chest: decreased breath sounds Abdomen: normal bowel sounds Pelvis: normal external exam Objective Current Medications Medications (Trade) Dose Ordered Sig/Shila Route PRN Reason Start Time Stop Time Status Last Admin Dose Admin Acetaminophen (Tylenol) 650 mg Q4H PRN ORAL Mild Pain/Temp > 100.5 10/05/18 18:00 11/02/18 17:59 10/06/18 17:44 Albuterol/ Ipratropium (Albuterol/ Ipratropium) 3 ml Q4H PRN HHN Shortness of Breath 10/03/18 17:30 10/08/18 17:29 Aspirin (Ecotrin) 81 mg DAILY ORAL 10/05/18 09:00 11/04/18 08:59 10/06/18 09:57 Atorvastatin Calcium (Lipitor) 40 mg BEDTIME ORAL 10/04/18 21:00 11/03/18 20:59 10/06/18 21:28 Clonidine HCl (Catapres Tab) 0.1 mg Q4H PRN ORAL sbp more than 160 10/03/18 17:30 11/02/18 17:29 10/07/18 00:05 Dextrose (Dextrose 50%) 25 ml Q30M PRN IV Hypoglycemia 10/03/18 17:30 11/02/18 17:29 Dextrose (Dextrose 50%) 50 ml Q30M PRN IV Hypoglycemia 10/03/18 17:30 11/02/18 17:29 Gabapentin (Neurontin) 600 mg THREE TIMES A DAY ORAL 10/03/18 18:00 11/02/18 17:59 10/06/18 17:38 Insulin Aspart (NovoLOG) BEFORE MEALS AND HS SUBQ 10/03/18 21:00 11/02/18 20:59 10/07/18 05:42 Iron Sucrose 100 mg/Sodium Chloride 60 ml @ 240 mls/hr BEDTIME IV 10/06/18 21:00 10/10/18 21:14 10/06/18 21:28 Lisinopril (Prinivil) 20 mg DAILY ORAL 10/05/18 09:00 11/04/18 08:59 10/06/18 09:57 Metformin HCl (Glucophage) 1,000 mg BID ORAL 10/05/18 09:30 11/04/18 09:29 10/06/18 17:38 Morphine Sulfate (Morphine Sulfate) 2 mg Q4H PRN IVP severe pain 7-10 10/03/18 17:30 10/10/18 17:29 Nitroglycerin (Ntg) 0.4 mg Q5M X 3 DOSES PRN SL Prn Chest Pain 10/03/18 17:30 11/02/18 17:29 Ondansetron HCl (Zofran) 4 mg Q6H PRN IVP Nausea & Vomiting 10/03/18 17:30 11/02/18 17:29 Polyethylene Glycol (Miralax) 17 gm HSPRN PRN ORAL Constipation 10/03/18 17:30 11/02/18 17:29 Temazepam (Restoril) 15 mg HSPRN PRN ORAL Insomnia 10/03/18 17:30 10/10/18 17:29 10/06/18 21:28 Jim Allred MD Oct 07, 2018 06:29
[2018-10-07 06:38] LABS: HEMATOCRIT 32.3 % (37.0-47.0); HEMOGLOBIN 10.8 G/DL (12.0-16.0); MEAN CORPUSCULAR VOLUME 85 FL (80-99); PLATELET COUNT 98 K/UL (150-450); RED BLOOD COUNT 3.79 M/UL (4.20-5.40); RED CELL DISTRIBUTION WIDTH 14.5 % (11.6-14.8); WHITE BLOOD COUNT 3.1 K/UL (4.8-10.8)
[2018-10-07 06:58] LABS: % IRON SATURATION 69 % (15-50); IRON 195 ug/dL (50-175); TOTAL IRON BINDING CAPACITY 283 ug/dL (250-450)
[2018-10-07 07:05] LABS: ANION GAP 7 mmol/L (5-15); BLOOD UREA NITROGEN 11 mg/dL (7-18); CALCIUM 9.4 MG/DL (8.5-10.1); CARBON DIOXIDE 28 MMOL/L (21-32); CHLORIDE 107 MMOL/L (98-107); CREATININE 0.5 MG/DL (0.55-1.30); POTASSIUM 3.8 MMOL/L (3.5-5.1); SODIUM 142 MMOL/L (136-145)
--- NOTE | 2018-10-07 07:19 | NUR ---
HAND-OFF: Report given to FUNMILAYO Gray.
--- NOTE | 2018-10-07 07:36 | NUR ---
NURSE NOTES: Received report from FUNMILAYO Dumas. Pt is sleeping with no distress noted. Bed is in lowest position, side rails up X2, and call light is within reach. Will continue to monitor.
[2018-10-07 08:00] VITALS: BP 120/53
[2018-10-07] MEDS: Lisinopril 20mg tab ORAL SCH (08:32)
[2018-10-07] MEDS: Aspirin EC 81mg tab ORAL SCH (08:32)
[2018-10-07] MEDS: metFORMIN 500mg tab ORAL SCH ×2 (08:32→17:28)
--- NOTE | 2018-10-07 09:24 | Infectious Diseases Prog Note ---
Assessment/Plan Assessment/Plan The patient is a 68-year-old female who is afebrile, normal white blood cell, and scant cough appeared to be due to CHF, pulmonary congestion, doubt pneumonia. Cough No Fever No leukocytosis No SOB Abdominal hernia S/p Repair No sign of active infection. CT abd/pel - Evidence of prior anterior abdominal wall hernia repair with mesh in place. There are some adjacent inflammatory changes, not unexpected if surgery was fairly recent. No evidence of fluid collection or other significant complication Evidence of hepatic cirrhosis. Evidence of portal hypertension, with fairly extensive perigastric varices and splenomegaly Gallbladder wall thickening and pericholecystic inflammation. Probably secondary to the above-mentioned portal hypertension. Acalculous acute cholecystitis or acute cholecystitis due to occult stones less likely but also possible, and consideration should be given to hepatobiliary nuclear scan if there is high clinical suspicion Mild infiltration of the mesenteric root caudad to the pancreas. Probably congestion secondary to portal hypertension but inflammatory process also possible Other findings as noted, including lipomatous hypertrophy of the ileocecal valve, duodenal diverticulum, degenerative spondylosis PLAN: - Monitor the patient off of antibiotics. - Monitor CBC and BMP. - Monitor chest x-ray. Subjective Allergies: Coded Allergies: PENICILLINS (Verified Allergy, Severe, anaphalaxtic, 10/03/18) Subjective Afebrile No leukocytosis Objective Vital Signs Last 24 Hour Vital Signs Date Time Temp Pulse Resp B/P (MAP) Pulse Ox O2 Delivery O2 Flow Rate FiO2 10/07/18 08:32 120/53 10/07/18 08:00 97.3 72 18 120/53 (75) 98 10/07/18 04:00 72 10/07/18 04:00 97.4 77 20 118/64 (82) 98 10/07/18 00:05 161/73 10/07/18 00:00 78 10/07/18 00:00 97.9 75 20 161/73 (102) 100 10/06/18 21:00 Room Air 10/06/18 20:00 97.4 81 20 144/74 (97) 97 10/06/18 20:00 80 10/06/18 19:00 72 16 97 Room Air 21 10/06/18 16:00 97.7 90 18 144/65 (91) 98 10/06/18 16:00 92 10/06/18 12:00 105 10/06/18 12:00 96.2 79 18 142/77 (98) 95 10/06/18 09:57 140/76 Height (Feet): 5 Height (Inches): 3.00 Weight (Pounds): 185 Objective GEN: NAD HEENT: NCAT, MMM, EOMI LUNGS: CTAB, No W HEART: RRR, S1, S2 Abd: Soft, NT, ND, Dehisced surgical site with no purulent drainage or cellulitis . Laboratory Tests Test 10/07/18 05:54 White Blood Count 3.1 K/UL (4.8-10.8) L Red Blood Count 3.79 M/UL (4.20-5.40) L Hemoglobin 10.8 G/DL (12.0-16.0) L Hematocrit 32.3 % (37.0-47.0) L Mean Corpuscular Volume 85 FL (80-99) Mean Corpuscular Hemoglobin 28.4 PG (27.0-31.0) Mean Corpuscular Hemoglobin Concent 33.4 G/DL (32.0-36.0) Red Cell Distribution Width 14.5 % (11.6-14.8) Platelet Count 98 K/UL (150-450) L Mean Platelet Volume 6.0 FL (6.5-10.1) L Neutrophils (%) (Auto) % (45.0-75.0) Lymphocytes (%) (Auto) % (20.0-45.0) Monocytes (%) (Auto) % (1.0-10.0) Eosinophils (%) (Auto) % (0.0-3.0) Basophils (%) (Auto) % (0.0-2.0) Neutrophils % (Manual) Pending Lymphocytes % (Manual) Pending Platelet Estimate Pending Platelet Morphology Pending Sodium Level 142 MMOL/L (136-145) Potassium Level 3.8 MMOL/L (3.5-5.1) Chloride Level 107 MMOL/L (98-107) Carbon Dioxide Level 28 MMOL/L (21-32) Anion Gap 7 mmol/L (5-15) Blood Urea Nitrogen 11 mg/dL (7-18) Creatinine 0.5 MG/DL (0.55-1.30) L Estimat Glomerular Filtration Rate > 60 mL/min (>60) Glucose Level 119 MG/DL (74-106) H Calcium Level 9.4 MG/DL (8.5-10.1) Iron Level 195 ug/dL (50-175) H Total Iron Binding Capacity 283 ug/dL (250-450) Percent Iron Saturation 69 % (15-50) H Unsaturated Iron Binding 88 ug/dL (112-346) L Current Medications Medications (Trade) Dose Ordered Sig/Shila Route PRN Reason Start Time Stop Time Status Last Admin Dose Admin Acetaminophen (Tylenol) 650 mg Q4H PRN ORAL Mild Pain/Temp > 100.5 10/05/18 18:00 11/02/18 17:59 10/06/18 17:44 Albuterol/ Ipratropium (Albuterol/ Ipratropium) 3 ml Q4H PRN HHN Shortness of Breath 10/03/18 17:30 10/08/18 17:29 Aspirin (Ecotrin) 81 mg DAILY ORAL 10/05/18 09:00 11/04/18 08:59 10/07/18 08:32 Atorvastatin Calcium (Lipitor) 40 mg BEDTIME ORAL 10/04/18 21:00 11/03/18 20:59 10/06/18 21:28 Clonidine HCl (Catapres Tab) 0.1 mg Q4H PRN ORAL sbp more than 160 10/03/18 17:30 11/02/18 17:29 10/07/18 00:05 Dextrose (Dextrose 50%) 25 ml Q30M PRN IV Hypoglycemia 10/03/18 17:30 11/02/18 17:29 Dextrose (Dextrose 50%) 50 ml Q30M PRN IV Hypoglycemia 10/03/18 17:30 11/02/18 17:29 Gabapentin (Neurontin) 600 mg THREE TIMES A DAY ORAL 10/03/18 18:00 11/02/18 17:59 10/07/18 08:32 Insulin Aspart (NovoLOG) BEFORE MEALS AND HS SUBQ 10/03/18 21:00 11/02/18 20:59 10/07/18 05:42 Iron Sucrose 100 mg/Sodium Chloride 60 ml @ 240 mls/hr BEDTIME IV 10/06/18 21:00 10/10/18 21:14 10/06/18 21:28 Lisinopril (Prinivil) 20 mg DAILY ORAL 10/05/18 09:00 11/04/18 08:59 10/07/18 08:32 Metformin HCl (Glucophage) 1,000 mg BID ORAL 10/05/18 09:30 11/04/18 09:29 10/07/18 08:32 Morphine Sulfate (Morphine Sulfate) 2 mg Q4H PRN IVP severe pain 7-10 10/03/18 17:30 10/10/18 17:29 Nitroglycerin (Ntg) 0.4 mg Q5M X 3 DOSES PRN SL Prn Chest Pain 10/03/18 17:30 11/02/18 17:29 Ondansetron HCl (Zofran) 4 mg Q6H PRN IVP Nausea & Vomiting 10/03/18 17:30 11/02/18 17:29 Polyethylene Glycol (Miralax) 17 gm HSPRN PRN ORAL Constipation 10/03/18 17:30 11/02/18 17:29 Temazepam (Restoril) 15 mg HSPRN PRN ORAL Insomnia 10/03/18 17:30 10/10/18 17:29 10/06/18 21:28 Luiz Briceno MD Oct 07, 2018 09:24
--- NOTE | 2018-10-07 10:20 | GI Progress Note ---
Assessment/Plan Problems: (1) Diabetes mellitus ICD Codes: E11.9 - Type 2 diabetes mellitus without complications SNOMED: 89691933 (2) Pancytopenia ICD Codes: D61.818 - Other pancytopenia SNOMED: 086731934 (3) Anemia ICD Codes: D64.9 - Anemia, unspecified SNOMED: 141950478 (4) Surgical wound dehiscence ICD Codes: T81.31XA - Disruption of external operation (surgical) wound, not elsewhere classified, initial encounter SNOMED: 42632902 (5) Surgical wound, non healing ICD Codes: T81.89XA - Other complications of procedures, not elsewhere classified, initial encounter SNOMED: 508298217 Status: unchanged Status Narrative Discussed with Dr. Jarvis. Assessment/Plan Assessment - s/p ventral hernia repair - Failure of wound closure -Abdominal pelvis CT reviewed. Some inflammation of the abdominal wall fat superficial to the wall mesh. No evidence of diverticulosis or diverticulitis. No small bowel distention of small bowel wall thickening. Evidence of hepatic cirrhosis. Evidence of portal hypertension, with fairly extensive perigastric varices and splenomegaly Gallbladder wall thickening and pericholecystic inflammation. Probably secondary to the above-mentioned portal hypertension. Recommendations EGD scheduled tomorrow - NPO @ [facility]. - hold all blood thinners tonight. - po diet - wound care -Surgical recommendations reviewed, no intervention at this time - OB stool r/o GI bleed - prn transfusions - ppi - follow labs The patient was seen and examined at bedside and all new and available data was reviewed in the patients chart. I agree with the above findings, impression and plan. (Patient seen earlier today. Signature stamp does not reflect patient encounter time.). - Star Jarvis MD Subjective Subjective Feels less nauseated Objective Last 24 Hour Vital Signs Date Time Temp Pulse Resp B/P (MAP) Pulse Ox O2 Delivery O2 Flow Rate FiO2 10/07/18 09:00 Room Air 10/07/18 08:32 120/53 10/07/18 08:00 97.3 72 18 120/53 (75) 98 10/07/18 08:00 77 10/07/18 04:00 72 10/07/18 04:00 97.4 77 20 118/64 (82) 98 10/07/18 00:05 161/73 10/07/18 00:00 78 10/07/18 00:00 97.9 75 20 161/73 (102) 100 10/06/18 21:00 Room Air 10/06/18 20:00 97.4 81 20 144/74 (97) 97 10/06/18 20:00 80 10/06/18 19:00 72 16 97 Room Air 21 10/06/18 16:00 97.7 90 18 144/65 (91) 98 10/06/18 16:00 92 10/06/18 12:00 105 10/06/18 12:00 96.2 79 18 142/77 (98) 95 Intake and Output 10/06/18 10/07/18 18:59 06:59 Intake Total 120 ml Balance 120 ml Intake Oral 120 ml # Voids 1 Laboratory Tests Test 10/07/18 05:54 White Blood Count 3.1 K/UL (4.8-10.8) L Red Blood Count 3.79 M/UL (4.20-5.40) L Hemoglobin 10.8 G/DL (12.0-16.0) L Hematocrit 32.3 % (37.0-47.0) L Mean Corpuscular Volume 85 FL (80-99) Mean Corpuscular Hemoglobin 28.4 PG (27.0-31.0) Mean Corpuscular Hemoglobin Concent 33.4 G/DL (32.0-36.0) Red Cell Distribution Width 14.5 % (11.6-14.8) Platelet Count 98 K/UL (150-450) L Mean Platelet Volume 6.0 FL (6.5-10.1) L Neutrophils (%) (Auto) % (45.0-75.0) Lymphocytes (%) (Auto) % (20.0-45.0) Monocytes (%) (Auto) % (1.0-10.0) Eosinophils (%) (Auto) % (0.0-3.0) Basophils (%) (Auto) % (0.0-2.0) Neutrophils % (Manual) Pending Lymphocytes % (Manual) Pending Platelet Estimate Pending Platelet Morphology Pending Sodium Level 142 MMOL/L (136-145) Potassium Level 3.8 MMOL/L (3.5-5.1) Chloride Level 107 MMOL/L (98-107) Carbon Dioxide Level 28 MMOL/L (21-32) Anion Gap 7 mmol/L (5-15) Blood Urea Nitrogen 11 mg/dL (7-18) Creatinine 0.5 MG/DL (0.55-1.30) L Estimat Glomerular Filtration Rate > 60 mL/min (>60) Glucose Level 119 MG/DL (74-106) H Calcium Level 9.4 MG/DL (8.5-10.1) Iron Level 195 ug/dL (50-175) H Total Iron Binding Capacity 283 ug/dL (250-450) Percent Iron Saturation 69 % (15-50) H Unsaturated Iron Binding 88 ug/dL (112-346) L Height (Feet): 5 Height (Inches): 3.00 Weight (Pounds): 185 General Appearance: WD/WN, no apparent distress, alert, obese Cardiovascular: normal rate Respiratory/Chest: normal breath sounds, no respiratory distress Abdominal Exam: normal bowel sounds, non tender, soft Extremities: normal range of motion, non-tender Bari Estrada NP Oct 07, 2018 10:20
[2018-10-07 12:00] VITALS: BP 102/60
--- NOTE | 2018-10-07 12:10 | Surgery Progress Note ---
Surgery Progress Note Subjective Additional Comments no acute events. states headache but improving. no abdominal pain. no n/v/f/ c. labs noted. sutures removed at bedside. Objective Last 24 Hour Vital Signs Date Time Temp Pulse Resp B/P (MAP) Pulse Ox O2 Delivery O2 Flow Rate FiO2 10/07/18 09:00 Room Air 10/07/18 08:32 120/53 10/07/18 08:00 97.3 72 18 120/53 (75) 98 10/07/18 08:00 77 10/07/18 04:00 72 10/07/18 04:00 97.4 77 20 118/64 (82) 98 10/07/18 00:05 161/73 10/07/18 00:00 78 10/07/18 00:00 97.9 75 20 161/73 (102) 100 10/06/18 21:00 Room Air 10/06/18 20:00 97.4 81 20 144/74 (97) 97 10/06/18 20:00 80 10/06/18 19:00 72 16 97 Room Air 21 10/06/18 16:00 97.7 90 18 144/65 (91) 98 10/06/18 16:00 92 I&O Intake and Output 10/06/18 10/07/18 19:00 07:00 Intake Total 120 ml Balance 120 ml Intake Oral 120 ml # Voids 1 Dressing: saturated Wound: other Drains: other Cardiovascular: RSR Respiratory: clear, decreased breath sounds Abdomen: soft, present bowel sounds, other, non-distended Extremities: no tenderness, no cyanosis Laboratory Tests Test 10/07/18 05:54 White Blood Count 3.1 K/UL (4.8-10.8) L Red Blood Count 3.79 M/UL (4.20-5.40) L Hemoglobin 10.8 G/DL (12.0-16.0) L Hematocrit 32.3 % (37.0-47.0) L Mean Corpuscular Volume 85 FL (80-99) Mean Corpuscular Hemoglobin 28.4 PG (27.0-31.0) Mean Corpuscular Hemoglobin Concent 33.4 G/DL (32.0-36.0) Red Cell Distribution Width 14.5 % (11.6-14.8) Platelet Count 98 K/UL (150-450) L Mean Platelet Volume 6.0 FL (6.5-10.1) L Neutrophils (%) (Auto) % (45.0-75.0) Lymphocytes (%) (Auto) % (20.0-45.0) Monocytes (%) (Auto) % (1.0-10.0) Eosinophils (%) (Auto) % (0.0-3.0) Basophils (%) (Auto) % (0.0-2.0) Differential Total Cells Counted 100 Neutrophils % (Manual) 65 % (45-75) Lymphocytes % (Manual) 26 % (20-45) Monocytes % (Manual) 7 % (1-10) Eosinophils % (Manual) 2 % (0-3) Basophils % (Manual) 0 % (0-2) Band Neutrophils 0 % (0-8) Platelet Estimate Decreased L Platelet Morphology Normal Hypochromasia 1+ Anisocytosis 1+ Sodium Level 142 MMOL/L (136-145) Potassium Level 3.8 MMOL/L (3.5-5.1) Chloride Level 107 MMOL/L (98-107) Carbon Dioxide Level 28 MMOL/L (21-32) Anion Gap 7 mmol/L (5-15) Blood Urea Nitrogen 11 mg/dL (7-18) Creatinine 0.5 MG/DL (0.55-1.30) L Estimat Glomerular Filtration Rate > 60 mL/min (>60) Glucose Level 119 MG/DL (74-106) H Calcium Level 9.4 MG/DL (8.5-10.1) Iron Level 195 ug/dL (50-175) H Total Iron Binding Capacity 283 ug/dL (250-450) Percent Iron Saturation 69 % (15-50) H Unsaturated Iron Binding 88 ug/dL (112-346) L Plan Problems: (1) Surgical wound dehiscence Assessment & Plan: This is a 68-year-old female who was recently gone to [place] approximately 20 days ago for ventral hernia repair. He is unaware of the exact repair that was performed and if mesh was or was not used. Patient now presents with shortness of breath and discomfort. On admission noted to have midline wound dehiscence with sutures present. On evaluation patient has a 3 cm x 3 cm dehisced midline wound with unknown depth. Difficult to discern if there is underlying mesh or not. Ultimately 3 nonabsorbable sutures are identified within the subcutis tissue and unsure if these are related to mesh placement of a possible overlay or not. Minimal erythema nontender no drainage. Patient is a diabetic. Patient denies any complaints from the wound. Given recent surgical intervention in [place] there is significant concern of potential underlying wound pathology. Recommend CT abdomen and pelvis to evaluate for potential mesh placement seroma or bowel or other of normality within the repaired hernia. CT results Impression: Evidence of prior anterior abdominal wall hernia repair with mesh in place. There are some adjacent inflammatory changes, not unexpected if surgery was fairly recent. No evidence of fluid collection or other significant complication Evidence of hepatic cirrhosis. Evidence of portal hypertension, with fairly extensive perigastric varices and splenomegaly Gallbladder wall thickening and pericholecystic inflammation. Probably secondary to the above-mentioned portal hypertension. Acalculous acute cholecystitis or acute cholecystitis due to occult stones less likely but also possible, and consideration should be given to hepatobiliary nuclear scan if there is high clinical suspicion Mild infiltration of the mesenteric root caudad to the pancreas. Probably congestion secondary to portal hypertension but inflammatory process also possible Other findings as noted, including lipomatous hypertrophy of the ileocecal valve , duodenal diverticulum, degenerative spondylosis Sutures removed from midline wound as they were non absorbable to causing foreign body effect. the midline wound from hernia repair seems to have area of non viable tissue. cannot clearly understand how repair was done but seems as if flap of tissue was used to cover mesh and flap may not have viability. some bleeding from periphery noted. area 2cm x 2cm that may demarcate. will monitor now that sutures are out Okay for diet We will continue to monitor Local wound care with plans for outpatient wound care upon discharge no acute surgical intervention planned. Thank you for allowing me to participate in patient's care (2) Surgical wound, non healing (3) CHF (congestive heart failure) (4) Chest tightness (5) Episode of generalized weakness Marlon Miles Oct 07, 2018 12:10
--- NOTE | 2018-10-07 13:45 | General Progress Note ---
Assessment/Plan Problem List: (1) UTI (urinary tract infection) ICD Codes: N39.0 - Urinary tract infection, site not specified SNOMED: 45718376 (2) Pancytopenia ICD Codes: D61.818 - Other pancytopenia SNOMED: 175388397 (3) HTN (hypertension) ICD Codes: I10 - Essential (primary) hypertension SNOMED: 32496280 (4) Anemia ICD Codes: D64.9 - Anemia, unspecified SNOMED: 746327617 (5) Chest tightness ICD Codes: R07.89 - Other chest pain SNOMED: 28247509 (6) CHF (congestive heart failure) ICD Codes: I50.9 - Heart failure, unspecified SNOMED: 67618583 (7) Episode of generalized weakness ICD Codes: R53.1 - Weakness SNOMED: 74170426 Status: unchanged Assessment/Plan: pt diet abx cardio gi heme f/u cbc bmp am pending egd Subjective Constitutional: Reports: weakness Allergies: Coded Allergies: PENICILLINS (Verified Allergy, Severe, anaphalaxtic, 10/03/18) All Systems: reviewed and negative except above Subjective sl dizzy Objective Last 24 Hour Vital Signs Date Time Temp Pulse Resp B/P (MAP) Pulse Ox O2 Delivery O2 Flow Rate FiO2 10/07/18 12:00 98.1 80 18 102/60 (74) 99 10/07/18 09:00 Room Air 10/07/18 08:32 120/53 10/07/18 08:00 97.3 72 18 120/53 (75) 98 10/07/18 08:00 77 10/07/18 04:00 72 10/07/18 04:00 97.4 77 20 118/64 (82) 98 10/07/18 00:05 161/73 10/07/18 00:00 78 10/07/18 00:00 97.9 75 20 161/73 (102) 100 10/06/18 21:00 Room Air 10/06/18 20:00 97.4 81 20 144/74 (97) 97 10/06/18 20:00 80 10/06/18 19:00 72 16 97 Room Air 21 10/06/18 16:00 97.7 90 18 144/65 (91) 98 10/06/18 16:00 92 Intake and Output 10/06/18 10/07/18 19:00 07:00 Intake Total 120 ml Balance 120 ml Intake Oral 120 ml # Voids 1 Laboratory Tests 10/07/18 05:54: White Blood Count 3.1L, Red Blood Count 3.79L, Hemoglobin 10.8L, Hematocrit 32.3L, Mean Corpuscular Volume 85, Mean Corpuscular Hemoglobin 28.4, Mean Corpuscular Hemoglobin Concent 33.4, Red Cell Distribution Width 14.5, Platelet Count 98L, Mean Platelet Volume 6.0L, Neutrophils (%) (Auto) , Lymphocytes (%) ( Auto) , Monocytes (%) (Auto) , Eosinophils (%) (Auto) , Basophils (%) (Auto) , Differential Total Cells Counted 100, Neutrophils % (Manual) 65, Lymphocytes % ( Manual) 26, Monocytes % (Manual) 7, Eosinophils % (Manual) 2, Basophils % ( Manual) 0, Band Neutrophils 0, Platelet Estimate DecreasedL, Platelet Morphology Normal, Hypochromasia 1+, Anisocytosis 1+, Sodium Level 142, Potassium Level 3.8, Chloride Level 107, Carbon Dioxide Level 28, Anion Gap 7, Blood Urea Nitrogen 11, Creatinine 0.5L, Estimat Glomerular Filtration Rate > 60 , Glucose Level 119H, Calcium Level 9.4, Iron Level 195H, Total Iron Binding Capacity 283, Percent Iron Saturation 69H, Unsaturated Iron Binding 88L Height (Feet): 5 Height (Inches): 3.00 Weight (Pounds): 185 General Appearance: lethargic EENT: normal ENT inspection Neck: normal alignment Cardiovascular: normal peripheral pulses, normal rate, regular rhythm Respiratory/Chest: chest wall non-tender, lungs clear, normal breath sounds Abdomen: normal bowel sounds, non tender, soft Extremities: normal inspection Edema: no edema noted Arm (L), no edema noted Arm (R), no edema noted Leg (L), no edema noted Leg (R), no edema noted Pedal (L), no edema noted Pedal (R), no edema noted Generalized Neurologic: responsive, motor weakness Skin: normal pigmentation, warm/dry Donovan Francois DO Oct 07, 2018 13:45
--- NOTE | 2018-10-07 14:17 | Pulmonology Progress Note ---
Assessment/Plan Problems: (1) Generalized weakness (2) Diabetes mellitus (3) HTN (hypertension) (4) Anemia Assessment/Plan Echo reviewed stress study done, results in the EMR, awaiting for cardiology to reivewe it monitor BP sliding scale diabetic diet dc planning soon. Subjective ROS Limited/Unobtainable: No Constitutional: Reports: no symptoms HEENT: Repors: no symptoms Respiratory: Reports: no symptoms Allergies: Coded Allergies: PENICILLINS (Verified Allergy, Severe, anaphalaxtic, 10/03/18) Objective Last 24 Hour Vital Signs Date Time Temp Pulse Resp B/P (MAP) Pulse Ox O2 Delivery O2 Flow Rate FiO2 10/07/18 12:00 98.1 80 18 102/60 (74) 99 10/07/18 12:00 87 10/07/18 09:00 Room Air 10/07/18 08:32 120/53 10/07/18 08:00 97.3 72 18 120/53 (75) 98 10/07/18 08:00 77 10/07/18 04:00 72 10/07/18 04:00 97.4 77 20 118/64 (82) 98 10/07/18 00:05 161/73 10/07/18 00:00 78 10/07/18 00:00 97.9 75 20 161/73 (102) 100 10/06/18 21:00 Room Air 10/06/18 20:00 97.4 81 20 144/74 (97) 97 10/06/18 20:00 80 10/06/18 19:00 72 16 97 Room Air 21 10/06/18 16:00 97.7 90 18 144/65 (91) 98 10/06/18 16:00 92 Intake and Output 10/06/18 10/07/18 19:00 07:00 Intake Total 120 ml Balance 120 ml Intake Oral 120 ml # Voids 1 General Appearance: WD/WN HEENT: normocephalic, atraumatic Respiratory/Chest: chest wall non-tender, lungs clear Cardiovascular: normal peripheral pulses, normal rate Abdomen: normal bowel sounds, soft, non tender Genitourinary: normal external genitalia Skin: no rash, no lesions Laboratory Tests 10/07/18 05:54: White Blood Count 3.1L, Red Blood Count 3.79L, Hemoglobin 10.8L, Hematocrit 32.3L, Mean Corpuscular Volume 85, Mean Corpuscular Hemoglobin 28.4, Mean Corpuscular Hemoglobin Concent 33.4, Red Cell Distribution Width 14.5, Platelet Count 98L, Mean Platelet Volume 6.0L, Neutrophils (%) (Auto) , Lymphocytes (%) ( Auto) , Monocytes (%) (Auto) , Eosinophils (%) (Auto) , Basophils (%) (Auto) , Differential Total Cells Counted 100, Neutrophils % (Manual) 65, Lymphocytes % ( Manual) 26, Monocytes % (Manual) 7, Eosinophils % (Manual) 2, Basophils % ( Manual) 0, Band Neutrophils 0, Platelet Estimate DecreasedL, Platelet Morphology Normal, Hypochromasia 1+, Anisocytosis 1+, Sodium Level 142, Potassium Level 3.8, Chloride Level 107, Carbon Dioxide Level 28, Anion Gap 7, Blood Urea Nitrogen 11, Creatinine 0.5L, Estimat Glomerular Filtration Rate > 60 , Glucose Level 119H, Calcium Level 9.4, Iron Level 195H, Total Iron Binding Capacity 283, Percent Iron Saturation 69H, Unsaturated Iron Binding 88L Current Medications Medications (Trade) Dose Ordered Sig/Shila Route PRN Reason Start Time Stop Time Status Last Admin Dose Admin Acetaminophen (Tylenol) 650 mg Q4H PRN ORAL Mild Pain/Temp > 100.5 10/05/18 18:00 11/02/18 17:59 10/07/18 13:07 Albuterol/ Ipratropium (Albuterol/ Ipratropium) 3 ml Q4H PRN HHN Shortness of Breath 10/03/18 17:30 10/08/18 17:29 Aspirin (Ecotrin) 81 mg DAILY ORAL 10/05/18 09:00 11/04/18 08:59 10/07/18 08:32 Atorvastatin Calcium (Lipitor) 40 mg BEDTIME ORAL 10/04/18 21:00 11/03/18 20:59 10/06/18 21:28 Clonidine HCl (Catapres Tab) 0.1 mg Q4H PRN ORAL sbp more than 160 10/03/18 17:30 11/02/18 17:29 10/07/18 00:05 Dextrose (Dextrose 50%) 25 ml Q30M PRN IV Hypoglycemia 10/03/18 17:30 11/02/18 17:29 Dextrose (Dextrose 50%) 50 ml Q30M PRN IV Hypoglycemia 10/03/18 17:30 11/02/18 17:29 Gabapentin (Neurontin) 600 mg THREE TIMES A DAY ORAL 10/03/18 18:00 11/02/18 17:59 10/07/18 13:07 Insulin Aspart (NovoLOG) BEFORE MEALS AND HS SUBQ 10/03/18 21:00 11/02/18 20:59 10/07/18 13:12 Iron Sucrose 100 mg/Sodium Chloride 60 ml @ 240 mls/hr BEDTIME IV 10/06/18 21:00 10/10/18 21:14 10/06/18 21:28 Lisinopril (Prinivil) 20 mg DAILY ORAL 10/05/18 09:00 11/04/18 08:59 10/07/18 08:32 Metformin HCl (Glucophage) 1,000 mg BID ORAL 10/05/18 09:30 11/04/18 09:29 10/07/18 08:32 Morphine Sulfate (Morphine Sulfate) 2 mg Q4H PRN IVP severe pain 7-10 10/03/18 17:30 10/10/18 17:29 Nitroglycerin (Ntg) 0.4 mg Q5M X 3 DOSES PRN SL Prn Chest Pain 10/03/18 17:30 11/02/18 17:29 Ondansetron HCl (Zofran) 4 mg Q6H PRN IVP Nausea & Vomiting 10/03/18 17:30 11/02/18 17:29 Polyethylene Glycol (Miralax) 17 gm HSPRN PRN ORAL Constipation 10/03/18 17:30 11/02/18 17:29 Temazepam (Restoril) 15 mg HSPRN PRN ORAL Insomnia 10/03/18 17:30 10/10/18 17:29 10/06/18 21:28 Gabby Mayer MD Oct 07, 2018 14:17
[2018-10-07 16:00] VITALS: BP 139/67
--- NOTE | 2018-10-07 16:26 | Cardiac Electrophysiology PN ---
Assessment/Plan Assessment/Plan 1. Shortness of breath and mildly elevated D-dimer. Lower extremity duplex, no evidence of DVT. Currently, she is not short of breath.No NC Echo Nl EF. 2. Hypertension, on lisinopril 20 mg daily and prn clonidine. 3. Hyperlipidemia, on Lipitor. 4. Uncontrolled diabetes, on insulin. 5. Chest pain. Ruled out for NC. ECG Nl. Stress test today showed no ischemia 6. Hepatic cirrhosis and portal hypertension, with fairly extensive perigastric varices and splenomegaly EGD in am per Dr Simona WEST RN Subjective Subjective No CP or SOB.Had Stress test today Objective Last 24 Hour Vital Signs Date Time Temp Pulse Resp B/P (MAP) Pulse Ox O2 Delivery O2 Flow Rate FiO2 10/07/18 12:00 98.1 80 18 102/60 (74) 99 10/07/18 12:00 87 10/07/18 09:00 Room Air 10/07/18 08:32 120/53 10/07/18 08:16 76 18 98 Room Air 21 10/07/18 08:00 97.3 72 18 120/53 (75) 98 10/07/18 08:00 77 10/07/18 04:00 72 10/07/18 04:00 97.4 77 20 118/64 (82) 98 10/07/18 00:05 161/73 10/07/18 00:00 78 10/07/18 00:00 97.9 75 20 161/73 (102) 100 10/06/18 21:00 Room Air 10/06/18 20:00 97.4 81 20 144/74 (97) 97 10/06/18 20:00 80 10/06/18 19:00 72 16 97 Room Air 21 Intake and Output 10/06/18 10/07/18 19:00 07:00 Intake Total 120 ml Balance 120 ml Intake Oral 120 ml # Voids 1 Laboratory Tests Test 10/07/18 05:54 White Blood Count 3.1 K/UL (4.8-10.8) L Red Blood Count 3.79 M/UL (4.20-5.40) L Hemoglobin 10.8 G/DL (12.0-16.0) L Hematocrit 32.3 % (37.0-47.0) L Mean Corpuscular Volume 85 FL (80-99) Mean Corpuscular Hemoglobin 28.4 PG (27.0-31.0) Mean Corpuscular Hemoglobin Concent 33.4 G/DL (32.0-36.0) Red Cell Distribution Width 14.5 % (11.6-14.8) Platelet Count 98 K/UL (150-450) L Mean Platelet Volume 6.0 FL (6.5-10.1) L Neutrophils (%) (Auto) % (45.0-75.0) Lymphocytes (%) (Auto) % (20.0-45.0) Monocytes (%) (Auto) % (1.0-10.0) Eosinophils (%) (Auto) % (0.0-3.0) Basophils (%) (Auto) % (0.0-2.0) Differential Total Cells Counted 100 Neutrophils % (Manual) 65 % (45-75) Lymphocytes % (Manual) 26 % (20-45) Monocytes % (Manual) 7 % (1-10) Eosinophils % (Manual) 2 % (0-3) Basophils % (Manual) 0 % (0-2) Band Neutrophils 0 % (0-8) Platelet Estimate Decreased L Platelet Morphology Normal Hypochromasia 1+ Anisocytosis 1+ Sodium Level 142 MMOL/L (136-145) Potassium Level 3.8 MMOL/L (3.5-5.1) Chloride Level 107 MMOL/L (98-107) Carbon Dioxide Level 28 MMOL/L (21-32) Anion Gap 7 mmol/L (5-15) Blood Urea Nitrogen 11 mg/dL (7-18) Creatinine 0.5 MG/DL (0.55-1.30) L Estimat Glomerular Filtration Rate > 60 mL/min (>60) Glucose Level 119 MG/DL (74-106) H Calcium Level 9.4 MG/DL (8.5-10.1) Iron Level 195 ug/dL (50-175) H Total Iron Binding Capacity 283 ug/dL (250-450) Percent Iron Saturation 69 % (15-50) H Unsaturated Iron Binding 88 ug/dL (112-346) L Objective HEENT: Head and neck showed no JVD or carotid bruits. LUNGS: Clear. CARDIOVASCULAR: Regular S1 and S2 with no gallop or murmur. ABDOMEN: Soft. EXTREMITIES: No pitting edema. Denzel Castillo MD Oct 07, 2018 16:26
--- NOTE | 2018-10-07 19:43 | NUR ---
HAND-OFF: Report given to Dahiana Mcdonald.
[2018-10-07 20:00] VITALS: BP 116/67
--- NOTE | 2018-10-07 20:27 | Hematology/Onc Progress Note ---
Assessment/Plan Assessment/Plan ASSESSMENT AND REC'S # Iron deficiency anemia, unspecified rule out gi bleed --> will/have begun on iv iron and continue x 5 doses --> occult blood is pending. If it is +, then consider Gi evaluation with egd/ colo, appreciate recs --> hgb goal is >7, transfuse as needed --> trend CBC daily # Pancytopenia -- multiple etiologies could be related to underlying liver disease, + Splenomegaly. Cirrhosis+++ --> peripheral smear has been ordered --> Medications have been reviewed --> Continue to monitor for improvement, trend cbc --> Hep panel and HIV are negative --> US abd ordered to r/o cirrhosis and hepatosplenomegaly ++ Splenomegaly. --> reverse isolation if ANC is <2000 --> Give neupogen if ANC <1000 --> ok for ppx if plt >50k w/ either heparin or lovenox --> Transfuse if Plt < 20k and fever, or if Plt < 10k without fever #. Liver Cirrhosis could be due to alcohol use or hepatitis --> US Abd reviewed --> order AFP level #. Surgical Wound-non healing -->S/p hernia surgery -recently --> Surgery is following f/u with wound pathology --> CT Abd reviewed. #. Diabetes The timing of this note does not necessarily reflect the time of the patient was seen. GREATLY APPRECIATE CONSULTATION. Subjective Constitutional: Denies: no symptoms, chills, fever, malaise, weakness, other HEENT: Denies: no symptoms, eye pain, blurred vision, tearing, double vision, ear pain, ear discharge, nose pain, nose congestion, throat pain, throat swelling, mouth pain, mouth swelling, other Cardiovascular: Denies: no symptoms, chest pain, edema, irregular heart rate, lightheadedness, palpitations, syncope, other Respiratory: Denies: no symptoms, cough, shortness of breath, SOB with excertion, SOB at rest, sputum, wheezing, other Gastrointestinal/Abdominal: Denies: no symptoms, abdomen distended, abdominal pain, black stools, tarry stools, blood in stool, constipated, diarrhea, difficulty swallowing, nausea, poor appetite, poor fluid intake, rectal bleeding , vomiting, other Genitourinary: Denies: no symptoms, burning, discharge, frequency, flank pain, hematuria, incontinence, pain, urgency, other Neurologic/Psychiatric: Denies: no symptoms, anxiety, depressed, emotional problems, headache, numbness, paresthesia, pre-existing deficit, seizure, tingling, tremors, weakness, other Endocrine: Denies: no symptoms, excessive sweating, flushing, intolerance to cold, intolerance to heat, increased hunger, increased thirst, increased urine, unexplained weight gain, unexplained weight loss, other Allergies: Coded Allergies: PENICILLINS (Verified Allergy, Severe, anaphalaxtic, 10/03/18) Subjective .18: labs reviewed, relatively stable, anemia shows eusebio, and iv iron started Objective Objective Current Medications Medications (Trade) Dose Ordered Sig/Shila Route PRN Reason Start Time Stop Time Status Last Admin Dose Admin Acetaminophen (Tylenol) 650 mg Q4H PRN ORAL Mild Pain/Temp > 100.5 10/05/18 18:00 11/02/18 17:59 10/07/18 13:07 Albuterol/ Ipratropium (Albuterol/ Ipratropium) 3 ml Q4H PRN HHN Shortness of Breath 10/03/18 17:30 10/08/18 17:29 Aspirin (Ecotrin) 81 mg DAILY ORAL 10/05/18 09:00 11/04/18 08:59 10/07/18 08:32 Atorvastatin Calcium (Lipitor) 40 mg BEDTIME ORAL 10/04/18 21:00 11/03/18 20:59 10/06/18 21:28 Clonidine HCl (Catapres Tab) 0.1 mg Q4H PRN ORAL sbp more than 160 10/03/18 17:30 11/02/18 17:29 10/07/18 00:05 Dextrose (Dextrose 50%) 25 ml Q30M PRN IV Hypoglycemia 10/03/18 17:30 11/02/18 17:29 Dextrose (Dextrose 50%) 50 ml Q30M PRN IV Hypoglycemia 10/03/18 17:30 11/02/18 17:29 Gabapentin (Neurontin) 600 mg THREE TIMES A DAY ORAL 10/03/18 18:00 11/02/18 17:59 10/07/18 13:07 Insulin Aspart (NovoLOG) BEFORE MEALS AND HS SUBQ 10/03/18 21:00 11/02/18 20:59 10/07/18 17:28 Iron Sucrose 100 mg/Sodium Chloride 60 ml @ 240 mls/hr BEDTIME IV 10/06/18 21:00 10/10/18 21:14 10/06/18 21:28 Lisinopril (Prinivil) 20 mg DAILY ORAL 10/05/18 09:00 11/04/18 08:59 10/07/18 08:32 Metformin HCl (Glucophage) 1,000 mg BID ORAL 10/05/18 09:30 11/04/18 09:29 10/07/18 08:32 Morphine Sulfate (Morphine Sulfate) 2 mg Q4H PRN IVP severe pain 7-10/03/18 17:30 10/10/18 17:29 Nitroglycerin (Ntg) 0.4 mg Q5M X 3 DOSES PRN SL Prn Chest Pain 10/03/18 17:30 11/02/18 17:29 Ondansetron HCl (Zofran) 4 mg Q6H PRN IVP Nausea & Vomiting 10/03/18 17:30 11/02/18 17:29 Polyethylene Glycol (Miralax) 17 gm HSPRN PRN ORAL Constipation 10/03/18 17:30 11/02/18 17:29 Temazepam (Restoril) 15 mg HSPRN PRN ORAL Insomnia 10/03/18 17:30 10/10/18 17:29 10/06/18 21:28 Last 24 Hour Vital Signs Date Time Temp Pulse Resp B/P (MAP) Pulse Ox O2 Delivery O2 Flow Rate FiO2 10/07/18 16:00 105 10/07/18 16:00 98.0 80 18 139/67 (91) 97 10/07/18 12:00 98.1 80 18 102/60 (74) 99 10/07/18 12:00 87 10/07/18 09:00 Room Air 10/07/18 08:32 120/53 10/07/18 08:16 76 18 98 Room Air 21 10/07/18 08:00 97.3 72 18 120/53 (75) 98 10/07/18 08:00 77 10/07/18 04:00 72 10/07/18 04:00 97.4 77 20 118/64 (82) 98 10/07/18 00:05 161/73 10/07/18 00:00 78 10/07/18 00:00 97.9 75 20 161/73 (102) 100 10/06/18 21:00 Room Air 10/06/18 20:00 97.4 81 20 144/74 (97) 97 10/06/18 20:00 80 10/06/18 19:00 72 16 97 Room Air 21 10/06/18 16:00 97.7 90 18 144/65 (91) 98 10/06/18 16:00 92 10/06/18 12:00 105 10/06/18 12:00 96.2 79 18 142/77 (98) 95 10/06/18 09:57 140/76 10/06/18 09:00 Room Air 10/06/18 08:00 98.3 74 18 140/76 (97) 96 10/06/18 08:00 79 10/06/18 04:00 97.4 76 18 131/61 (84) 98 10/06/18 04:00 68 10/06/18 00:00 98.1 76 18 127/64 (85) 98 10/05/18 21:00 Room Air Intake and Output 10/06/18 10/07/18 19:00 07:00 Intake Total 120 ml Balance 120 ml Intake Oral 120 ml # Voids 1 Labs Test 10/05/18 07:20 10/05/18 07:25 10/05/18 11:27 10/05/18 11:30 Hemoglobin A1c 6.9 % (4.3-6.0) White Blood Count 3.4 K/UL (4.8-10.8) Red Blood Count 3.75 M/UL (4.20-5.40) Hemoglobin 10.7 G/DL (12.0-16.0) Hematocrit 32.1 % (37.0-47.0) Mean Corpuscular Volume 86 FL (80-99) Mean Corpuscular Hemoglobin 28.4 PG (27.0-31.0) Mean Corpuscular Hemoglobin Concent 33.1 G/DL (32.0-36.0) Red Cell Distribution Width 14.6 % (11.6-14.8) Platelet Count 91 K/UL (150-450) Mean Platelet Volume 6.0 FL (6.5-10.1) Neutrophils (%) (Auto) % (45.0-75.0) Lymphocytes (%) (Auto) % (20.0-45.0) Monocytes (%) (Auto) % (1.0-10.0) Eosinophils (%) (Auto) % (0.0-3.0) Basophils (%) (Auto) % (0.0-2.0) Differential Total Cells Counted 100 Neutrophils % (Manual) 66 % (45-75) Lymphocytes % (Manual) 27 % (20-45) Monocytes % (Manual) 6 % (1-10) Eosinophils % (Manual) 1 % (0-3) Basophils % (Manual) 0 % (0-2) Band Neutrophils 0 % (0-8) Platelet Estimate Decreased Platelet Morphology Normal Anisocytosis 1+ Sodium Level 143 MMOL/L (136-145) Potassium Level 4.0 MMOL/L (3.5-5.1) Chloride Level 107 MMOL/L (98-107) Carbon Dioxide Level 31 MMOL/L (21-32) Anion Gap 5 mmol/L (5-15) Blood Urea Nitrogen 11 mg/dL (7-18) Creatinine 0.5 MG/DL (0.55-1.30) Estimat Glomerular Filtration Rate > 60 mL/min (>60) Glucose Level 122 MG/DL (74-106) Calcium Level 9.7 MG/DL (8.5-10.1) Ferritin 29 NG/ML (8-388) Pro-B-Type Natriuretic Peptide 26 pg/mL (0-125) Vitamin B12 Level 781 PG/ML (193-986) Folate 42.9 NG/ML (8.6-58.9) Thyroid Stimulating Hormone (TSH) 1.075 uiU/mL (0.358-3.740) HIV (1&2) Antibody Rapid Negative (NEGATIVE) Prothrombin Time 10.8 SEC (9.30-11.50) Prothromb Time International Ratio 1.0 (0.9-1.1) Hepatitis A IgM Antibody Negative (Negative) Hepatitis B Surface Antigen Negative (Negative) Hepatitis B Core IgM Antibody Negative (Negative) Hepatitis C Antibody <0.1 s/co ratio Test 10/06/18 06:57 10/07/18 05:54 White Blood Count 3.4 K/UL (4.8-10.8) 3.1 K/UL (4.8-10.8) Red Blood Count 3.87 M/UL (4.20-5.40) 3.79 M/UL (4.20-5.40) Hemoglobin 11.0 G/DL (12.0-16.0) 10.8 G/DL (12.0-16.0) Hematocrit 32.9 % (37.0-47.0) 32.3 % (37.0-47.0) Mean Corpuscular Volume 85 FL (80-99) 85 FL (80-99) Mean Corpuscular Hemoglobin 28.5 PG (27.0-31.0) 28.4 PG (27.0-31.0) Mean Corpuscular Hemoglobin Concent 33.5 G/DL (32.0-36.0) 33.4 G/DL (32.0-36.0) Red Cell Distribution Width 14.4 % (11.6-14.8) 14.5 % (11.6-14.8) Platelet Count 95 K/UL (150-450) 98 K/UL (150-450) Mean Platelet Volume 6.3 FL (6.5-10.1) 6.0 FL (6.5-10.1) Neutrophils (%) (Auto) % (45.0-75.0) % (45.0-75.0) Lymphocytes (%) (Auto) % (20.0-45.0) % (20.0-45.0) Monocytes (%) (Auto) % (1.0-10.0) % (1.0-10.0) Eosinophils (%) (Auto) % (0.0-3.0) % (0.0-3.0) Basophils (%) (Auto) % (0.0-2.0) % (0.0-2.0) Differential Total Cells Counted 100 100 Neutrophils % (Manual) 66 % (45-75) 65 % (45-75) Lymphocytes % (Manual) 27 % (20-45) 26 % (20-45) Monocytes % (Manual) 5 % (1-10) 7 % (1-10) Eosinophils % (Manual) 1 % (0-3) 2 % (0-3) Basophils % (Manual) 1 % (0-2) 0 % (0-2) Band Neutrophils 0 % (0-8) 0 % (0-8) Platelet Estimate Decreased Decreased Platelet Morphology Normal Normal Hypochromasia 1+ 1+ Anisocytosis 1+ 1+ Sodium Level 141 MMOL/L (136-145) 142 MMOL/L (136-145) Potassium Level 3.9 MMOL/L (3.5-5.1) 3.8 MMOL/L (3.5-5.1) Chloride Level 106 MMOL/L (98-107) 107 MMOL/L (98-107) Carbon Dioxide Level 30 MMOL/L (21-32) 28 MMOL/L (21-32) Anion Gap 5 mmol/L (5-15) 7 mmol/L (5-15) Blood Urea Nitrogen 13 mg/dL (7-18) 11 mg/dL (7-18) Creatinine 0.5 MG/DL (0.55-1.30) 0.5 MG/DL (0.55-1.30) Estimat Glomerular Filtration Rate > 60 mL/min (>60) > 60 mL/min (>60) Glucose Level 118 MG/DL (74-106) 119 MG/DL (74-106) Calcium Level 9.6 MG/DL (8.5-10.1) 9.4 MG/DL (8.5-10.1) Iron Level 195 ug/dL (50-175) Total Iron Binding Capacity 283 ug/dL (250-450) Percent Iron Saturation 69 % (15-50) Unsaturated Iron Binding 88 ug/dL (112-346) Height (Feet): 5 Height (Inches): 3.00 Weight (Pounds): 185 Objective General Appearance: no apparent distress, alert, Head: normocephalic, atraumatic Eyes: bilateral eye normal inspection, bilateral eye PERRL ENT: hearing grossly normal, normal pharynx, no angioedema, normal voice Neck: full range of motion, supple/symm/no masses Respiratory: lungs clear Cardiovascular: regular rate, rhythm, no edema Gastrointestinal: normal bowel sounds, non tender, soft, non-distended, no guarding, no rebound Musculoskeletal: back normal, gait/station normal, normal range of motion, non- tender, swelling - +Swelling of L. hand through upper arm. Neurologic: alert, oriented x3, responsive, motor strength/tone normal, sensory intact, speech normal Psychiatric: judgement/insight normal, memory normal, mood/affect normal, no suicidal/homicidal ideation Skin: normal color, no rash, warm/dry, Aidan Johns MD Oct 07, 2018 20:27
[2018-10-07] MEDS: Iron Sucrose 100 MG in NS 55 ML IV SCH (21:38)
[2018-10-07] MEDS: Atorvastatin 20mg tab ORAL SCH (21:39)
[2018-10-08] VITALS (11 sets, daily range): BP systolic 113–171; BP diastolic 65–85
[2018-10-08] MEDS: NovoLOG Insulin Flexpen SUBQ SCH ×4 (06:30→22:23)
[2018-10-08 06:42] LABS: HEMATOCRIT 33.2 % (37.0-47.0); MEAN CORPUSCULAR VOLUME 85 FL (80-99); PLATELET COUNT 112 K/UL (150-450); RED BLOOD COUNT 3.91 M/UL (4.20-5.40); RED CELL DISTRIBUTION WIDTH 14.4 % (11.6-14.8); WHITE BLOOD COUNT 3.3 K/UL (4.8-10.8)
[2018-10-08 06:45] LABS: ANION GAP 8 mmol/L (5-15); BLOOD UREA NITROGEN 8 mg/dL (7-18); CALCIUM 9.4 MG/DL (8.5-10.1); CARBON DIOXIDE 28 MMOL/L (21-32); CHLORIDE 106 MMOL/L (98-107); CREATININE 0.5 MG/DL (0.55-1.30); POTASSIUM 3.9 MMOL/L (3.5-5.1); SODIUM 142 MMOL/L (136-145)
--- NOTE | 2018-10-08 06:47 | NUR ---
NURSE NOTE: PATIENT NPO SINCE MIDNIGHT FOR EGD IN AM. PATIENT SLEPT THROUGH THE NIGHT, NO COMPLAINTS OF PAIN.
--- NOTE | 2018-10-08 07:44 | NUR ---
HAND-OFF: Report given to Donta LE RN.PATIENT RESTING IN BED, NO SIGNS OF DISTRESS NOTED.
--- NOTE | 2018-10-08 07:55 | NUR ---
NURSE NOTES: Pt received from FUNMILAYO Mcdonald alert and oriented x4 with no acute s/s of distress noted. Iv site asymptomatic and patent on R ac 22g, saline lock. Dressing dry and intact, no complaints of pain at this time. Bed in lowest position. Call light and belongings within reach.
--- NOTE | 2018-10-08 08:43 | Pre-Procedure Note/Attestation ---
Pre-Procedure Note/Attestation Complete Prior to Procedure Planned Procedure: not applicable Procedure Narrative: egd Indications for Procedure Pre-Operative Diagnosis: cirrhosis Attestation I attest that I discussed the nature of the procedure; its benefits; risks and complications; and alternatives (and the risks and benefits of such alternatives ), prior to the procedure, with the patient (or the patient's legal customer response representative). I attest that, if there was a reasonable possibility of needing a blood transfusion, the patient (or the patient's legal customer response representative) was given the [facility] standardized written summary, pursuant to the [place] Blood Safety Act ([place] Health and Safety Code # 1645, as amended). I attest that I re-evaluated the patient just prior to the surgery and that there has been no change in the patient's H&P, except as documented below: Star Jarvis MD Oct 08, 2018 08:43
--- NOTE | 2018-10-08 08:44 | Anethesia Preoperative Eval ---
Anesthesia Pre-op PMH/ROS General Date of Evaluation: Oct 08, 2018 Time of Evaluation: 08:42 Anesthesiologist: Amy ASA Score: ASA 3 Mallampati Score Class I : Soft palate, uvula, fauces, pillars visible Class II: Soft palate, uvula, fauces visible Class III: Soft palate, base of uvula visible Class IV: Only hard plate visible Mallampati Classification: Class II Surgeon: Simona Diagnosis: Abdominal pain Surgical Procedure: EGD Anesthesia History: none Family History: no anesthesia problems Allergies: Coded Allergies: PENICILLINS (Verified Allergy, Severe, anaphalaxtic, 10/03/18) Medications: see eMAR Patient NPO?: Yes Past Medical History Cardiovascular: Reports: HTN, CAD; Denies: FL, valve dz, arrhythmia, other Pulmonary: Reports: KAMI; Denies: asthma, COPD, other Gastrointestinal/Genitourinary: Reports: GERD; Denies: CRI, ESRD, other Neurologic/Psychiatric: Reports: depression/anxiety; Denies: dementia, CVA, TIA, other Endocrine: Reports: DM - poorly controlled; Denies: hypothyroidism, steroids, other HEENT: Denies: cataract (L), cataract (R), glaucoma, [place] (L), [place] (R), other Hematology/Immune: Reports: anemia - mild; Denies: DVT, bleeding disorder, other Musculoskeletal/Integumentary: Reports: DJD; Denies: OA, RA, DDD, edema, other Other: obesity PMH Narrative: as above PSxH Narrative: see H&P Anesthesia Pre-op Phys. Exam Physician Exam Last Vital Signs Date Time Temp Pulse Resp B/P (MAP) Pulse Ox O2 Delivery O2 Flow Rate FiO2 10/08/18 04:00 83 10/08/18 04:00 97.7 18 120/70 (87) 99 10/07/18 21:00 Room Air 10/07/18 20:50 21 Constitutional: NAD Neurologic: CN 2-12 intact Cardiovascular: RRR, no M/R/G Respiratory: CTA Gastrointestinal: other - obesity Airway Exam Mallampati Score: Class II MO: limited Neck: short ROM: limited Teeth: missing Dentures: no upper, no lower Anesthesia Pre-op A/P Labs Hematology Test 10/08/18 05:37 White Blood Count 3.3 K/UL (4.8-10.8) L Red Blood Count 3.91 M/UL (4.20-5.40) L Hemoglobin 11.0 G/DL (12.0-16.0) L Hematocrit 33.2 % (37.0-47.0) L Mean Corpuscular Volume 85 FL (80-99) Mean Corpuscular Hemoglobin 28.2 PG (27.0-31.0) Mean Corpuscular Hemoglobin Concent 33.2 G/DL (32.0-36.0) Red Cell Distribution Width 14.4 % (11.6-14.8) Platelet Count 112 K/UL (150-450) L Mean Platelet Volume 6.8 FL (6.5-10.1) Neutrophils (%) (Auto) % (45.0-75.0) Lymphocytes (%) (Auto) % (20.0-45.0) Monocytes (%) (Auto) % (1.0-10.0) Eosinophils (%) (Auto) % (0.0-3.0) Basophils (%) (Auto) % (0.0-2.0) Neutrophils % (Manual) Pending Lymphocytes % (Manual) Pending Platelet Estimate Pending Platelet Morphology Pending Coagulation Test 10/08/18 05:37 Prothrombin Time 10.9 SEC (9.30-11.50) Prothromb Time International Ratio 1.0 (0.9-1.1) Activated Partial Thromboplast Time 27 SEC (23-33) Chemistry Test 10/08/18 05:37 Sodium Level 142 MMOL/L (136-145) Potassium Level 3.9 MMOL/L (3.5-5.1) Chloride Level 106 MMOL/L (98-107) Carbon Dioxide Level 28 MMOL/L (21-32) Anion Gap 8 mmol/L (5-15) Blood Urea Nitrogen 8 mg/dL (7-18) Creatinine 0.5 MG/DL (0.55-1.30) L Estimat Glomerular Filtration Rate > 60 mL/min (>60) Glucose Level 119 MG/DL (74-106) H Calcium Level 9.4 MG/DL (8.5-10.1) Risk Assessment & Plan Assessment: ASA 3 Plan: MAC Status Change Before Surgery: Jamari Rojas MD Oct 08, 2018 08:44
[2018-10-08] MEDS ORDERED: fentaNYL 100 mcg/2 mL IV PRN (08:45)
[2018-10-08] MEDS ORDERED: NS 500ML IVPB ONE (08:45)
--- NOTE | 2018-10-08 08:45 | General Progress Note ---
Assessment/Plan Problem List: (1) Generalized weakness ICD Codes: R53.1 - Weakness SNOMED: 18564397 (2) Diabetes mellitus ICD Codes: E11.9 - Type 2 diabetes mellitus without complications SNOMED: 47351472 (3) HTN (hypertension) ICD Codes: I10 - Essential (primary) hypertension SNOMED: 64011670 (4) UTI (urinary tract infection) ICD Codes: N39.0 - Urinary tract infection, site not specified SNOMED: 17035395 (5) Anemia ICD Codes: D64.9 - Anemia, unspecified SNOMED: 655126070 Status: unchanged Assessment/Plan: plan EGD for today Subjective ROS Limited/Unobtainable: Yes Allergies: Coded Allergies: PENICILLINS (Verified Allergy, Severe, anaphalaxtic, 10/03/18) Objective Last 24 Hour Vital Signs Date Time Temp Pulse Resp B/P (MAP) Pulse Ox O2 Delivery O2 Flow Rate FiO2 10/08/18 04:00 83 10/08/18 04:00 97.7 86 18 120/70 (87) 99 10/08/18 00:00 97.2 81 19 113/69 (84) 97 10/08/18 00:00 78 10/07/18 21:00 Room Air 10/07/18 20:50 70 18 97 Room Air 21 10/07/18 20:00 81 10/07/18 20:00 97.7 84 19 116/67 (83) 97 10/07/18 16:00 105 10/07/18 16:00 98.0 80 18 139/67 (91) 97 10/07/18 12:00 98.1 80 18 102/60 (74) 99 10/07/18 12:00 87 10/07/18 09:00 Room Air Intake and Output 10/07/18 10/08/18 19:00 07:00 Intake Total 490 ml 180 ml Output Total 1 ml Balance 489 ml 180 ml Intake Oral 490 ml 120 ml IV Total 60 ml Output Urine Total 1 ml # Voids 2 3 Laboratory Tests 10/08/18 05:37: White Blood Count 3.3L, Red Blood Count 3.91L, Hemoglobin 11.0L, Hematocrit 33.2L, Mean Corpuscular Volume 85, Mean Corpuscular Hemoglobin 28.2, Mean Corpuscular Hemoglobin Concent 33.2, Red Cell Distribution Width 14.4, Platelet Count 112L, Mean Platelet Volume 6.8, Neutrophils (%) (Auto) , Lymphocytes (%) ( Auto) , Monocytes (%) (Auto) , Eosinophils (%) (Auto) , Basophils (%) (Auto) , Neutrophils % (Manual) [Pending], Lymphocytes % (Manual) [Pending], Platelet Estimate [Pending], Platelet Morphology [Pending], Prothrombin Time 10.9, Prothromb Time International Ratio 1.0, Activated Partial Thromboplast Time 27, Sodium Level 142, Potassium Level 3.9, Chloride Level 106, Carbon Dioxide Level 28, Anion Gap 8, Blood Urea Nitrogen 8, Creatinine 0.5L, Estimat Glomerular Filtration Rate > 60, Glucose Level 119H, Calcium Level 9.4 Height (Feet): 5 Height (Inches): 3.00 Weight (Pounds): 185 General Appearance: alert EENT: normal ENT inspection Neck: supple Cardiovascular: normal peripheral pulses Respiratory/Chest: decreased breath sounds Abdomen: normal bowel sounds, non tender, soft Star Jarvis MD Oct 08, 2018 08:45
[2018-10-08] MEDS: Aspirin EC 81mg tab ORAL SCH (08:48)
[2018-10-08] MEDS: metFORMIN 500mg tab ORAL SCH ×2 (08:48→17:24)
[2018-10-08] MEDS: Lisinopril 20mg tab ORAL SCH (08:49)
--- NOTE | 2018-10-08 08:59 | Endoscopy Procedure Note ---
Endoscopy Procedure Note General Indication for Procedure: cirrhosis Procedures Performed: EGD Operative Findings/Diagnosis: gastritis Specimen: yes Pt Tolerated Procedure Well: Yes Estimated Blood Loss: none Anesthesia Anesthesiologist: paola Anesthesia: MAC Inserted Devices Implant(s) used?: No GI Core Measures 50 yrs or older w/o bx or poly: Not Applicable 10yrs. F/U recommended: Not Applicable Star Jarvis MD Oct 08, 2018 08:59
[2018-10-08] MEDS ORDERED: Propofol 200mg/20ml IV ONE (09:00)
[2018-10-08] MEDS ORDERED: fentaNYL 100 mcg/2 mL IV ONE (09:00)
--- NOTE | 2018-10-08 09:09 | Immediate Post-Op Evaluation ---
Immediate Post-Op Evalulation Immediate Post-Op Evalulation Procedure: EGD with Bx Date of Evaluation: Oct 08, 2018 Time of Evaluation: 09:08 IV Fluids: 200 Blood Products: none Estimated Blood Loss: min Urinary Output: none Blood Pressure Systolic: 146 Blood Pressure Diastolic: 78 Pulse Rate: 82 Respiratory Rate: 20 O2 Sat by Pulse Oximetry: 98 Temperature (Fahrenheit): 97.7 Pain Score (1-10): 1 Nausea: No Vomiting: No Complications none Patient Status: reacts, patent, none Hydration Status: adequate Jamari Reyes MD Oct 08, 2018 09:09
--- NOTE | 2018-10-08 09:54 | 48 Hour Post Anesthesia Eval ---
Post Anesthesia Evaluation Procedure: EGD with Bx Date of Evaluation: Oct 08, 2018 Time of Evaluation: 09:53 Blood Pressure Systolic: 142 0: 76 Pulse Rate: 84 Respiratory Rate: 20 Temperature (Fahrenheit): 97.6 O2 Sat by Pulse Oximetry: 98 Airway: patent Nausea: No Vomiting: No Pain Intensity: 1 Hydration Status: adequate Cardiopulmonary Status: stable Mental Status/LOC: patient returned to baseline Follow-up Care/Observations: none Post-Anesthesia Complications: n/a Follow-up care needed: N/A Jamari Reyes MD Oct 08, 2018 09:54
--- NOTE | 2018-10-08 11:53 | NUR ---
CASE MANAGEMENT: REVIEW 10/08/2018 SI:CHF (NEW DX) T 97.8 HR 89 RR 48 B/P 145/80 SATS 100% ON 3L/NC WBC 3.3 PLT 112 CR 0.5 GLU 119 IS: LIPITOR PO QHS VENOFER IV QHS METFORMIN PO BID ASA PO QD LISINOPRIL PO QD INSULIN ASPART SUBQ AC/HS GABAPENTIN PO TID TELE STATUS DCP: PATIENT TO BE DISCHARGED TO HOME ONCE MEDICALLY CLEARED. PLAN OF CARE: 1. O2 and pulmonary treatment. 2. Blood pressure and blood sugar control. EGD>>> GASTRITIS
--- NOTE | 2018-10-08 12:51 | Pulmonology Progress Note ---
Assessment/Plan Problems: (1) Portal hypertension (2) Advanced cirrhosis of liver (3) Generalized weakness (4) Diabetes mellitus (5) HTN (hypertension) (6) Anemia Assessment/Plan Echo reviewed stress study done, was negative monitor BP sliding scale diabetic diet for endoscopy Subjective ROS Limited/Unobtainable: No Constitutional: Reports: no symptoms HEENT: Repors: no symptoms Respiratory: Reports: no symptoms Allergies: Coded Allergies: PENICILLINS (Verified Allergy, Severe, anaphalaxtic, 10/03/18) Objective Last 24 Hour Vital Signs Date Time Temp Pulse Resp B/P (MAP) Pulse Ox O2 Delivery O2 Flow Rate FiO2 10/08/18 12:00 97.6 85 20 134/70 (91) 98 10/08/18 09:54 84 20 98 10/08/18 09:50 85 26 153/72 97 Room Air 10/08/18 09:30 90 19 169/85 99 Room Air 10/08/18 09:20 92 18 166/80 100 Nasal Cannula 3 10/08/18 09:15 94 20 171/82 100 Nasal Cannula 3 89 10/08/18 09:10 97.8 89 48 145/80 100 Nasal Cannula 3 89 10/08/18 09:09 82 20 98 10/08/18 09:00 Room Air 10/08/18 08:24 72 18 97 Room Air 21 10/08/18 08:00 83 10/08/18 08:00 97.9 77 18 135/65 (88) 100 10/08/18 04:00 83 10/08/18 04:00 97.7 86 18 120/70 (87) 99 10/08/18 00:00 97.2 81 19 113/69 (84) 97 10/08/18 00:00 78 10/07/18 21:00 Room Air 10/07/18 20:50 70 18 97 Room Air 21 10/07/18 20:00 81 10/07/18 20:00 97.7 84 19 116/67 (83) 97 10/07/18 16:00 105 10/07/18 16:00 98.0 80 18 139/67 (91) 97 Intake and Output 10/07/18 10/08/18 18:59 06:59 Intake Total 490 ml 180 ml Output Total 1 ml Balance 489 ml 180 ml Intake Oral 490 ml 120 ml IV Total 60 ml Output Urine Total 1 ml # Voids 2 3 General Appearance: WD/WN HEENT: normocephalic, atraumatic Respiratory/Chest: chest wall non-tender, lungs clear, normal breath sounds Breasts: no masses Cardiovascular: normal peripheral pulses Genitourinary: normal external genitalia Skin: no rash Laboratory Tests 10/08/18 05:37: White Blood Count 3.3L, Red Blood Count 3.91L, Hemoglobin 11.0L, Hematocrit 33.2L, Mean Corpuscular Volume 85, Mean Corpuscular Hemoglobin 28.2, Mean Corpuscular Hemoglobin Concent 33.2, Red Cell Distribution Width 14.4, Platelet Count 112L, Mean Platelet Volume 6.8, Neutrophils (%) (Auto) , Lymphocytes (%) ( Auto) , Monocytes (%) (Auto) , Eosinophils (%) (Auto) , Basophils (%) (Auto) , Differential Total Cells Counted 100, Neutrophils % (Manual) 69, Lymphocytes % ( Manual) 21, Monocytes % (Manual) 7, Eosinophils % (Manual) 2, Basophils % ( Manual) 1, Band Neutrophils 0, Platelet Estimate DecreasedL, Platelet Morphology Normal, Prothrombin Time 10.9, Prothromb Time International Ratio 1.0 , Activated Partial Thromboplast Time 27, Sodium Level 142, Potassium Level 3.9 , Chloride Level 106, Carbon Dioxide Level 28, Anion Gap 8, Blood Urea Nitrogen 8, Creatinine 0.5L, Estimat Glomerular Filtration Rate > 60, Glucose Level 119H , Calcium Level 9.4 Current Medications Medications (Trade) Dose Ordered Sig/Shila Route PRN Reason Start Time Stop Time Status Last Admin Dose Admin Acetaminophen (Tylenol) 325 mg Q4H PRN ORAL Mild Pain (Pain Scale 1-3) 10/08/18 08:45 10/08/18 14:00 Acetaminophen (Tylenol) 650 mg Q4H PRN ORAL Mild Pain/Temp > 100.5 10/05/18 18:00 11/02/18 17:59 10/07/18 13:07 Albuterol/ Ipratropium (Albuterol/ Ipratropium) 3 ml Q4H PRN HHN Shortness of Breath 10/03/18 17:30 10/08/18 17:29 Aspirin (Ecotrin) 81 mg DAILY ORAL 10/05/18 09:00 11/04/18 08:59 10/07/18 08:32 Atorvastatin Calcium (Lipitor) 40 mg BEDTIME ORAL 10/04/18 21:00 11/03/18 20:59 10/07/18 21:39 Clonidine HCl (Catapres Tab) 0.1 mg Q4H PRN ORAL sbp more than 160 10/03/18 17:30 11/02/18 17:29 10/07/18 00:05 Dextrose (Dextrose 50%) 25 ml Q30M PRN IV Hypoglycemia 10/03/18 17:30 11/02/18 17:29 Dextrose (Dextrose 50%) 50 ml Q30M PRN IV Hypoglycemia 10/03/18 17:30 11/02/18 17:29 Fentanyl Citrate (Sublimaze 100 mcg/2 mL) 25 mcg Q10M PRN IV Moderate Pain (Pain Scale 4-6) 10/08/18 08:45 10/08/18 14:00 Gabapentin (Neurontin) 600 mg THREE TIMES A DAY ORAL 10/03/18 18:00 11/02/18 17:59 10/08/18 12:18 Insulin Aspart (NovoLOG) BEFORE MEALS AND HS SUBQ 10/03/18 21:00 11/02/18 20:59 10/08/18 12:19 Iron Sucrose 100 mg/Sodium Chloride 60 ml @ 240 mls/hr BEDTIME IV 10/06/18 21:00 10/10/18 21:14 10/07/18 21:38 Lisinopril (Prinivil) 20 mg DAILY ORAL 10/05/18 09:00 11/04/18 08:59 10/07/18 08:32 Metformin HCl (Glucophage) 1,000 mg BID ORAL 10/05/18 09:30 11/04/18 09:29 10/07/18 08:32 Morphine Sulfate (Morphine Sulfate) 2 mg Q4H PRN IVP severe pain 7-10 10/03/18 17:30 10/10/18 17:29 Nitroglycerin (Ntg) 0.4 mg Q5M X 3 DOSES PRN SL Prn Chest Pain 10/03/18 17:30 11/02/18 17:29 Ondansetron HCl (Zofran) 4 mg Q1H PRN IVP Nausea & Vomiting 10/08/18 08:45 10/08/18 14:00 Ondansetron HCl (Zofran) 4 mg Q6H PRN IVP Nausea & Vomiting 10/03/18 17:30 11/02/18 17:29 Polyethylene Glycol (Miralax) 17 gm HSPRN PRN ORAL Constipation 10/03/18 17:30 11/02/18 17:29 Temazepam (Restoril) 15 mg HSPRN PRN ORAL Insomnia 10/03/18 17:30 10/10/18 17:29 10/07/18 22:41 Gabby Mayer MD Oct 08, 2018 12:51
--- NOTE | 2018-10-08 13:00 | Procedure Note ---
DATE OF PROCEDURE: 10/08/2018 SURGEON: Star Jarvis M.D. PROCEDURE: Upper endoscopy with biopsy. ANESTHESIOLOGIST: Jamari Reyes M.D. INSTRUMENT: Olympus adult flexible upper endoscope. INDICATION: Cirrhosis, evaluation of varices. REASON FOR PROCEDURE: The procedure, risks, benefits, and possible consequences, including hemorrhage, aspiration, perforation and infection, and alternative treatments, were explained to the patient/legal guardian by Dr. Star Jarvis and the patient/legal guardian understood and accepted these risks. DESCRIPTION OF PROCEDURE: After informed consent was obtained, the patient was adequately sedated, Olympus upper endoscope was advanced from mouth into the second portion of duodenum and retroflexion was performed in the stomach. The patient had no obvious large esophageal varices. No hiatal hernia. In the stomach, there was no gastric varices. There was evidence of mild portal hypertensive gastropathy. In the prepyloric region, there was a lot of inflammation, biopsy from this area was obtained. The patient tolerated the procedure very well without any complication. SUMMARY OF FINDINGS: 1. No esophageal or obvious gastric varices. 2. Mild portal hypertensive gastropathy. 3. Inflammatory area in the prepyloric region, status post biopsy. RECOMMENDATIONS: Follow up biopsy results and treat accordingly. I want to thank Dr. Donovan Francois for this kind referral. Star Jarvis M.D. DR: LESLEY JOB#: [id number] CC: Donovan Francois D.O.
--- NOTE | 2018-10-08 13:12 | Infectious Diseases Prog Note ---
Assessment/Plan Assessment/Plan The patient is a 68-year-old female who is afebrile, normal white blood cell, and scant cough appeared to be due to CHF, pulmonary congestion, doubt pneumonia. Cough No Fever No leukocytosis No SOB Abdominal hernia S/p Repair No sign of active infection. CT abd/pel - Evidence of prior anterior abdominal wall hernia repair with mesh in place. There are some adjacent inflammatory changes, not unexpected if surgery was fairly recent. No evidence of fluid collection or other significant complication Evidence of hepatic cirrhosis. Evidence of portal hypertension, with fairly extensive perigastric varices and splenomegaly Gallbladder wall thickening and pericholecystic inflammation. Probably secondary to the above-mentioned portal hypertension. Acalculous acute cholecystitis or acute cholecystitis due to occult stones less likely but also possible, and consideration should be given to hepatobiliary nuclear scan if there is high clinical suspicion Mild infiltration of the mesenteric root caudad to the pancreas. Probably congestion secondary to portal hypertension but inflammatory process also possible Other findings as noted, including lipomatous hypertrophy of the ileocecal valve, duodenal diverticulum, degenerative spondylosis PLAN: - Continue to monitor the patient off of antibiotics. - Monitor CBC and BMP. - Monitor chest x-ray. Subjective Allergies: Coded Allergies: PENICILLINS (Verified Allergy, Severe, anaphalaxtic, 10/03/18) Subjective Had EGD this am Afebrile No leukocytosis Objective Vital Signs Last 24 Hour Vital Signs Date Time Temp Pulse Resp B/P (MAP) Pulse Ox O2 Delivery O2 Flow Rate FiO2 10/08/18 12:00 97.6 85 20 134/70 (91) 98 10/08/18 09:54 84 20 98 10/08/18 09:50 85 26 153/72 97 Room Air 10/08/18 09:30 90 19 169/85 99 Room Air 10/08/18 09:20 92 18 166/80 100 Nasal Cannula 3 10/08/18 09:15 94 20 171/82 100 Nasal Cannula 3 89 10/08/18 09:10 97.8 89 48 145/80 100 Nasal Cannula 3 89 10/08/18 09:09 82 20 98 10/08/18 09:00 Room Air 10/08/18 08:24 72 18 97 Room Air 21 10/08/18 08:00 83 10/08/18 08:00 97.9 77 18 135/65 (88) 100 10/08/18 04:00 83 10/08/18 04:00 97.7 86 18 120/70 (87) 99 10/08/18 00:00 97.2 81 19 113/69 (84) 97 10/08/18 00:00 78 10/07/18 21:00 Room Air 10/07/18 20:50 70 18 97 Room Air 21 10/07/18 20:00 81 10/07/18 20:00 97.7 84 19 116/67 (83) 97 10/07/18 16:00 105 10/07/18 16:00 98.0 80 18 139/67 (91) 97 Height (Feet): 5 Height (Inches): 3.00 Weight (Pounds): 185 Objective GEN: NAD, Satting well on RA HEENT: NCAT, MMM, EOMI LUNGS: CTAB, No W HEART: RRR, S1, S2 Abd: Soft, NT, ND, Dehisced surgical site with no purulent drainage or cellulitis . Laboratory Tests Test 10/08/18 05:37 White Blood Count 3.3 K/UL (4.8-10.8) L Red Blood Count 3.91 M/UL (4.20-5.40) L Hemoglobin 11.0 G/DL (12.0-16.0) L Hematocrit 33.2 % (37.0-47.0) L Mean Corpuscular Volume 85 FL (80-99) Mean Corpuscular Hemoglobin 28.2 PG (27.0-31.0) Mean Corpuscular Hemoglobin Concent 33.2 G/DL (32.0-36.0) Red Cell Distribution Width 14.4 % (11.6-14.8) Platelet Count 112 K/UL (150-450) L Mean Platelet Volume 6.8 FL (6.5-10.1) Neutrophils (%) (Auto) % (45.0-75.0) Lymphocytes (%) (Auto) % (20.0-45.0) Monocytes (%) (Auto) % (1.0-10.0) Eosinophils (%) (Auto) % (0.0-3.0) Basophils (%) (Auto) % (0.0-2.0) Differential Total Cells Counted 100 Neutrophils % (Manual) 69 % (45-75) Lymphocytes % (Manual) 21 % (20-45) Monocytes % (Manual) 7 % (1-10) Eosinophils % (Manual) 2 % (0-3) Basophils % (Manual) 1 % (0-2) Band Neutrophils 0 % (0-8) Platelet Estimate Decreased L Platelet Morphology Normal Prothrombin Time 10.9 SEC (9.30-11.50) Prothromb Time International Ratio 1.0 (0.9-1.1) Activated Partial Thromboplast Time 27 SEC (23-33) Sodium Level 142 MMOL/L (136-145) Potassium Level 3.9 MMOL/L (3.5-5.1) Chloride Level 106 MMOL/L (98-107) Carbon Dioxide Level 28 MMOL/L (21-32) Anion Gap 8 mmol/L (5-15) Blood Urea Nitrogen 8 mg/dL (7-18) Creatinine 0.5 MG/DL (0.55-1.30) L Estimat Glomerular Filtration Rate > 60 mL/min (>60) Glucose Level 119 MG/DL (74-106) H Calcium Level 9.4 MG/DL (8.5-10.1) Current Medications Medications (Trade) Dose Ordered Sig/Shila Route PRN Reason Start Time Stop Time Status Last Admin Dose Admin Acetaminophen (Tylenol) 325 mg Q4H PRN ORAL Mild Pain (Pain Scale 1-3) 10/08/18 08:45 10/08/18 14:00 Acetaminophen (Tylenol) 650 mg Q4H PRN ORAL Mild Pain/Temp > 100.5 10/05/18 18:00 11/02/18 17:59 10/07/18 13:07 Albuterol/ Ipratropium (Albuterol/ Ipratropium) 3 ml Q4H PRN HHN Shortness of Breath 10/03/18 17:30 10/08/18 17:29 Aspirin (Ecotrin) 81 mg DAILY ORAL 10/05/18 09:00 11/04/18 08:59 10/07/18 08:32 Atorvastatin Calcium (Lipitor) 40 mg BEDTIME ORAL 10/04/18 21:00 11/03/18 20:59 10/07/18 21:39 Clonidine HCl (Catapres Tab) 0.1 mg Q4H PRN ORAL sbp more than 160 10/03/18 17:30 11/02/18 17:29 10/07/18 00:05 Dextrose (Dextrose 50%) 25 ml Q30M PRN IV Hypoglycemia 10/03/18 17:30 11/02/18 17:29 Dextrose (Dextrose 50%) 50 ml Q30M PRN IV Hypoglycemia 10/03/18 17:30 11/02/18 17:29 Fentanyl Citrate (Sublimaze 100 mcg/2 mL) 25 mcg Q10M PRN IV Moderate Pain (Pain Scale 4-6) 10/08/18 08:45 10/08/18 14:00 Gabapentin (Neurontin) 600 mg THREE TIMES A DAY ORAL 10/03/18 18:00 11/02/18 17:59 10/08/18 12:18 Insulin Aspart (NovoLOG) BEFORE MEALS AND HS SUBQ 10/03/18 21:00 11/02/18 20:59 10/08/18 12:19 Iron Sucrose 100 mg/Sodium Chloride 60 ml @ 240 mls/hr BEDTIME IV 10/06/18 21:00 10/10/18 21:14 10/07/18 21:38 Lisinopril (Prinivil) 20 mg DAILY ORAL 10/05/18 09:00 11/04/18 08:59 10/07/18 08:32 Metformin HCl (Glucophage) 1,000 mg BID ORAL 10/05/18 09:30 11/04/18 09:29 10/07/18 08:32 Morphine Sulfate (Morphine Sulfate) 2 mg Q4H PRN IVP severe pain 7-10 10/03/18 17:30 10/10/18 17:29 Nitroglycerin (Ntg) 0.4 mg Q5M X 3 DOSES PRN SL Prn Chest Pain 10/03/18 17:30 11/02/18 17:29 Ondansetron HCl (Zofran) 4 mg Q1H PRN IVP Nausea & Vomiting 10/08/18 08:45 10/08/18 14:00 Ondansetron HCl (Zofran) 4 mg Q6H PRN IVP Nausea & Vomiting 10/03/18 17:30 11/02/18 17:29 Polyethylene Glycol (Miralax) 17 gm HSPRN PRN ORAL Constipation 10/03/18 17:30 11/02/18 17:29 Temazepam (Restoril) 15 mg HSPRN PRN ORAL Insomnia 10/03/18 17:30 10/10/18 17:29 10/07/18 22:41 Luiz Briceno MD Oct 08, 2018 13:12
--- NOTE | 2018-10-08 13:51 | NUR ---
RD ASSESSMENT & RECOMMENDATIONS SEE CARE ACTIVITY FOR COMPLETE ASSESSMENT DAILY ESTIMATED NEEDS: Needs based on Cardiac, DM/ 60kg abw 25-30 kcals/kg 6234-0751 total kcals 1-1.3 g protein/kg 60-78 g total protein 25-30 mL/kg 7976-5660 total fluid mLs NUTRITION DIAGNOSIS: Altered nutrition related lab values R/T diabetes, HTN as evidenced by A1C of 6.9, elev BPs, on BP lowering meds. CURRENT DIET:CCHO LOW PO DIET RECOMMENDATIONS: CCHO LOW, LOW NA/ texture as tolerated ADDITIONAL RECOMMENDATIONS: * Standing wt for accurate CBW * MVI x 1, Vit C 500mg QD, and Yasmani 1pkt BID for surgical wound healing
--- NOTE | 2018-10-08 14:59 | Surgery Progress Note ---
Surgery Progress Note Subjective Additional Comments no acute events. doing well. headache resolved. no n/v/f/c. tolerating diet. Objective Last 24 Hour Vital Signs Date Time Temp Pulse Resp B/P (MAP) Pulse Ox O2 Delivery O2 Flow Rate FiO2 10/08/18 12:00 90 10/08/18 12:00 97.6 85 20 134/70 (91) 98 10/08/18 09:54 84 20 98 10/08/18 09:50 85 26 153/72 97 Room Air 10/08/18 09:30 90 19 169/85 99 Room Air 10/08/18 09:20 92 18 166/80 100 Nasal Cannula 3 10/08/18 09:15 94 20 171/82 100 Nasal Cannula 3 89 10/08/18 09:10 97.8 89 48 145/80 100 Nasal Cannula 3 89 10/08/18 09:09 82 20 98 10/08/18 09:00 Room Air 10/08/18 08:24 72 18 97 Room Air 21 10/08/18 08:00 83 10/08/18 08:00 97.9 77 18 135/65 (88) 100 10/08/18 04:00 83 10/08/18 04:00 97.7 86 18 120/70 (87) 99 10/08/18 00:00 97.2 81 19 113/69 (84) 97 10/08/18 00:00 78 10/07/18 21:00 Room Air 10/07/18 20:50 70 18 97 Room Air 21 10/07/18 20:00 81 10/07/18 20:00 97.7 84 19 116/67 (83) 97 10/07/18 16:00 105 10/07/18 16:00 98.0 80 18 139/67 (91) 97 I&O Intake and Output 10/07/18 10/08/18 18:59 06:59 Intake Total 490 ml 180 ml Output Total 1 ml Balance 489 ml 180 ml Intake Oral 490 ml 120 ml IV Total 60 ml Output Urine Total 1 ml # Voids 2 3 Dressing: saturated Wound: other Drains: other Cardiovascular: RSR Respiratory: clear Abdomen: soft, flat, non-tender, present bowel sounds, other, non-distended Extremities: no tenderness, no cyanosis Laboratory Tests Test 10/08/18 05:37 White Blood Count 3.3 K/UL (4.8-10.8) L Red Blood Count 3.91 M/UL (4.20-5.40) L Hemoglobin 11.0 G/DL (12.0-16.0) L Hematocrit 33.2 % (37.0-47.0) L Mean Corpuscular Volume 85 FL (80-99) Mean Corpuscular Hemoglobin 28.2 PG (27.0-31.0) Mean Corpuscular Hemoglobin Concent 33.2 G/DL (32.0-36.0) Red Cell Distribution Width 14.4 % (11.6-14.8) Platelet Count 112 K/UL (150-450) L Mean Platelet Volume 6.8 FL (6.5-10.1) Neutrophils (%) (Auto) % (45.0-75.0) Lymphocytes (%) (Auto) % (20.0-45.0) Monocytes (%) (Auto) % (1.0-10.0) Eosinophils (%) (Auto) % (0.0-3.0) Basophils (%) (Auto) % (0.0-2.0) Differential Total Cells Counted 100 Neutrophils % (Manual) 69 % (45-75) Lymphocytes % (Manual) 21 % (20-45) Monocytes % (Manual) 7 % (1-10) Eosinophils % (Manual) 2 % (0-3) Basophils % (Manual) 1 % (0-2) Band Neutrophils 0 % (0-8) Platelet Estimate Decreased L Platelet Morphology Normal Prothrombin Time 10.9 SEC (9.30-11.50) Prothromb Time International Ratio 1.0 (0.9-1.1) Activated Partial Thromboplast Time 27 SEC (23-33) Sodium Level 142 MMOL/L (136-145) Potassium Level 3.9 MMOL/L (3.5-5.1) Chloride Level 106 MMOL/L (98-107) Carbon Dioxide Level 28 MMOL/L (21-32) Anion Gap 8 mmol/L (5-15) Blood Urea Nitrogen 8 mg/dL (7-18) Creatinine 0.5 MG/DL (0.55-1.30) L Estimat Glomerular Filtration Rate > 60 mL/min (>60) Glucose Level 119 MG/DL (74-106) H Calcium Level 9.4 MG/DL (8.5-10.1) Plan Problems: (1) Surgical wound dehiscence Assessment & Plan: This is a 68-year-old female who was recently gone to [place] approximately 20 days ago for ventral hernia repair. He is unaware of the exact repair that was performed and if mesh was or was not used. Patient now presents with shortness of breath and discomfort. On admission noted to have midline wound dehiscence with sutures present. On evaluation patient has a 3 cm x 3 cm dehisced midline wound with unknown depth. Difficult to discern if there is underlying mesh or not. Ultimately 3 nonabsorbable sutures are identified within the subcutis tissue and unsure if these are related to mesh placement of a possible overlay or not. Minimal erythema nontender no drainage. Patient is a diabetic. Patient denies any complaints from the wound. Given recent surgical intervention in [place] there is significant concern of potential underlying wound pathology. Recommend CT abdomen and pelvis to evaluate for potential mesh placement seroma or bowel or other of normality within the repaired hernia. CT results Impression: Evidence of prior anterior abdominal wall hernia repair with mesh in place. There are some adjacent inflammatory changes, not unexpected if surgery was fairly recent. No evidence of fluid collection or other significant complication Evidence of hepatic cirrhosis. Evidence of portal hypertension, with fairly extensive perigastric varices and splenomegaly Gallbladder wall thickening and pericholecystic inflammation. Probably secondary to the above-mentioned portal hypertension. Acalculous acute cholecystitis or acute cholecystitis due to occult stones less likely but also possible, and consideration should be given to hepatobiliary nuclear scan if there is high clinical suspicion Mild infiltration of the mesenteric root caudad to the pancreas. Probably congestion secondary to portal hypertension but inflammatory process also possible Other findings as noted, including lipomatous hypertrophy of the ileocecal valve , duodenal diverticulum, degenerative spondylosis Sutures removed from midline wound as they were non absorbable to causing foreign body effect. the midline wound from hernia repair seems to have area of non viable tissue. cannot clearly understand how repair was done but seems as if flap of tissue was used to cover mesh and flap may not have viability. some bleeding from periphery noted. area 2cm x 2cm that may demarcate. will monitor now that sutures are out Okay for diet We will continue to monitor Local wound care with plans for outpatient wound care upon discharge no acute surgical intervention planned. Thank you for allowing me to participate in patient's care (2) Surgical wound, non healing (3) CHF (congestive heart failure) (4) Chest tightness (5) Episode of generalized weakness Marlon Miles Oct 08, 2018 14:59
--- NOTE | 2018-10-08 15:16 | General Progress Note ---
Assessment/Plan Problem List: (1) UTI (urinary tract infection) ICD Codes: N39.0 - Urinary tract infection, site not specified SNOMED: 44000952 (2) Pancytopenia ICD Codes: D61.818 - Other pancytopenia SNOMED: 540021757 (3) HTN (hypertension) ICD Codes: I10 - Essential (primary) hypertension SNOMED: 38420193 (4) Anemia ICD Codes: D64.9 - Anemia, unspecified SNOMED: 862765806 (5) Chest tightness ICD Codes: R07.89 - Other chest pain SNOMED: 81163664 (6) CHF (congestive heart failure) ICD Codes: I50.9 - Heart failure, unspecified SNOMED: 20753920 (7) Episode of generalized weakness ICD Codes: R53.1 - Weakness SNOMED: 65031272 Status: stable, progressing, unchanged Assessment/Plan: pt diet abx cardio gi heme f/u cbc bmp am pending egd Subjective Constitutional: Reports: weakness Allergies: Coded Allergies: PENICILLINS (Verified Allergy, Severe, anaphalaxtic, 10/03/18) All Systems: reviewed and negative except above Subjective sl dizzy Objective Last 24 Hour Vital Signs Date Time Temp Pulse Resp B/P (MAP) Pulse Ox O2 Delivery O2 Flow Rate FiO2 10/08/18 12:00 90 10/08/18 12:00 97.6 85 20 134/70 (91) 98 10/08/18 09:54 84 20 98 10/08/18 09:50 85 26 153/72 97 Room Air 10/08/18 09:30 90 19 169/85 99 Room Air 10/08/18 09:20 92 18 166/80 100 Nasal Cannula 3 10/08/18 09:15 94 20 171/82 100 Nasal Cannula 3 89 10/08/18 09:10 97.8 89 48 145/80 100 Nasal Cannula 3 89 10/08/18 09:09 82 20 98 10/08/18 09:00 Room Air 10/08/18 08:24 72 18 97 Room Air 21 10/08/18 08:00 83 10/08/18 08:00 97.9 77 18 135/65 (88) 100 10/08/18 04:00 83 10/08/18 04:00 97.7 86 18 120/70 (87) 99 10/08/18 00:00 97.2 81 19 113/69 (84) 97 10/08/18 00:00 78 10/07/18 21:00 Room Air 10/07/18 20:50 70 18 97 Room Air 21 10/07/18 20:00 81 10/07/18 20:00 97.7 84 19 116/67 (83) 97 10/07/18 16:00 105 10/07/18 16:00 98.0 80 18 139/67 (91) 97 Intake and Output 10/07/18 10/08/18 19:00 07:00 Intake Total 490 ml 180 ml Output Total 1 ml Balance 489 ml 180 ml Intake Oral 490 ml 120 ml IV Total 60 ml Output Urine Total 1 ml # Voids 2 3 Laboratory Tests 10/08/18 05:37: White Blood Count 3.3L, Red Blood Count 3.91L, Hemoglobin 11.0L, Hematocrit 33.2L, Mean Corpuscular Volume 85, Mean Corpuscular Hemoglobin 28.2, Mean Corpuscular Hemoglobin Concent 33.2, Red Cell Distribution Width 14.4, Platelet Count 112L, Mean Platelet Volume 6.8, Neutrophils (%) (Auto) , Lymphocytes (%) ( Auto) , Monocytes (%) (Auto) , Eosinophils (%) (Auto) , Basophils (%) (Auto) , Differential Total Cells Counted 100, Neutrophils % (Manual) 69, Lymphocytes % ( Manual) 21, Monocytes % (Manual) 7, Eosinophils % (Manual) 2, Basophils % ( Manual) 1, Band Neutrophils 0, Platelet Estimate DecreasedL, Platelet Morphology Normal, Prothrombin Time 10.9, Prothromb Time International Ratio 1.0 , Activated Partial Thromboplast Time 27, Sodium Level 142, Potassium Level 3.9 , Chloride Level 106, Carbon Dioxide Level 28, Anion Gap 8, Blood Urea Nitrogen 8, Creatinine 0.5L, Estimat Glomerular Filtration Rate > 60, Glucose Level 119H , Calcium Level 9.4 Height (Feet): 5 Height (Inches): 3.00 Weight (Pounds): 185 General Appearance: lethargic EENT: normal ENT inspection Neck: normal alignment Cardiovascular: normal peripheral pulses, normal rate, regular rhythm Respiratory/Chest: chest wall non-tender, lungs clear, normal breath sounds Abdomen: normal bowel sounds, non tender, soft Extremities: normal inspection Edema: no edema noted Arm (L), no edema noted Arm (R), no edema noted Leg (L), no edema noted Leg (R), no edema noted Pedal (L), no edema noted Pedal (R), no edema noted Generalized Neurologic: motor weakness Skin: normal pigmentation, warm/dry Donovan Francois DO Oct 08, 2018 15:16
--- NOTE | 2018-10-08 16:33 | Cardiac Electrophysiology PN ---
Assessment/Plan Assessment/Plan 1. Shortness of breath and mildly elevated D-dimer. Lower extremity duplex, no evidence of DVT. Currently, she is not short of breath.No KS Echo Nl EF. 2. Hypertension, on lisinopril 20 mg daily and prn clonidine. 3. Hyperlipidemia, on Lipitor. 4. Uncontrolled diabetes, on insulin. 5. Chest pain. Ruled out for KS. ECG Nl. Stress test showed no ischemia 6. CT abdomen showed Hepatic cirrhosis and portal hypertension, with fairly extensive perigastric varices and splenomegaly EGD per Dr Jarvis no varices DW RN Subjective Subjective No CP or SOB.Had EGD today that showed gastritis but no varices Objective Last 24 Hour Vital Signs Date Time Temp Pulse Resp B/P (MAP) Pulse Ox O2 Delivery O2 Flow Rate FiO2 10/08/18 12:00 90 10/08/18 12:00 97.6 85 20 134/70 (91) 98 10/08/18 09:54 84 20 98 10/08/18 09:50 85 26 153/72 97 Room Air 10/08/18 09:30 90 19 169/85 99 Room Air 10/08/18 09:20 92 18 166/80 100 Nasal Cannula 3 10/08/18 09:15 94 20 171/82 100 Nasal Cannula 3 89 10/08/18 09:10 97.8 89 48 145/80 100 Nasal Cannula 3 89 10/08/18 09:09 82 20 98 10/08/18 09:00 Room Air 10/08/18 08:24 72 18 97 Room Air 21 10/08/18 08:00 83 10/08/18 08:00 97.9 77 18 135/65 (88) 100 10/08/18 04:00 83 10/08/18 04:00 97.7 86 18 120/70 (87) 99 10/08/18 00:00 97.2 81 19 113/69 (84) 97 10/08/18 00:00 78 10/07/18 21:00 Room Air 10/07/18 20:50 70 18 97 Room Air 21 10/07/18 20:00 81 10/07/18 20:00 97.7 84 19 116/67 (83) 97 Intake and Output 10/07/18 10/08/18 19:00 07:00 Intake Total 490 ml 180 ml Output Total 1 ml Balance 489 ml 180 ml Intake Oral 490 ml 120 ml IV Total 60 ml Output Urine Total 1 ml # Voids 2 3 Laboratory Tests Test 10/08/18 05:37 White Blood Count 3.3 K/UL (4.8-10.8) L Red Blood Count 3.91 M/UL (4.20-5.40) L Hemoglobin 11.0 G/DL (12.0-16.0) L Hematocrit 33.2 % (37.0-47.0) L Mean Corpuscular Volume 85 FL (80-99) Mean Corpuscular Hemoglobin 28.2 PG (27.0-31.0) Mean Corpuscular Hemoglobin Concent 33.2 G/DL (32.0-36.0) Red Cell Distribution Width 14.4 % (11.6-14.8) Platelet Count 112 K/UL (150-450) L Mean Platelet Volume 6.8 FL (6.5-10.1) Neutrophils (%) (Auto) % (45.0-75.0) Lymphocytes (%) (Auto) % (20.0-45.0) Monocytes (%) (Auto) % (1.0-10.0) Eosinophils (%) (Auto) % (0.0-3.0) Basophils (%) (Auto) % (0.0-2.0) Differential Total Cells Counted 100 Neutrophils % (Manual) 69 % (45-75) Lymphocytes % (Manual) 21 % (20-45) Monocytes % (Manual) 7 % (1-10) Eosinophils % (Manual) 2 % (0-3) Basophils % (Manual) 1 % (0-2) Band Neutrophils 0 % (0-8) Platelet Estimate Decreased L Platelet Morphology Normal Prothrombin Time 10.9 SEC (9.30-11.50) Prothromb Time International Ratio 1.0 (0.9-1.1) Activated Partial Thromboplast Time 27 SEC (23-33) Sodium Level 142 MMOL/L (136-145) Potassium Level 3.9 MMOL/L (3.5-5.1) Chloride Level 106 MMOL/L (98-107) Carbon Dioxide Level 28 MMOL/L (21-32) Anion Gap 8 mmol/L (5-15) Blood Urea Nitrogen 8 mg/dL (7-18) Creatinine 0.5 MG/DL (0.55-1.30) L Estimat Glomerular Filtration Rate > 60 mL/min (>60) Glucose Level 119 MG/DL (74-106) H Calcium Level 9.4 MG/DL (8.5-10.1) Objective HEENT: Head and neck showed no JVD or carotid bruits. LUNGS: Clear. CARDIOVASCULAR: Regular S1 and S2 with no gallop or murmur. ABDOMEN: Soft. EXTREMITIES: No pitting edema. Denzel Castillo MD Oct 08, 2018 16:33
--- NOTE | 2018-10-08 18:29 | General Progress Note ---
Assessment/Plan Problem List: (1) Diabetes mellitus ICD Codes: E11.9 - Type 2 diabetes mellitus without complications SNOMED: 60339431 (2) CHF (congestive heart failure) ICD Codes: I50.9 - Heart failure, unspecified SNOMED: 09512529 (3) Chest tightness ICD Codes: R07.89 - Other chest pain SNOMED: 89436196 (4) Episode of generalized weakness ICD Codes: R53.1 - Weakness SNOMED: 47389333 (5) HTN (hypertension) ICD Codes: I10 - Essential (primary) hypertension SNOMED: 78134738 Status: stable, progressing, unchanged Assessment/Plan: continue Metformin 1000 mg bid add Januvia 1000 mg daily no need for scheduled basal / bolus insulin for now continue NISS ac / hs Subjective Allergies: Coded Allergies: PENICILLINS (Verified Allergy, Severe, anaphalaxtic, 10/03/18) All Systems: reviewed and negative except above Subjective events noted family at bedside Item Value Date Time Bedside Blood Glucose 191 mg/dl H 10/08/18 1729 Bedside Blood Glucose 151 mg/dl H 10/08/18 1219 Bedside Blood Glucose 118 mg/dl 10/08/18 0630 Bedside Blood Glucose 161 mg/dl H 10/07/18 2139 Objective Last 24 Hour Vital Signs Date Time Temp Pulse Resp B/P (MAP) Pulse Ox O2 Delivery O2 Flow Rate FiO2 10/08/18 16:00 97.5 86 18 150/73 (98) 96 10/08/18 16:00 87 10/08/18 12:00 90 10/08/18 12:00 97.6 85 20 134/70 (91) 98 10/08/18 09:54 84 20 98 10/08/18 09:50 85 26 153/72 97 Room Air 10/08/18 09:30 90 19 169/85 99 Room Air 10/08/18 09:20 92 18 166/80 100 Nasal Cannula 3 10/08/18 09:15 94 20 171/82 100 Nasal Cannula 3 89 10/08/18 09:10 97.8 89 48 145/80 100 Nasal Cannula 3 89 10/08/18 09:09 82 20 98 10/08/18 09:00 Room Air 10/08/18 08:24 72 18 97 Room Air 21 10/08/18 08:00 83 10/08/18 08:00 97.9 77 18 135/65 (88) 100 10/08/18 04:00 83 10/08/18 04:00 97.7 86 18 120/70 (87) 99 10/08/18 00:00 97.2 81 19 113/69 (84) 97 10/08/18 00:00 78 10/07/18 21:00 Room Air 10/07/18 20:50 70 18 97 Room Air 21 10/07/18 20:00 81 10/07/18 20:00 97.7 84 19 116/67 (83) 97 Intake and Output 10/07/18 10/08/18 19:00 07:00 Intake Total 490 ml 180 ml Output Total 1 ml Balance 489 ml 180 ml Intake Oral 490 ml 120 ml IV Total 60 ml Output Urine Total 1 ml # Voids 2 3 Laboratory Tests 10/08/18 05:37: White Blood Count 3.3L, Red Blood Count 3.91L, Hemoglobin 11.0L, Hematocrit 33.2L, Mean Corpuscular Volume 85, Mean Corpuscular Hemoglobin 28.2, Mean Corpuscular Hemoglobin Concent 33.2, Red Cell Distribution Width 14.4, Platelet Count 112L, Mean Platelet Volume 6.8, Neutrophils (%) (Auto) , Lymphocytes (%) ( Auto) , Monocytes (%) (Auto) , Eosinophils (%) (Auto) , Basophils (%) (Auto) , Differential Total Cells Counted 100, Neutrophils % (Manual) 69, Lymphocytes % ( Manual) 21, Monocytes % (Manual) 7, Eosinophils % (Manual) 2, Basophils % ( Manual) 1, Band Neutrophils 0, Platelet Estimate DecreasedL, Platelet Morphology Normal, Prothrombin Time 10.9, Prothromb Time International Ratio 1.0 , Activated Partial Thromboplast Time 27, Sodium Level 142, Potassium Level 3.9 , Chloride Level 106, Carbon Dioxide Level 28, Anion Gap 8, Blood Urea Nitrogen 8, Creatinine 0.5L, Estimat Glomerular Filtration Rate > 60, Glucose Level 119H , Calcium Level 9.4 Height (Feet): 5 Height (Inches): 3.00 Weight (Pounds): 185 General Appearance: no apparent distress Neck: normal alignment Cardiovascular: normal rate Respiratory/Chest: chest wall non-tender, lungs clear Abdomen: normal bowel sounds Pelvis: normal external exam Objective Current Medications Medications (Trade) Dose Ordered Sig/Shila Route PRN Reason Start Time Stop Time Status Last Admin Dose Admin Acetaminophen (Tylenol) 650 mg Q4H PRN ORAL Mild Pain/Temp > 100.5 10/05/18 18:00 11/02/18 17:59 10/07/18 13:07 Aspirin (Ecotrin) 81 mg DAILY ORAL 10/05/18 09:00 11/04/18 08:59 10/07/18 08:32 Atorvastatin Calcium (Lipitor) 40 mg BEDTIME ORAL 10/04/18 21:00 11/03/18 20:59 10/07/18 21:39 Clonidine HCl (Catapres Tab) 0.1 mg Q4H PRN ORAL sbp more than 160 10/03/18 17:30 11/02/18 17:29 10/07/18 00:05 Dextrose (Dextrose 50%) 25 ml Q30M PRN IV Hypoglycemia 10/03/18 17:30 11/02/18 17:29 Dextrose (Dextrose 50%) 50 ml Q30M PRN IV Hypoglycemia 10/03/18 17:30 11/02/18 17:29 Gabapentin (Neurontin) 600 mg THREE TIMES A DAY ORAL 10/03/18 18:00 11/02/18 17:59 10/08/18 17:24 Insulin Aspart (NovoLOG) BEFORE MEALS AND HS SUBQ 10/03/18 21:00 11/02/18 20:59 10/08/18 17:29 Iron Sucrose 100 mg/Sodium Chloride 60 ml @ 240 mls/hr BEDTIME IV 10/06/18 21:00 10/10/18 21:14 10/07/18 21:38 Lisinopril (Prinivil) 20 mg DAILY ORAL 10/05/18 09:00 11/04/18 08:59 10/07/18 08:32 Metformin HCl (Glucophage) 1,000 mg BID ORAL 10/05/18 09:30 11/04/18 09:29 10/07/18 08:32 Morphine Sulfate (Morphine Sulfate) 2 mg Q4H PRN IVP severe pain 7-10 10/03/18 17:30 10/10/18 17:29 Nitroglycerin (Ntg) 0.4 mg Q5M X 3 DOSES PRN SL Prn Chest Pain 10/03/18 17:30 11/02/18 17:29 Ondansetron HCl (Zofran) 4 mg Q6H PRN IVP Nausea & Vomiting 10/03/18 17:30 11/02/18 17:29 Polyethylene Glycol (Miralax) 17 gm HSPRN PRN ORAL Constipation 10/03/18 17:30 11/02/18 17:29 Temazepam (Restoril) 15 mg HSPRN PRN ORAL Insomnia 10/03/18 17:30 10/10/18 17:29 10/07/18 22:41 Jim Allred MD Oct 08, 2018 18:29
--- NOTE | 2018-10-08 19:20 | NUR ---
HAND-OFF: Report given to FUNMILAYO Dumas. No acute s/s of distress noted.
[2018-10-08] MEDS: Atorvastatin 20mg tab ORAL SCH (21:43)
[2018-10-08] MEDS: Iron Sucrose 100 MG in NS 55 ML IV SCH (21:47)
[2018-10-09] VITALS: BP 127/87
--- NOTE | 2018-10-09 | NUR ---
NURSE NOTES: pt sleeping no change in condition. will continue to monitor for any change in condition.
[2018-10-09 04:00] VITALS: BP 113/60
--- NOTE | 2018-10-09 04:00 | NUR ---
NURSE NOTES: no acute distress noted. no change in condition. will continue to monitor for change in condition.
[2018-10-09] MEDS: NovoLOG Insulin Flexpen SUBQ SCH ×4 (06:00→21:12)
--- NOTE | 2018-10-09 06:45 | General Progress Note ---
Assessment/Plan Problem List: (1) Diabetes mellitus ICD Codes: E11.9 - Type 2 diabetes mellitus without complications SNOMED: 68769233 (2) CHF (congestive heart failure) ICD Codes: I50.9 - Heart failure, unspecified SNOMED: 72822964 (3) Chest tightness ICD Codes: R07.89 - Other chest pain SNOMED: 39820634 (4) Episode of generalized weakness ICD Codes: R53.1 - Weakness SNOMED: 67621535 (5) HTN (hypertension) ICD Codes: I10 - Essential (primary) hypertension SNOMED: 31532416 Status: stable, progressing, unchanged Assessment/Plan: continue Metformin 1000 mg bid continue Januvia 1000 mg daily no need for scheduled basal / bolus insulin for now continue NISS ac / hs Subjective Allergies: Coded Allergies: PENICILLINS (Verified Allergy, Severe, anaphalaxtic, 10/03/18) All Systems: reviewed and negative except above Subjective events noted Item Value Date Time Bedside Blood Glucose 131 mg/dl H 10/09/18 0600 Bedside Blood Glucose 113 mg/dl 10/08/18 2223 Bedside Blood Glucose 191 mg/dl H 10/08/18 1729 Bedside Blood Glucose 151 mg/dl H 10/08/18 1219 Bedside Blood Glucose 118 mg/dl 10/08/18 0630 Objective Last 24 Hour Vital Signs Date Time Temp Pulse Resp B/P (MAP) Pulse Ox O2 Delivery O2 Flow Rate FiO2 10/09/18 04:00 75 10/09/18 04:00 97.3 73 28 113/60 (77) 97 10/09/18 00:00 83 10/09/18 00:00 97.5 80 18 127/87 (100) 98 10/08/18 21:00 Room Air 10/08/18 20:52 86 18 96 Room Air 21 10/08/18 20:00 98.9 85 18 157/73 (101) 99 10/08/18 16:00 97.5 86 18 150/73 (98) 96 10/08/18 16:00 87 10/08/18 12:00 90 10/08/18 12:00 97.6 85 20 134/70 (91) 98 10/08/18 09:54 84 20 98 10/08/18 09:50 85 26 153/72 97 Room Air 10/08/18 09:30 90 19 169/85 99 Room Air 10/08/18 09:20 92 18 166/80 100 Nasal Cannula 3 10/08/18 09:15 94 20 171/82 100 Nasal Cannula 3 89 10/08/18 09:10 97.8 89 48 145/80 100 Nasal Cannula 3 89 10/08/18 09:09 82 20 98 10/08/18 09:00 Room Air 10/08/18 08:24 72 18 97 Room Air 21 10/08/18 08:00 83 10/08/18 08:00 97.9 77 18 135/65 (88) 100 Intake and Output 10/08/18 10/09/18 19:00 07:00 Intake Total 490 ml Balance 490 ml Intake Oral 240 ml IV Total 250 ml # Voids 2 Height (Feet): 5 Height (Inches): 3.00 Weight (Pounds): 185 General Appearance: no apparent distress Neck: normal alignment Cardiovascular: normal rate Respiratory/Chest: lungs clear Abdomen: normal bowel sounds Pelvis: normal external exam Objective Current Medications Medications (Trade) Dose Ordered Sig/Shila Route PRN Reason Start Time Stop Time Status Last Admin Dose Admin Acetaminophen (Tylenol) 650 mg Q4H PRN ORAL Mild Pain/Temp > 100.5 10/05/18 18:00 11/02/18 17:59 10/07/18 13:07 Aspirin (Ecotrin) 81 mg DAILY ORAL 10/05/18 09:00 11/04/18 08:59 10/07/18 08:32 Atorvastatin Calcium (Lipitor) 40 mg BEDTIME ORAL 10/04/18 21:00 11/03/18 20:59 10/08/18 21:43 Clonidine HCl (Catapres Tab) 0.1 mg Q4H PRN ORAL sbp more than 160 10/03/18 17:30 11/02/18 17:29 10/07/18 00:05 Dextrose (Dextrose 50%) 25 ml Q30M PRN IV Hypoglycemia 10/03/18 17:30 11/02/18 17:29 Dextrose (Dextrose 50%) 50 ml Q30M PRN IV Hypoglycemia 10/03/18 17:30 11/02/18 17:29 Gabapentin (Neurontin) 600 mg THREE TIMES A DAY ORAL 10/03/18 18:00 11/02/18 17:59 10/08/18 17:24 Insulin Aspart (NovoLOG) BEFORE MEALS AND HS SUBQ 10/03/18 21:00 11/02/18 20:59 10/09/18 06:00 Iron Sucrose 100 mg/Sodium Chloride 60 ml @ 240 mls/hr BEDTIME IV 10/06/18 21:00 10/10/18 21:14 10/08/18 21:47 Lisinopril (Prinivil) 20 mg DAILY ORAL 10/05/18 09:00 11/04/18 08:59 10/07/18 08:32 Metformin HCl (Glucophage) 1,000 mg BID ORAL 10/05/18 09:30 11/04/18 09:29 10/07/18 08:32 Morphine Sulfate (Morphine Sulfate) 2 mg Q4H PRN IVP severe pain 7-10/03/18 17:30 10/10/18 17:29 Nitroglycerin (Ntg) 0.4 mg Q5M X 3 DOSES PRN SL Prn Chest Pain 10/03/18 17:30 11/02/18 17:29 Ondansetron HCl (Zofran) 4 mg Q6H PRN IVP Nausea & Vomiting 10/03/18 17:30 11/02/18 17:29 Polyethylene Glycol (Miralax) 17 gm HSPRN PRN ORAL Constipation 10/03/18 17:30 11/02/18 17:29 Sitagliptin Phosphate (Januvia) 100 mg ACBREAKFAST ORAL 10/09/18 06:30 11/08/18 06:29 10/09/18 06:00 Temazepam (Restoril) 15 mg HSPRN PRN ORAL Insomnia 10/03/18 17:30 10/10/18 17:29 10/08/18 21:42 Jim Allred MD Oct 09, 2018 06:45
--- NOTE | 2018-10-09 07:32 | NUR ---
HAND-OFF: Report given to Alaina Segura RN.
--- NOTE | 2018-10-09 07:33 | NUR ---
NURSE NOTES: Received report from FUNMILAYO Belle. The patient is sleeping on the bed without acute distress or shortness of breath. The patient's bed in the lowest position, call light in reach, and fall precaution reinforced. Will continue plan of care.
[2018-10-09 08:00] VITALS: BP 133/64
[2018-10-09 08:28] LABS: HEMATOCRIT 32.3 % (37.0-47.0); HEMOGLOBIN 10.8 G/DL (12.0-16.0); MEAN CORPUSCULAR VOLUME 84 FL (80-99); PLATELET COUNT 98 K/UL (150-450); RED BLOOD COUNT 3.85 M/UL (4.20-5.40); RED CELL DISTRIBUTION WIDTH 13.9 % (11.6-14.8); WHITE BLOOD COUNT 3.4 K/UL (4.8-10.8)
[2018-10-09] MEDS: Aspirin EC 81mg tab ORAL SCH (08:40)
[2018-10-09] MEDS: metFORMIN 500mg tab ORAL SCH ×2 (08:41→18:35)
[2018-10-09] MEDS: Lisinopril 20mg tab ORAL SCH (08:41)
[2018-10-09 08:48] LABS: ANION GAP 9 mmol/L (5-15); BLOOD UREA NITROGEN 8 mg/dL (7-18); CALCIUM 9.3 MG/DL (8.5-10.1); CARBON DIOXIDE 27 MMOL/L (21-32); CHLORIDE 107 MMOL/L (98-107); CREATININE 0.5 MG/DL (0.55-1.30); POTASSIUM 3.8 MMOL/L (3.5-5.1); SODIUM 143 MMOL/L (136-145)
--- NOTE | 2018-10-09 09:53 | GI Progress Note ---
Assessment/Plan Problems: (1) Diabetes mellitus ICD Codes: E11.9 - Type 2 diabetes mellitus without complications SNOMED: 59516012 (2) Pancytopenia ICD Codes: D61.818 - Other pancytopenia SNOMED: 995536977 (3) Anemia ICD Codes: D64.9 - Anemia, unspecified SNOMED: 822356044 (4) Surgical wound dehiscence ICD Codes: T81.31XA - Disruption of external operation (surgical) wound, not elsewhere classified, initial encounter SNOMED: 61299824 (5) Surgical wound, non healing ICD Codes: T81.89XA - Other complications of procedures, not elsewhere classified, initial encounter SNOMED: 948753144 Status: stable Status Narrative Discussed with Dr. Jarvis. Assessment/Plan Assessment - s/p ventral hernia repair - Failure of wound closure -Abdominal pelvis CT reviewed. s/p EGD SUMMARY OF FINDINGS: 1. No esophageal or obvious gastric varices. 2. Mild portal hypertensive gastropathy. 3. Inflammatory area in the prepyloric region, status post biopsy. okay for DC per GI standpoint Follow up biopsy results and treat accordingly. Surgical recommendations reviewed, no intervention at this time OB stool r/o GI bleed prn transfusions ppi follow labs The patient was seen and examined at bedside and all new and available data was reviewed in the patients chart. I agree with the above findings, impression and plan. (Patient seen earlier today. Signature stamp does not reflect patient encounter time.). - Star Jarvis MD Subjective Gastrointestinal/Abdominal: Reports: no symptoms Objective Last 24 Hour Vital Signs Date Time Temp Pulse Resp B/P (MAP) Pulse Ox O2 Delivery O2 Flow Rate FiO2 10/09/18 08:41 133/64 10/09/18 08:00 97.9 85 20 133/64 (87) 95 10/09/18 04:00 75 10/09/18 04:00 97.3 73 28 113/60 (77) 97 10/09/18 00:00 83 10/09/18 00:00 97.5 80 18 127/87 (100) 98 10/08/18 21:00 Room Air 10/08/18 20:52 86 18 96 Room Air 21 10/08/18 20:00 98.9 85 18 157/73 (101) 99 10/08/18 16:00 97.5 86 18 150/73 (98) 96 10/08/18 16:00 87 10/08/18 12:00 90 10/08/18 12:00 97.6 85 20 134/70 (91) 98 10/08/18 09:54 84 20 98 Intake and Output 10/08/18 10/09/18 19:00 07:00 Intake Total 490 ml 300 ml Balance 490 ml 300 ml Intake Oral 240 ml 300 ml IV Total 250 ml # Voids 2 2 Laboratory Tests Test 10/09/18 07:02 White Blood Count 3.4 K/UL (4.8-10.8) L Red Blood Count 3.85 M/UL (4.20-5.40) L Hemoglobin 10.8 G/DL (12.0-16.0) L Hematocrit 32.3 % (37.0-47.0) L Mean Corpuscular Volume 84 FL (80-99) Mean Corpuscular Hemoglobin 28.2 PG (27.0-31.0) Mean Corpuscular Hemoglobin Concent 33.5 G/DL (32.0-36.0) Red Cell Distribution Width 13.9 % (11.6-14.8) Platelet Count 98 K/UL (150-450) L Mean Platelet Volume 5.5 FL (6.5-10.1) L Neutrophils (%) (Auto) % (45.0-75.0) Lymphocytes (%) (Auto) % (20.0-45.0) Monocytes (%) (Auto) % (1.0-10.0) Eosinophils (%) (Auto) % (0.0-3.0) Basophils (%) (Auto) % (0.0-2.0) Neutrophils % (Manual) Pending Lymphocytes % (Manual) Pending Platelet Estimate Pending Platelet Morphology Pending Sodium Level 143 MMOL/L (136-145) Potassium Level 3.8 MMOL/L (3.5-5.1) Chloride Level 107 MMOL/L (98-107) Carbon Dioxide Level 27 MMOL/L (21-32) Anion Gap 9 mmol/L (5-15) Blood Urea Nitrogen 8 mg/dL (7-18) Creatinine 0.5 MG/DL (0.55-1.30) L Estimat Glomerular Filtration Rate > 60 mL/min (>60) Glucose Level 121 MG/DL (74-106) H Calcium Level 9.3 MG/DL (8.5-10.1) Height (Feet): 5 Height (Inches): 3.00 Weight (Pounds): 185 General Appearance: WD/WN, no apparent distress, alert Cardiovascular: normal rate Respiratory/Chest: normal breath sounds, no respiratory distress Abdominal Exam: normal bowel sounds, non tender, soft Extremities: normal range of motion, non-tender Bari Estrada NP Oct 09, 2018 09:53
--- NOTE | 2018-10-09 10:05 | Infectious Diseases Prog Note ---
Assessment/Plan Assessment/Plan The patient is a 68-year-old female who is afebrile, normal white blood cell, and scant cough appeared to be due to CHF, pulmonary congestion, doubt pneumonia. Cough No Fever No leukocytosis No SOB Abdominal hernia S/p Repair No sign of active infection. CT abd/pel - Evidence of prior anterior abdominal wall hernia repair with mesh in place. There are some adjacent inflammatory changes, not unexpected if surgery was fairly recent. No evidence of fluid collection or other significant complication Evidence of hepatic cirrhosis. Evidence of portal hypertension, with fairly extensive perigastric varices and splenomegaly Gallbladder wall thickening and pericholecystic inflammation. Probably secondary to the above-mentioned portal hypertension. Acalculous acute cholecystitis or acute cholecystitis due to occult stones less likely but also possible, and consideration should be given to hepatobiliary nuclear scan if there is high clinical suspicion Mild infiltration of the mesenteric root caudad to the pancreas. Probably congestion secondary to portal hypertension but inflammatory process also possible Other findings as noted, including lipomatous hypertrophy of the ileocecal valve, duodenal diverticulum, degenerative spondylosis PLAN: - Monitor the patient off of antibiotics. - Monitor CBC and BMP. - Monitor chest x-ray. Subjective Allergies: Coded Allergies: PENICILLINS (Verified Allergy, Severe, anaphalaxtic, 10/03/18) Subjective MARC Afebrile No leukocytosis Objective Vital Signs Last 24 Hour Vital Signs Date Time Temp Pulse Resp B/P (MAP) Pulse Ox O2 Delivery O2 Flow Rate FiO2 10/09/18 08:41 133/64 10/09/18 08:00 97.9 85 20 133/64 (87) 95 10/09/18 04:00 75 10/09/18 04:00 97.3 73 28 113/60 (77) 97 10/09/18 00:00 83 10/09/18 00:00 97.5 80 18 127/87 (100) 98 10/08/18 21:00 Room Air 10/08/18 20:52 86 18 96 Room Air 21 10/08/18 20:00 98.9 85 18 157/73 (101) 99 10/08/18 16:00 97.5 86 18 150/73 (98) 96 10/08/18 16:00 87 10/08/18 12:00 90 10/08/18 12:00 97.6 85 20 134/70 (91) 98 Height (Feet): 5 Height (Inches): 3.00 Weight (Pounds): 185 Objective GEN: NAD HEENT: NCAT, MMM, EOMI LUNGS: CTAB, No W HEART: RRR, S1, S2 Abd: Soft, NT, ND, Dehisced surgical site with no purulent drainage or cellulitis . Laboratory Tests Test 10/09/18 07:02 White Blood Count 3.4 K/UL (4.8-10.8) L Red Blood Count 3.85 M/UL (4.20-5.40) L Hemoglobin 10.8 G/DL (12.0-16.0) L Hematocrit 32.3 % (37.0-47.0) L Mean Corpuscular Volume 84 FL (80-99) Mean Corpuscular Hemoglobin 28.2 PG (27.0-31.0) Mean Corpuscular Hemoglobin Concent 33.5 G/DL (32.0-36.0) Red Cell Distribution Width 13.9 % (11.6-14.8) Platelet Count 98 K/UL (150-450) L Mean Platelet Volume 5.5 FL (6.5-10.1) L Neutrophils (%) (Auto) % (45.0-75.0) Lymphocytes (%) (Auto) % (20.0-45.0) Monocytes (%) (Auto) % (1.0-10.0) Eosinophils (%) (Auto) % (0.0-3.0) Basophils (%) (Auto) % (0.0-2.0) Neutrophils % (Manual) Pending Lymphocytes % (Manual) Pending Platelet Estimate Pending Platelet Morphology Pending Sodium Level 143 MMOL/L (136-145) Potassium Level 3.8 MMOL/L (3.5-5.1) Chloride Level 107 MMOL/L (98-107) Carbon Dioxide Level 27 MMOL/L (21-32) Anion Gap 9 mmol/L (5-15) Blood Urea Nitrogen 8 mg/dL (7-18) Creatinine 0.5 MG/DL (0.55-1.30) L Estimat Glomerular Filtration Rate > 60 mL/min (>60) Glucose Level 121 MG/DL (74-106) H Calcium Level 9.3 MG/DL (8.5-10.1) Current Medications Medications (Trade) Dose Ordered Sig/Shila Route PRN Reason Start Time Stop Time Status Last Admin Dose Admin Acetaminophen (Tylenol) 650 mg Q4H PRN ORAL Mild Pain/Temp > 100.5 10/05/18 18:00 11/02/18 17:59 10/07/18 13:07 Aspirin (Ecotrin) 81 mg DAILY ORAL 10/05/18 09:00 11/04/18 08:59 10/09/18 08:40 Atorvastatin Calcium (Lipitor) 40 mg BEDTIME ORAL 10/04/18 21:00 11/03/18 20:59 10/08/18 21:43 Clonidine HCl (Catapres Tab) 0.1 mg Q4H PRN ORAL sbp more than 160 10/03/18 17:30 11/02/18 17:29 10/07/18 00:05 Dextrose (Dextrose 50%) 25 ml Q30M PRN IV Hypoglycemia 10/03/18 17:30 11/02/18 17:29 Dextrose (Dextrose 50%) 50 ml Q30M PRN IV Hypoglycemia 10/03/18 17:30 11/02/18 17:29 Gabapentin (Neurontin) 600 mg THREE TIMES A DAY ORAL 10/03/18 18:00 11/02/18 17:59 10/09/18 08:41 Insulin Aspart (NovoLOG) BEFORE MEALS AND HS SUBQ 10/03/18 21:00 11/02/18 20:59 10/09/18 06:00 Iron Sucrose 100 mg/Sodium Chloride 60 ml @ 240 mls/hr BEDTIME IV 10/06/18 21:00 10/10/18 21:14 10/08/18 21:47 Lisinopril (Prinivil) 20 mg DAILY ORAL 10/05/18 09:00 11/04/18 08:59 10/09/18 08:41 Metformin HCl (Glucophage) 1,000 mg BID ORAL 10/05/18 09:30 11/04/18 09:29 10/09/18 08:41 Morphine Sulfate (Morphine Sulfate) 2 mg Q4H PRN IVP severe pain 7-10 10/03/18 17:30 10/10/18 17:29 Nitroglycerin (Ntg) 0.4 mg Q5M X 3 DOSES PRN SL Prn Chest Pain 10/03/18 17:30 11/02/18 17:29 Ondansetron HCl (Zofran) 4 mg Q6H PRN IVP Nausea & Vomiting 10/03/18 17:30 11/02/18 17:29 Polyethylene Glycol (Miralax) 17 gm HSPRN PRN ORAL Constipation 10/03/18 17:30 11/02/18 17:29 Sitagliptin Phosphate (Januvia) 100 mg ACBREAKFAST ORAL 10/09/18 06:30 11/08/18 06:29 10/09/18 06:00 Temazepam (Restoril) 15 mg HSPRN PRN ORAL Insomnia 10/03/18 17:30 10/10/18 17:29 10/08/18 21:42 Luiz Briceno MD Oct 09, 2018 10:05
--- NOTE | 2018-10-09 11:46 | Pulmonology Progress Note ---
Assessment/Plan Problems: (1) Portal hypertension (2) Advanced cirrhosis of liver (3) Generalized weakness (4) Diabetes mellitus (5) HTN (hypertension) (6) Anemia Assessment/Plan still dizzy when ealking pt/ot Echo reviewed stress study done, was negative monitor BP sliding scale diabetic diet EGD showed gastritis Subjective ROS Limited/Unobtainable: No Constitutional: Reports: no symptoms HEENT: Repors: no symptoms Respiratory: Reports: no symptoms Allergies: Coded Allergies: PENICILLINS (Verified Allergy, Severe, anaphalaxtic, 10/03/18) Objective Last 24 Hour Vital Signs Date Time Temp Pulse Resp B/P (MAP) Pulse Ox O2 Delivery O2 Flow Rate FiO2 10/09/18 08:41 133/64 10/09/18 08:00 97.9 85 20 133/64 (87) 95 10/09/18 04:00 75 10/09/18 04:00 97.3 73 28 113/60 (77) 97 10/09/18 00:00 83 10/09/18 00:00 97.5 80 18 127/87 (100) 98 10/08/18 21:00 Room Air 10/08/18 20:52 86 18 96 Room Air 21 10/08/18 20:00 98.9 85 18 157/73 (101) 99 10/08/18 16:00 97.5 86 18 150/73 (98) 96 10/08/18 16:00 87 10/08/18 12:00 90 10/08/18 12:00 97.6 85 20 134/70 (91) 98 Intake and Output 10/08/18 10/09/18 18:59 06:59 Intake Total 490 ml 300 ml Balance 490 ml 300 ml Intake Oral 240 ml 300 ml IV Total 250 ml # Voids 2 2 General Appearance: WD/WN HEENT: normocephalic, atraumatic Respiratory/Chest: chest wall non-tender, lungs clear Breasts: no masses Cardiovascular: normal rate Abdomen: normal bowel sounds, no organomegaly Genitourinary: normal external genitalia Skin: no rash Laboratory Tests 10/09/18 07:02: White Blood Count 3.4L, Red Blood Count 3.85L, Hemoglobin 10.8L, Hematocrit 32.3L, Mean Corpuscular Volume 84, Mean Corpuscular Hemoglobin 28.2, Mean Corpuscular Hemoglobin Concent 33.5, Red Cell Distribution Width 13.9, Platelet Count 98L, Mean Platelet Volume 5.5L, Neutrophils (%) (Auto) , Lymphocytes (%) ( Auto) , Monocytes (%) (Auto) , Eosinophils (%) (Auto) , Basophils (%) (Auto) , Neutrophils % (Manual) [Pending], Lymphocytes % (Manual) [Pending], Platelet Estimate [Pending], Platelet Morphology [Pending], Sodium Level 143, Potassium Level 3.8, Chloride Level 107, Carbon Dioxide Level 27, Anion Gap 9, Blood Urea Nitrogen 8, Creatinine 0.5L, Estimat Glomerular Filtration Rate > 60, Glucose Level 121H, Calcium Level 9.3 Current Medications Medications (Trade) Dose Ordered Sig/Shila Route PRN Reason Start Time Stop Time Status Last Admin Dose Admin Acetaminophen (Tylenol) 650 mg Q4H PRN ORAL Mild Pain/Temp > 100.5 10/05/18 18:00 11/02/18 17:59 10/07/18 13:07 Aspirin (Ecotrin) 81 mg DAILY ORAL 10/05/18 09:00 11/04/18 08:59 10/09/18 08:40 Atorvastatin Calcium (Lipitor) 40 mg BEDTIME ORAL 10/04/18 21:00 11/03/18 20:59 10/08/18 21:43 Clonidine HCl (Catapres Tab) 0.1 mg Q4H PRN ORAL sbp more than 160 10/03/18 17:30 11/02/18 17:29 10/07/18 00:05 Dextrose (Dextrose 50%) 25 ml Q30M PRN IV Hypoglycemia 10/03/18 17:30 11/02/18 17:29 Dextrose (Dextrose 50%) 50 ml Q30M PRN IV Hypoglycemia 10/03/18 17:30 11/02/18 17:29 Gabapentin (Neurontin) 600 mg THREE TIMES A DAY ORAL 10/03/18 18:00 11/02/18 17:59 10/09/18 08:41 Insulin Aspart (NovoLOG) BEFORE MEALS AND HS SUBQ 10/03/18 21:00 11/02/18 20:59 10/09/18 06:00 Iron Sucrose 100 mg/Sodium Chloride 60 ml @ 240 mls/hr BEDTIME IV 10/06/18 21:00 10/10/18 21:14 10/08/18 21:47 Lisinopril (Prinivil) 20 mg DAILY ORAL 10/05/18 09:00 11/04/18 08:59 10/09/18 08:41 Metformin HCl (Glucophage) 1,000 mg BID ORAL 10/05/18 09:30 11/04/18 09:29 10/09/18 08:41 Morphine Sulfate (Morphine Sulfate) 2 mg Q4H PRN IVP severe pain 7-10/03/18 17:30 10/10/18 17:29 Nitroglycerin (Ntg) 0.4 mg Q5M X 3 DOSES PRN SL Prn Chest Pain 10/03/18 17:30 11/02/18 17:29 Ondansetron HCl (Zofran) 4 mg Q6H PRN IVP Nausea & Vomiting 10/03/18 17:30 11/02/18 17:29 Polyethylene Glycol (Miralax) 17 gm HSPRN PRN ORAL Constipation 10/03/18 17:30 11/02/18 17:29 Sitagliptin Phosphate (Januvia) 100 mg ACBREAKFAST ORAL 10/09/18 06:30 11/08/18 06:29 10/09/18 06:00 Temazepam (Restoril) 15 mg HSPRN PRN ORAL Insomnia 10/03/18 17:30 10/10/18 17:29 10/08/18 21:42 Gabby Mayer MD Oct 09, 2018 11:46
--- NOTE | 2018-10-09 11:53 | General Progress Note ---
Assessment/Plan Problem List: (1) UTI (urinary tract infection) ICD Codes: N39.0 - Urinary tract infection, site not specified SNOMED: 51106602 (2) Pancytopenia ICD Codes: D61.818 - Other pancytopenia SNOMED: 001892986 (3) HTN (hypertension) ICD Codes: I10 - Essential (primary) hypertension SNOMED: 37297952 (4) Anemia ICD Codes: D64.9 - Anemia, unspecified SNOMED: 831335745 (5) Chest tightness ICD Codes: R07.89 - Other chest pain SNOMED: 88125721 (6) CHF (congestive heart failure) ICD Codes: I50.9 - Heart failure, unspecified SNOMED: 34943562 (7) Episode of generalized weakness ICD Codes: R53.1 - Weakness SNOMED: 66191619 Status: stable, progressing Assessment/Plan: pt diet abx cardio gi heme f/u cbc bmp am aru eval Subjective Constitutional: Reports: weakness Respiratory: Reports: shortness of breath Allergies: Coded Allergies: PENICILLINS (Verified Allergy, Severe, anaphalaxtic, 10/03/18) All Systems: reviewed and negative except above Subjective sl dizzy Objective Last 24 Hour Vital Signs Date Time Temp Pulse Resp B/P (MAP) Pulse Ox O2 Delivery O2 Flow Rate FiO2 10/09/18 08:41 133/64 10/09/18 08:00 97.9 85 20 133/64 (87) 95 10/09/18 04:00 75 10/09/18 04:00 97.3 73 28 113/60 (77) 97 10/09/18 00:00 83 10/09/18 00:00 97.5 80 18 127/87 (100) 98 10/08/18 21:00 Room Air 10/08/18 20:52 86 18 96 Room Air 21 10/08/18 20:00 98.9 85 18 157/73 (101) 99 10/08/18 16:00 97.5 86 18 150/73 (98) 96 10/08/18 16:00 87 10/08/18 12:00 90 10/08/18 12:00 97.6 85 20 134/70 (91) 98 Intake and Output 10/08/18 10/09/18 19:00 07:00 Intake Total 490 ml 300 ml Balance 490 ml 300 ml Intake Oral 240 ml 300 ml IV Total 250 ml # Voids 2 2 Laboratory Tests 10/09/18 07:02: White Blood Count 3.4L, Red Blood Count 3.85L, Hemoglobin 10.8L, Hematocrit 32.3L, Mean Corpuscular Volume 84, Mean Corpuscular Hemoglobin 28.2, Mean Corpuscular Hemoglobin Concent 33.5, Red Cell Distribution Width 13.9, Platelet Count 98L, Mean Platelet Volume 5.5L, Neutrophils (%) (Auto) , Lymphocytes (%) ( Auto) , Monocytes (%) (Auto) , Eosinophils (%) (Auto) , Basophils (%) (Auto) , Neutrophils % (Manual) [Pending], Lymphocytes % (Manual) [Pending], Platelet Estimate [Pending], Platelet Morphology [Pending], Sodium Level 143, Potassium Level 3.8, Chloride Level 107, Carbon Dioxide Level 27, Anion Gap 9, Blood Urea Nitrogen 8, Creatinine 0.5L, Estimat Glomerular Filtration Rate > 60, Glucose Level 121H, Calcium Level 9.3 Height (Feet): 5 Height (Inches): 3.00 Weight (Pounds): 185 General Appearance: lethargic EENT: normal ENT inspection Neck: normal alignment Cardiovascular: normal peripheral pulses, normal rate, regular rhythm Respiratory/Chest: chest wall non-tender, lungs clear, normal breath sounds Abdomen: normal bowel sounds, non tender, soft Extremities: normal inspection Edema: no edema noted Arm (L), no edema noted Arm (R), no edema noted Leg (L), no edema noted Leg (R), no edema noted Pedal (L), no edema noted Pedal (R), no edema noted Generalized Neurologic: responsive, motor weakness Skin: normal pigmentation, warm/dry Donovan Francois DO Oct 09, 2018 11:53
[2018-10-09 12:00] VITALS: BP 119/67
--- NOTE | 2018-10-09 13:40 | Surgery Progress Note ---
Surgery Progress Note Subjective Additional Comments no acute events. comfortable. headaches but stable. no nv/f/c. wound dressings changed. tolerating diet. Objective Last 24 Hour Vital Signs Date Time Temp Pulse Resp B/P (MAP) Pulse Ox O2 Delivery O2 Flow Rate FiO2 10/09/18 08:41 133/64 10/09/18 08:00 97.9 85 20 133/64 (87) 95 10/09/18 04:00 75 10/09/18 04:00 97.3 73 28 113/60 (77) 97 10/09/18 00:00 83 10/09/18 00:00 97.5 80 18 127/87 (100) 98 10/08/18 21:00 Room Air 10/08/18 20:52 86 18 96 Room Air 21 10/08/18 20:00 98.9 85 18 157/73 (101) 99 10/08/18 16:00 97.5 86 18 150/73 (98) 96 10/08/18 16:00 87 I&O Intake and Output 10/08/18 10/09/18 18:59 06:59 Intake Total 490 ml 300 ml Balance 490 ml 300 ml Intake Oral 240 ml 300 ml IV Total 250 ml # Voids 2 2 Dressing: saturated Wound: other Drains: other Respiratory: clear Abdomen: soft, distended, non-tender, present bowel sounds Extremities: no tenderness, no cyanosis Laboratory Tests Test 10/09/18 07:02 White Blood Count 3.4 K/UL (4.8-10.8) L Red Blood Count 3.85 M/UL (4.20-5.40) L Hemoglobin 10.8 G/DL (12.0-16.0) L Hematocrit 32.3 % (37.0-47.0) L Mean Corpuscular Volume 84 FL (80-99) Mean Corpuscular Hemoglobin 28.2 PG (27.0-31.0) Mean Corpuscular Hemoglobin Concent 33.5 G/DL (32.0-36.0) Red Cell Distribution Width 13.9 % (11.6-14.8) Platelet Count 98 K/UL (150-450) L Mean Platelet Volume 5.5 FL (6.5-10.1) L Neutrophils (%) (Auto) % (45.0-75.0) Lymphocytes (%) (Auto) % (20.0-45.0) Monocytes (%) (Auto) % (1.0-10.0) Eosinophils (%) (Auto) % (0.0-3.0) Basophils (%) (Auto) % (0.0-2.0) Differential Total Cells Counted 100 Neutrophils % (Manual) 68 % (45-75) Lymphocytes % (Manual) 24 % (20-45) Monocytes % (Manual) 6 % (1-10) Eosinophils % (Manual) 2 % (0-3) Basophils % (Manual) 0 % (0-2) Band Neutrophils 0 % (0-8) Platelet Estimate Decreased L Platelet Morphology Normal Hypochromasia 1+ Anisocytosis 1+ Sodium Level 143 MMOL/L (136-145) Potassium Level 3.8 MMOL/L (3.5-5.1) Chloride Level 107 MMOL/L (98-107) Carbon Dioxide Level 27 MMOL/L (21-32) Anion Gap 9 mmol/L (5-15) Blood Urea Nitrogen 8 mg/dL (7-18) Creatinine 0.5 MG/DL (0.55-1.30) L Estimat Glomerular Filtration Rate > 60 mL/min (>60) Glucose Level 121 MG/DL (74-106) H Calcium Level 9.3 MG/DL (8.5-10.1) Plan Problems: (1) Surgical wound dehiscence Assessment & Plan: This is a 68-year-old female who was recently gone to [place] approximately 20 days ago for ventral hernia repair. He is unaware of the exact repair that was performed and if mesh was or was not used. Patient now presents with shortness of breath and discomfort. On admission noted to have midline wound dehiscence with sutures present. On evaluation patient has a 3 cm x 3 cm dehisced midline wound with unknown depth. Difficult to discern if there is underlying mesh or not. Ultimately 3 nonabsorbable sutures are identified within the subcutis tissue and unsure if these are related to mesh placement of a possible overlay or not. Minimal erythema nontender no drainage. Patient is a diabetic. Patient denies any complaints from the wound. Given recent surgical intervention in [place] there is significant concern of potential underlying wound pathology. Recommend CT abdomen and pelvis to evaluate for potential mesh placement seroma or bowel or other of normality within the repaired hernia. CT results Impression: Evidence of prior anterior abdominal wall hernia repair with mesh in place. There are some adjacent inflammatory changes, not unexpected if surgery was fairly recent. No evidence of fluid collection or other significant complication Evidence of hepatic cirrhosis. Evidence of portal hypertension, with fairly extensive perigastric varices and splenomegaly Gallbladder wall thickening and pericholecystic inflammation. Probably secondary to the above-mentioned portal hypertension. Acalculous acute cholecystitis or acute cholecystitis due to occult stones less likely but also possible, and consideration should be given to hepatobiliary nuclear scan if there is high clinical suspicion Mild infiltration of the mesenteric root caudad to the pancreas. Probably congestion secondary to portal hypertension but inflammatory process also possible Other findings as noted, including lipomatous hypertrophy of the ileocecal valve , duodenal diverticulum, degenerative spondylosis Sutures removed from midline wound as they were non absorbable to causing foreign body effect. the midline wound from hernia repair seems to have area of non viable tissue. cannot clearly understand how repair was done but seems as if flap of tissue was used to cover mesh and flap may not have viability. some bleeding from periphery noted. area 2cm x 2cm that may demarcate. will monitor now that sutures are out Okay for diet We will continue to monitor Local wound care with plans for outpatient wound care upon discharge no acute surgical intervention planned. Thank you for allowing me to participate in patient's care (2) Surgical wound, non healing (3) CHF (congestive heart failure) (4) Chest tightness (5) Episode of generalized weakness Marlon Miles Oct 09, 2018 13:40
--- NOTE | 2018-10-09 13:50 | NUR ---
DISCHARGE PLANNING: NOTE CLINICALS FAXED TO [facility] FOR REVIEW
--- NOTE | 2018-10-09 15:14 | Hematology/Onc Progress Note ---
Assessment/Plan Assessment/Plan ASSESSMENT AND REC'S # Pancytopenia -- multiple etiologies could be related to underlying liver disease, + Splenomegaly. Cirrhosis+++ --> peripheral smear has been ordered --> Medications have been reviewed --> Continue to monitor for improvement, trend cbc --> Hep panel and HIV are negative --> US abd ordered to r/o cirrhosis and hepatosplenomegaly ++ Splenomegaly. --> Give neupogen if ANC <1000, reverse iso --> ok for ppx if plt >50k w/ either heparin or lovenox --> Transfuse if Plt < 20k and fever, or if Plt < 10k without fever --> will/have begun on iv iron and continue x 5 doses #. Liver Cirrhosis could be due to alcohol use or hepatitis --> US Abd reviewed --> order AFP level #. Surgical Wound-non healing -->S/p hernia surgery -recently --> Surgery is following f/u with wound pathology --> CT Abd reviewed. #. Diabetes The timing of this note does not necessarily reflect the time of the patient was seen. GREATLY APPRECIATE CONSULTATION. Subjective Constitutional: Denies: no symptoms, chills, fever, malaise, weakness, other HEENT: Denies: no symptoms, eye pain, blurred vision, tearing, double vision, ear pain, ear discharge, nose pain, nose congestion, throat pain, throat swelling, mouth pain, mouth swelling, other Cardiovascular: Denies: no symptoms, chest pain, edema, irregular heart rate, lightheadedness, palpitations, syncope, other Respiratory: Denies: no symptoms, cough, shortness of breath, SOB with excertion, SOB at rest, sputum, wheezing, other Gastrointestinal/Abdominal: Denies: no symptoms, abdomen distended, abdominal pain, black stools, tarry stools, blood in stool, constipated, diarrhea, difficulty swallowing, nausea, poor appetite, poor fluid intake, rectal bleeding , vomiting, other Genitourinary: Denies: no symptoms, burning, discharge, frequency, flank pain, hematuria, incontinence, pain, urgency, other Neurologic/Psychiatric: Denies: no symptoms, anxiety, depressed, emotional problems, headache, numbness, paresthesia, pre-existing deficit, seizure, tingling, tremors, weakness, other Endocrine: Denies: no symptoms, excessive sweating, flushing, intolerance to cold, intolerance to heat, increased hunger, increased thirst, increased urine, unexplained weight gain, unexplained weight loss, other Allergies: Coded Allergies: PENICILLINS (Verified Allergy, Severe, anaphalaxtic, 10/03/18) Subjective .: labs reviewed, relatively stable, anemia shows eusebio, and iv iron started 10/08: egd showed gastitis 10/09: labs reviewed, seen by gi, dc planning per pcp Objective Objective Current Medications Medications (Trade) Dose Ordered Sig/Shila Route PRN Reason Start Time Stop Time Status Last Admin Dose Admin Acetaminophen (Tylenol) 650 mg Q4H PRN ORAL Mild Pain/Temp > 100.5 10/05/18 18:00 11/02/18 17:59 10/07/18 13:07 Aspirin (Ecotrin) 81 mg DAILY ORAL 10/05/18 09:00 11/04/18 08:59 10/09/18 08:40 Atorvastatin Calcium (Lipitor) 40 mg BEDTIME ORAL 10/04/18 21:00 11/03/18 20:59 10/08/18 21:43 Clonidine HCl (Catapres Tab) 0.1 mg Q4H PRN ORAL sbp more than 160 10/03/18 17:30 11/02/18 17:29 10/07/18 00:05 Dextrose (Dextrose 50%) 25 ml Q30M PRN IV Hypoglycemia 10/03/18 17:30 11/02/18 17:29 Dextrose (Dextrose 50%) 50 ml Q30M PRN IV Hypoglycemia 10/03/18 17:30 11/02/18 17:29 Gabapentin (Neurontin) 600 mg THREE TIMES A DAY ORAL 10/03/18 18:00 11/02/18 17:59 10/09/18 13:30 Insulin Aspart (NovoLOG) BEFORE MEALS AND HS SUBQ 10/03/18 21:00 11/02/18 20:59 10/09/18 12:28 Iron Sucrose 100 mg/Sodium Chloride 60 ml @ 240 mls/hr BEDTIME IV 10/06/18 21:00 10/10/18 21:14 10/08/18 21:47 Lisinopril (Prinivil) 20 mg DAILY ORAL 10/05/18 09:00 11/04/18 08:59 10/09/18 08:41 Metformin HCl (Glucophage) 1,000 mg BID ORAL 10/05/18 09:30 11/04/18 09:29 10/09/18 08:41 Morphine Sulfate (Morphine Sulfate) 2 mg Q4H PRN IVP severe pain 7-10 10/03/18 17:30 10/10/18 17:29 Nitroglycerin (Ntg) 0.4 mg Q5M X 3 DOSES PRN SL Prn Chest Pain 10/03/18 17:30 11/02/18 17:29 Ondansetron HCl (Zofran) 4 mg Q6H PRN IVP Nausea & Vomiting 10/03/18 17:30 11/02/18 17:29 Polyethylene Glycol (Miralax) 17 gm HSPRN PRN ORAL Constipation 10/03/18 17:30 11/02/18 17:29 Sitagliptin Phosphate (Januvia) 100 mg ACBREAKFAST ORAL 10/09/18 06:30 11/08/18 06:29 10/09/18 06:00 Temazepam (Restoril) 15 mg HSPRN PRN ORAL Insomnia 10/03/18 17:30 10/10/18 17:29 10/08/18 21:42 Last 24 Hour Vital Signs Date Time Temp Pulse Resp B/P (MAP) Pulse Ox O2 Delivery O2 Flow Rate FiO2 10/09/18 08:41 133/64 10/09/18 08:00 97.9 85 20 133/64 (87) 95 10/09/18 04:00 75 10/09/18 04:00 97.3 73 28 113/60 (77) 97 10/09/18 00:00 83 10/09/18 00:00 97.5 80 18 127/87 (100) 98 10/08/18 21:00 Room Air 10/08/18 20:52 86 18 96 Room Air 21 10/08/18 20:00 98.9 85 18 157/73 (101) 99 10/08/18 16:00 97.5 86 18 150/73 (98) 96 10/08/18 16:00 87 10/08/18 12:00 90 10/08/18 12:00 97.6 85 20 134/70 (91) 98 10/08/18 09:54 84 20 98 10/08/18 09:50 85 26 153/72 97 Room Air 10/08/18 09:30 90 19 169/85 99 Room Air 10/08/18 09:20 92 18 166/80 100 Nasal Cannula 3 10/08/18 09:15 94 20 171/82 100 Nasal Cannula 3 89 10/08/18 09:10 97.8 89 48 145/80 100 Nasal Cannula 3 89 10/08/18 09:09 82 20 98 10/08/18 09:00 Room Air 10/08/18 08:24 72 18 97 Room Air 21 10/08/18 08:00 83 10/08/18 08:00 97.9 77 18 135/65 (88) 100 10/08/18 04:00 83 10/08/18 04:00 97.7 86 18 120/70 (87) 99 10/08/18 00:00 97.2 81 19 113/69 (84) 97 10/08/18 00:00 78 10/07/18 21:00 Room Air 10/07/18 20:50 70 18 97 Room Air 21 10/07/18 20:00 81 10/07/18 20:00 97.7 84 19 116/67 (83) 97 10/07/18 16:00 105 10/07/18 16:00 98.0 80 18 139/67 (91) 97 Intake and Output 10/08/18 10/09/18 18:59 06:59 Intake Total 490 ml 300 ml Balance 490 ml 300 ml Intake Oral 240 ml 300 ml IV Total 250 ml # Voids 2 2 Labs Test 10/07/18 05:54 10/08/18 05:37 10/09/18 07:02 White Blood Count 3.1 K/UL (4.8-10.8) 3.3 K/UL (4.8-10.8) 3.4 K/UL (4.8-10.8) Red Blood Count 3.79 M/UL (4.20-5.40) 3.91 M/UL (4.20-5.40) 3.85 M/UL (4.20-5.40) Hemoglobin 10.8 G/DL (12.0-16.0) 11.0 G/DL (12.0-16.0) 10.8 G/DL (12.0-16.0) Hematocrit 32.3 % (37.0-47.0) 33.2 % (37.0-47.0) 32.3 % (37.0-47.0) Mean Corpuscular Volume 85 FL (80-99) 85 FL (80-99) 84 FL (80-99) Mean Corpuscular Hemoglobin 28.4 PG (27.0-31.0) 28.2 PG (27.0-31.0) 28.2 PG (27.0-31.0) Mean Corpuscular Hemoglobin Concent 33.4 G/DL (32.0-36.0) 33.2 G/DL (32.0-36.0) 33.5 G/DL (32.0-36.0) Red Cell Distribution Width 14.5 % (11.6-14.8) 14.4 % (11.6-14.8) 13.9 % (11.6-14.8) Platelet Count 98 K/UL (150-450) 112 K/UL (150-450) 98 K/UL (150-450) Mean Platelet Volume 6.0 FL (6.5-10.1) 6.8 FL (6.5-10.1) 5.5 FL (6.5-10.1) Neutrophils (%) (Auto) % (45.0-75.0) % (45.0-75.0) % (45.0-75.0) Lymphocytes (%) (Auto) % (20.0-45.0) % (20.0-45.0) % (20.0-45.0) Monocytes (%) (Auto) % (1.0-10.0) % (1.0-10.0) % (1.0-10.0) Eosinophils (%) (Auto) % (0.0-3.0) % (0.0-3.0) % (0.0-3.0) Basophils (%) (Auto) % (0.0-2.0) % (0.0-2.0) % (0.0-2.0) Differential Total Cells Counted 100 100 100 Neutrophils % (Manual) 65 % (45-75) 69 % (45-75) 68 % (45-75) Lymphocytes % (Manual) 26 % (20-45) 21 % (20-45) 24 % (20-45) Monocytes % (Manual) 7 % (1-10) 7 % (1-10) 6 % (1-10) Eosinophils % (Manual) 2 % (0-3) 2 % (0-3) 2 % (0-3) Basophils % (Manual) 0 % (0-2) 1 % (0-2) 0 % (0-2) Band Neutrophils 0 % (0-8) 0 % (0-8) 0 % (0-8) Platelet Estimate Decreased Decreased Decreased Platelet Morphology Normal Normal Normal Hypochromasia 1+ 1+ Anisocytosis 1+ 1+ Sodium Level 142 MMOL/L (136-145) 142 MMOL/L (136-145) 143 MMOL/L (136-145) Potassium Level 3.8 MMOL/L (3.5-5.1) 3.9 MMOL/L (3.5-5.1) 3.8 MMOL/L (3.5-5.1) Chloride Level 107 MMOL/L (98-107) 106 MMOL/L (98-107) 107 MMOL/L (98-107) Carbon Dioxide Level 28 MMOL/L (21-32) 28 MMOL/L (21-32) 27 MMOL/L (21-32) Anion Gap 7 mmol/L (5-15) 8 mmol/L (5-15) 9 mmol/L (5-15) Blood Urea Nitrogen 11 mg/dL (7-18) 8 mg/dL (7-18) 8 mg/dL (7-18) Creatinine 0.5 MG/DL (0.55-1.30) 0.5 MG/DL (0.55-1.30) 0.5 MG/DL (0.55-1.30) Estimat Glomerular Filtration Rate > 60 mL/min (>60) > 60 mL/min (>60) > 60 mL/min (>60) Glucose Level 119 MG/DL (74-106) 119 MG/DL (74-106) 121 MG/DL (74-106) Calcium Level 9.4 MG/DL (8.5-10.1) 9.4 MG/DL (8.5-10.1) 9.3 MG/DL (8.5-10.1) Iron Level 195 ug/dL (50-175) Total Iron Binding Capacity 283 ug/dL (250-450) Percent Iron Saturation 69 % (15-50) Unsaturated Iron Binding 88 ug/dL (112-346) Prothrombin Time 10.9 SEC (9.30-11.50) Prothromb Time International Ratio 1.0 (0.9-1.1) Activated Partial Thromboplast Time 27 SEC (23-33) Height (Feet): 5 Height (Inches): 3.00 Weight (Pounds): 185 Objective General Appearance: no apparent distress, alert, Head: normocephalic, atraumatic Eyes: bilateral eye normal inspection, bilateral eye PERRL ENT: hearing grossly normal, normal pharynx, no angioedema, normal voice Neck: full range of motion, supple/symm/no masses Respiratory: lungs clear Cardiovascular: regular rate, rhythm, no edema Gastrointestinal: normal bowel sounds, non tender, soft, non-distended, no guarding, no rebound Musculoskeletal: back normal, gait/station normal, normal range of motion, non- tender, swelling - +Swelling of L. hand through upper arm. Neurologic: alert, oriented x3, responsive, motor strength/tone normal, sensory intact, speech normal Psychiatric: judgement/insight normal, memory normal, mood/affect normal, no suicidal/homicidal ideation Skin: normal color, no rash, warm/dry, Aidan Johns MD Oct 09, 2018 15:14
--- NOTE | 2018-10-09 15:32 | Cardiac Electrophysiology PN ---
Assessment/Plan Assessment/Plan 1. Shortness of breath and mildly elevated D-dimer. Resolved Lower extremity duplex, no evidence of DVT. No DE Echo Nl EF. 2. Hypertension, on lisinopril 20 mg daily and prn clonidine. 3. Hyperlipidemia, on Lipitor. 4. Uncontrolled diabetes, on insulin. 5. Chest pain. Ruled out for DE. ECG Nl. Stress test, no ischemia 6. CT abdomen showed Hepatic cirrhosis and portal hypertension, with fairly extensive perigastric varices and splenomegaly EGD per Dr Jarvis no varices DW RN Subjective Subjective No CP or SOB.Had EGD yesterday that showed gastritis but no varices. Awaiting stool OB Objective Last 24 Hour Vital Signs Date Time Temp Pulse Resp B/P (MAP) Pulse Ox O2 Delivery O2 Flow Rate FiO2 10/09/18 08:41 133/64 10/09/18 08:00 97.9 85 20 133/64 (87) 95 10/09/18 04:00 75 10/09/18 04:00 97.3 73 28 113/60 (77) 97 10/09/18 00:00 83 10/09/18 00:00 97.5 80 18 127/87 (100) 98 10/08/18 21:00 Room Air 10/08/18 20:52 86 18 96 Room Air 21 10/08/18 20:00 98.9 85 18 157/73 (101) 99 10/08/18 16:00 97.5 86 18 150/73 (98) 96 10/08/18 16:00 87 Intake and Output 10/08/18 10/09/18 18:59 06:59 Intake Total 490 ml 300 ml Balance 490 ml 300 ml Intake Oral 240 ml 300 ml IV Total 250 ml # Voids 2 2 Laboratory Tests Test 10/09/18 07:02 White Blood Count 3.4 K/UL (4.8-10.8) L Red Blood Count 3.85 M/UL (4.20-5.40) L Hemoglobin 10.8 G/DL (12.0-16.0) L Hematocrit 32.3 % (37.0-47.0) L Mean Corpuscular Volume 84 FL (80-99) Mean Corpuscular Hemoglobin 28.2 PG (27.0-31.0) Mean Corpuscular Hemoglobin Concent 33.5 G/DL (32.0-36.0) Red Cell Distribution Width 13.9 % (11.6-14.8) Platelet Count 98 K/UL (150-450) L Mean Platelet Volume 5.5 FL (6.5-10.1) L Neutrophils (%) (Auto) % (45.0-75.0) Lymphocytes (%) (Auto) % (20.0-45.0) Monocytes (%) (Auto) % (1.0-10.0) Eosinophils (%) (Auto) % (0.0-3.0) Basophils (%) (Auto) % (0.0-2.0) Differential Total Cells Counted 100 Neutrophils % (Manual) 68 % (45-75) Lymphocytes % (Manual) 24 % (20-45) Monocytes % (Manual) 6 % (1-10) Eosinophils % (Manual) 2 % (0-3) Basophils % (Manual) 0 % (0-2) Band Neutrophils 0 % (0-8) Platelet Estimate Decreased L Platelet Morphology Normal Hypochromasia 1+ Anisocytosis 1+ Sodium Level 143 MMOL/L (136-145) Potassium Level 3.8 MMOL/L (3.5-5.1) Chloride Level 107 MMOL/L (98-107) Carbon Dioxide Level 27 MMOL/L (21-32) Anion Gap 9 mmol/L (5-15) Blood Urea Nitrogen 8 mg/dL (7-18) Creatinine 0.5 MG/DL (0.55-1.30) L Estimat Glomerular Filtration Rate > 60 mL/min (>60) Glucose Level 121 MG/DL (74-106) H Calcium Level 9.3 MG/DL (8.5-10.1) Objective HEENT: Head and neck showed no JVD or carotid bruits. LUNGS: Clear. CARDIOVASCULAR: Regular S1 and S2 with no gallop or murmur. ABDOMEN: Soft. EXTREMITIES: No pitting edema. Denzel Castillo MD Oct 09, 2018 15:32
[2018-10-09 16:00] VITALS: BP 138/60
--- NOTE | 2018-10-09 16:00 | NUR ---
NURSE NOTES: Surgical wound dressing change completed per order. OB stool still pending due to no BM. Will continue plan of care with close monitoring.
--- NOTE | 2018-10-09 19:25 | NUR ---
HAND-OFF: Report given to FUNMILAYO Lagos. The patient is resting on the bed without acute distress or shortness of breath. The patient's bed in the lowest position, call light in reach, and fall precaution reinforced. Endorsed plan of care.
--- NOTE | 2018-10-09 19:45 | NUR ---
NURSE NOTES: Report received from FUNMILAYO Steele. pt is in stable condition sitting at bedside. No cardiopulmonary distress noted. Bed in lowest position, bed brakes engaged, side rails up x3 and call light within reach. Will continue to monitor.
[2018-10-09 20:00] VITALS: BP 139/69
[2018-10-09] MEDS: Atorvastatin 20mg tab ORAL SCH (21:07)
[2018-10-09] MEDS: Iron Sucrose 100 MG in NS 55 ML IV SCH (21:08)
[2018-10-10] VITALS: BP 154/85
[2018-10-10 04:00] VITALS: BP 145/74
[2018-10-10] MEDS: NovoLOG Insulin Flexpen SUBQ SCH ×3 (05:52→16:30)
[2018-10-10 06:44] LABS: EOSINOPHILS % (AUTO) 1.8 % (0.0-3.0); HEMATOCRIT 33.3 % (37.0-47.0); HEMOGLOBIN 11.1 G/DL (12.0-16.0); LYMPHOCYTES % (AUTO) 26.4 % (20.0-45.0); MEAN CORPUSCULAR VOLUME 85 FL (80-99); MONOCYTES % (AUTO) 6.4 % (1.0-10.0); NEUTROPHILS % (AUTO) 64.4 % (45.0-75.0); PLATELET COUNT 117 K/UL (150-450); RED BLOOD COUNT 3.91 M/UL (4.20-5.40); WHITE BLOOD COUNT 3.6 K/UL (4.8-10.8)
--- NOTE | 2018-10-10 06:56 | General Progress Note ---
Assessment/Plan Problem List: (1) Diabetes mellitus ICD Codes: E11.9 - Type 2 diabetes mellitus without complications SNOMED: 77483637 (2) CHF (congestive heart failure) ICD Codes: I50.9 - Heart failure, unspecified SNOMED: 70827528 (3) Chest tightness ICD Codes: R07.89 - Other chest pain SNOMED: 02067218 (4) Episode of generalized weakness ICD Codes: R53.1 - Weakness SNOMED: 53761672 (5) HTN (hypertension) ICD Codes: I10 - Essential (primary) hypertension SNOMED: 44224902 Status: stable, progressing Assessment/Plan: continue Metformin 1000 mg bid continue Januvia 1000 mg daily no need for scheduled basal / bolus insulin for now continue NISS ac / hs Subjective Allergies: Coded Allergies: PENICILLINS (Verified Allergy, Severe, anaphalaxtic, 10/03/18) All Systems: reviewed and negative except above Subjective events noted Item Value Date Time Bedside Blood Glucose 105 mg/dl 10/10/18 0630 Bedside Blood Glucose 164 mg/dl H 10/09/18 2112 Bedside Blood Glucose 171 mg/dl H 10/09/18 1659 Bedside Blood Glucose 131 mg/dl H 10/09/18 1228 Bedside Blood Glucose 131 mg/dl H 10/09/18 0630 Objective Last 24 Hour Vital Signs Date Time Temp Pulse Resp B/P (MAP) Pulse Ox O2 Delivery O2 Flow Rate FiO2 10/10/18 04:00 72 10/10/18 04:00 97.0 75 20 145/74 (97) 97 10/10/18 00:00 74 10/10/18 00:00 98.6 77 20 154/85 (108) 95 10/09/18 21:00 Room Air 10/09/18 20:00 98.4 86 20 139/69 (92) 95 10/09/18 20:00 82 10/09/18 16:00 88 10/09/18 16:00 98.4 85 18 138/60 (86) 96 10/09/18 12:00 87 10/09/18 12:00 98.4 81 20 119/67 (84) 97 10/09/18 09:00 Room Air 10/09/18 08:41 133/64 10/09/18 08:00 97.9 85 20 133/64 (87) 95 10/09/18 08:00 84 Intake and Output 10/09/18 10/10/18 19:00 07:00 Intake Total 360 ml Balance 360 ml Intake Oral 360 ml # Voids 3 2 Laboratory Tests 10/09/18 07:02: White Blood Count 3.4L, Red Blood Count 3.85L, Hemoglobin 10.8L, Hematocrit 32.3L, Mean Corpuscular Volume 84, Mean Corpuscular Hemoglobin 28.2, Mean Corpuscular Hemoglobin Concent 33.5, Red Cell Distribution Width 13.9, Platelet Count 98L, Mean Platelet Volume 5.5L, Neutrophils (%) (Auto) , Lymphocytes (%) ( Auto) , Monocytes (%) (Auto) , Eosinophils (%) (Auto) , Basophils (%) (Auto) , Differential Total Cells Counted 100, Neutrophils % (Manual) 68, Lymphocytes % ( Manual) 24, Monocytes % (Manual) 6, Eosinophils % (Manual) 2, Basophils % ( Manual) 0, Band Neutrophils 0, Platelet Estimate DecreasedL, Platelet Morphology Normal, Hypochromasia 1+, Anisocytosis 1+, Sodium Level 143, Potassium Level 3.8, Chloride Level 107, Carbon Dioxide Level 27, Anion Gap 9, Blood Urea Nitrogen 8, Creatinine 0.5L, Estimat Glomerular Filtration Rate > 60 , Glucose Level 121H, Calcium Level 9.3, Alpha Fetoprotein [Pending] 10/10/18 06:18: White Blood Count [Pending], Red Blood Count [Pending], Hemoglobin [Pending], Hematocrit [Pending], Mean Corpuscular Volume [Pending], Mean Corpuscular Hemoglobin [Pending], Mean Corpuscular Hemoglobin Concent [Pending], Red Cell Distribution Width [Pending], Platelet Count [Pending], Mean Platelet Volume [ Pending], Neutrophils (%) (Auto) [Pending], Lymphocytes (%) (Auto) [Pending], Monocytes (%) (Auto) [Pending], Eosinophils (%) (Auto) [Pending], Basophils (%) (Auto) [Pending], Sodium Level [Pending], Potassium Level [Pending], Chloride Level [Pending], Carbon Dioxide Level [Pending], Blood Urea Nitrogen [Pending], Creatinine [Pending], Estimat Glomerular Filtration Rate [Pending], Glucose Level [Pending], Calcium Level [Pending] Height (Feet): 5 Height (Inches): 3.00 Weight (Pounds): 185 General Appearance: no apparent distress Neck: normal alignment Cardiovascular: normal rate Respiratory/Chest: lungs clear Abdomen: normal bowel sounds Pelvis: normal external exam Objective Current Medications Medications (Trade) Dose Ordered Sig/Shila Route PRN Reason Start Time Stop Time Status Last Admin Dose Admin Acetaminophen (Tylenol) 650 mg Q4H PRN ORAL Mild Pain/Temp > 100.5 10/05/18 18:00 11/02/18 17:59 10/07/18 13:07 Aspirin (Ecotrin) 81 mg DAILY ORAL 10/05/18 09:00 11/04/18 08:59 10/09/18 08:40 Atorvastatin Calcium (Lipitor) 40 mg BEDTIME ORAL 10/04/18 21:00 11/03/18 20:59 10/09/18 21:07 Clonidine HCl (Catapres Tab) 0.1 mg Q4H PRN ORAL sbp more than 160 10/03/18 17:30 11/02/18 17:29 10/07/18 00:05 Dextrose (Dextrose 50%) 25 ml Q30M PRN IV Hypoglycemia 10/03/18 17:30 11/02/18 17:29 Dextrose (Dextrose 50%) 50 ml Q30M PRN IV Hypoglycemia 10/03/18 17:30 11/02/18 17:29 Gabapentin (Neurontin) 600 mg THREE TIMES A DAY ORAL 10/03/18 18:00 11/02/18 17:59 10/09/18 18:35 Insulin Aspart (NovoLOG) BEFORE MEALS AND HS SUBQ 10/03/18 21:00 11/02/18 20:59 10/09/18 21:12 Iron Sucrose 100 mg/Sodium Chloride 60 ml @ 240 mls/hr BEDTIME IV 10/06/18 21:00 10/10/18 21:14 10/09/18 21:08 Lisinopril (Prinivil) 20 mg DAILY ORAL 10/05/18 09:00 11/04/18 08:59 10/09/18 08:41 Metformin HCl (Glucophage) 1,000 mg BID ORAL 10/05/18 09:30 11/04/18 09:29 10/09/18 18:35 Morphine Sulfate (Morphine Sulfate) 2 mg Q4H PRN IVP severe pain 7-10 10/03/18 17:30 10/10/18 17:29 Nitroglycerin (Ntg) 0.4 mg Q5M X 3 DOSES PRN SL Prn Chest Pain 10/03/18 17:30 11/02/18 17:29 Ondansetron HCl (Zofran) 4 mg Q6H PRN IVP Nausea & Vomiting 10/03/18 17:30 11/02/18 17:29 Polyethylene Glycol (Miralax) 17 gm HSPRN PRN ORAL Constipation 10/03/18 17:30 11/02/18 17:29 Sitagliptin Phosphate (Januvia) 100 mg ACBREAKFAST ORAL 10/09/18 06:30 11/08/18 06:29 10/10/18 05:54 Temazepam (Restoril) 15 mg HSPRN PRN ORAL Insomnia 10/03/18 17:30 10/10/18 17:29 10/09/18 21:07 Jim Allred MD Oct 10, 2018 06:56
[2018-10-10 07:07] LABS: ANION GAP 9 mmol/L (5-15); BLOOD UREA NITROGEN 8 mg/dL (7-18); CALCIUM 9.6 MG/DL (8.5-10.1); CARBON DIOXIDE 27 MMOL/L (21-32); CHLORIDE 108 MMOL/L (98-107); CREATININE 0.5 MG/DL (0.55-1.30); SODIUM 144 MMOL/L (136-145)
--- NOTE | 2018-10-10 07:37 | NUR ---
HAND-OFF: Report given to FUNMILAYO Steele. Plan of care endorsed.
--- NOTE | 2018-10-10 07:38 | NUR ---
NURSE NOTES: Received report from FUNMILAYO Lagos. The patient denies of acute distress or shortness of breath. The patient's bed in the lowest position, call light in reach, and fall precaution reinforced. Will continue to monitor body temperature and s/s of infection. Will continue plan of care.
[2018-10-10 08:00] VITALS: BP 138/75
--- NOTE | 2018-10-10 08:34 | General Progress Note ---
Assessment/Plan Problem List: (1) Generalized weakness ICD Codes: R53.1 - Weakness SNOMED: 79298816 (2) Diabetes mellitus ICD Codes: E11.9 - Type 2 diabetes mellitus without complications SNOMED: 33642893 (3) HTN (hypertension) ICD Codes: I10 - Essential (primary) hypertension SNOMED: 25775387 (4) UTI (urinary tract infection) ICD Codes: N39.0 - Urinary tract infection, site not specified SNOMED: 47630096 (5) Anemia ICD Codes: D64.9 - Anemia, unspecified SNOMED: 058940906 Status: stable, progressing Assessment/Plan: Assessment - s/p ventral hernia repair - Failure of wound closure -Abdominal pelvis CT reviewed. s/p EGD SUMMARY OF FINDINGS: 1. No esophageal or obvious gastric varices. 2. Mild portal hypertensive gastropathy. 3. Inflammatory area in the prepyloric region, status post biopsy. okay for DC per GI standpoint Follow up biopsy results and treat accordingly. Surgical recommendations reviewed, no intervention at this time OB stool r/o GI bleed prn transfusions ppi follow labs Subjective ROS Limited/Unobtainable: No Allergies: Coded Allergies: PENICILLINS (Verified Allergy, Severe, anaphalaxtic, 10/03/18) Objective Last 24 Hour Vital Signs Date Time Temp Pulse Resp B/P (MAP) Pulse Ox O2 Delivery O2 Flow Rate FiO2 10/10/18 04:00 72 10/10/18 04:00 97.0 75 20 145/74 (97) 97 10/10/18 00:00 74 10/10/18 00:00 98.6 77 20 154/85 (108) 95 10/09/18 21:00 Room Air 10/09/18 20:00 98.4 86 20 139/69 (92) 95 10/09/18 20:00 82 10/09/18 16:00 88 10/09/18 16:00 98.4 85 18 138/60 (86) 96 10/09/18 12:00 87 10/09/18 12:00 98.4 81 20 119/67 (84) 97 10/09/18 09:00 Room Air 10/09/18 08:41 133/64 Intake and Output 10/09/18 10/10/18 19:00 07:00 Intake Total 360 ml Balance 360 ml Intake Oral 360 ml # Voids 3 2 Laboratory Tests 10/10/18 06:18: White Blood Count 3.6L, Red Blood Count 3.91L, Hemoglobin 11.1L, Hematocrit 33.3L, Mean Corpuscular Volume 85, Mean Corpuscular Hemoglobin 28.3, Mean Corpuscular Hemoglobin Concent 33.3, Red Cell Distribution Width 15.0H, Platelet Count 117L, Mean Platelet Volume 5.9L, Neutrophils (%) (Auto) 64.4, Lymphocytes (%) (Auto) 26.4, Monocytes (%) (Auto) 6.4, Eosinophils (%) (Auto) 1.8, Basophils (%) (Auto) 1.0, Sodium Level 144, Potassium Level 4.0, Chloride Level 108H, Carbon Dioxide Level 27, Anion Gap 9, Blood Urea Nitrogen 8, Creatinine 0.5L, Estimat Glomerular Filtration Rate > 60, Glucose Level 107H, Calcium Level 9.6 Height (Feet): 5 Height (Inches): 3.00 Weight (Pounds): 185 General Appearance: no apparent distress EENT: normal ENT inspection Neck: supple Cardiovascular: normal rate Respiratory/Chest: decreased breath sounds Abdomen: normal bowel sounds, non tender, soft Extremities: non-tender Star Jarvis MD Oct 10, 2018 08:34
--- NOTE | 2018-10-10 09:21 | Cardiac Electrophysiology PN ---
Assessment/Plan Assessment/Plan 1. Shortness of breath. Resolved Lower extremity duplex, no evidence of DVT. No AK Echo Nl EF. 2. Hypertension, on lisinopril 20 mg daily and prn clonidine. 3. Hyperlipidemia, on Lipitor. 4. Uncontrolled diabetes, on insulin. 5. Chest pain. Ruled out for AK. ECG Nl. Stress test, no ischemia 6. CT abdomen showed Hepatic cirrhosis and portal hypertension, with fairly extensive perigastric varices and splenomegaly EGD per Dr Jarvis no varices. Awaiting stool OB DW RN Subjective Subjective No CP or SOB. Still Awaiting stool OB Objective Last 24 Hour Vital Signs Date Time Temp Pulse Resp B/P (MAP) Pulse Ox O2 Delivery O2 Flow Rate FiO2 10/10/18 08:00 98.1 84 17 138/75 (96) 96 10/10/18 04:00 72 10/10/18 04:00 97.0 75 20 145/74 (97) 97 10/10/18 00:00 74 10/10/18 00:00 98.6 77 20 154/85 (108) 95 10/09/18 21:00 Room Air 10/09/18 20:00 98.4 86 20 139/69 (92) 95 10/09/18 20:00 82 10/09/18 16:00 88 10/09/18 16:00 98.4 85 18 138/60 (86) 96 10/09/18 12:00 87 10/09/18 12:00 98.4 81 20 119/67 (84) 97 Intake and Output 10/09/18 10/10/18 19:00 07:00 Intake Total 360 ml Balance 360 ml Intake Oral 360 ml # Voids 3 2 Laboratory Tests Test 10/10/18 06:18 White Blood Count 3.6 K/UL (4.8-10.8) L Red Blood Count 3.91 M/UL (4.20-5.40) L Hemoglobin 11.1 G/DL (12.0-16.0) L Hematocrit 33.3 % (37.0-47.0) L Mean Corpuscular Volume 85 FL (80-99) Mean Corpuscular Hemoglobin 28.3 PG (27.0-31.0) Mean Corpuscular Hemoglobin Concent 33.3 G/DL (32.0-36.0) Red Cell Distribution Width 15.0 % (11.6-14.8) H Platelet Count 117 K/UL (150-450) L Mean Platelet Volume 5.9 FL (6.5-10.1) L Neutrophils (%) (Auto) 64.4 % (45.0-75.0) Lymphocytes (%) (Auto) 26.4 % (20.0-45.0) Monocytes (%) (Auto) 6.4 % (1.0-10.0) Eosinophils (%) (Auto) 1.8 % (0.0-3.0) Basophils (%) (Auto) 1.0 % (0.0-2.0) Sodium Level 144 MMOL/L (136-145) Potassium Level 4.0 MMOL/L (3.5-5.1) Chloride Level 108 MMOL/L (98-107) H Carbon Dioxide Level 27 MMOL/L (21-32) Anion Gap 9 mmol/L (5-15) Blood Urea Nitrogen 8 mg/dL (7-18) Creatinine 0.5 MG/DL (0.55-1.30) L Estimat Glomerular Filtration Rate > 60 mL/min (>60) Glucose Level 107 MG/DL (74-106) H Calcium Level 9.6 MG/DL (8.5-10.1) Objective HEENT: Head and neck showed no JVD or carotid bruits. LUNGS: Clear. CARDIOVASCULAR: Regular S1 and S2 with no gallop or murmur. ABDOMEN: Soft. EXTREMITIES: No pitting edema. Denzel Castillo MD Oct 10, 2018 09:21
[2018-10-10] MEDS: Aspirin EC 81mg tab ORAL SCH (09:36)
[2018-10-10] MEDS: Lisinopril 20mg tab ORAL SCH (09:36)
[2018-10-10] MEDS: metFORMIN 500mg tab ORAL SCH (09:36)
--- NOTE | 2018-10-10 10:26 | Infectious Diseases Prog Note ---
Assessment/Plan Assessment/Plan The patient is a 68-year-old female who is afebrile, normal white blood cell, and scant cough appeared to be due to CHF, pulmonary congestion, doubt pneumonia. Cough No Fever No leukocytosis No SOB Abdominal hernia S/p Repair No sign of active infection. CT abd/pel - Evidence of prior anterior abdominal wall hernia repair with mesh in place. There are some adjacent inflammatory changes, not unexpected if surgery was fairly recent. No evidence of fluid collection or other significant complication Evidence of hepatic cirrhosis. Evidence of portal hypertension, with fairly extensive perigastric varices and splenomegaly Gallbladder wall thickening and pericholecystic inflammation. Probably secondary to the above-mentioned portal hypertension. Acalculous acute cholecystitis or acute cholecystitis due to occult stones less likely but also possible, and consideration should be given to hepatobiliary nuclear scan if there is high clinical suspicion Mild infiltration of the mesenteric root caudad to the pancreas. Probably congestion secondary to portal hypertension but inflammatory process also possible Other findings as noted, including lipomatous hypertrophy of the ileocecal valve, duodenal diverticulum, degenerative spondylosis PLAN: - Monitor the patient off Abx - Monitor CBC and BMP. - Monitor chest x-ray. Subjective Allergies: Coded Allergies: PENICILLINS (Verified Allergy, Severe, anaphalaxtic, 10/03/18) Subjective Afebrile No leukocytosis Objective Vital Signs Last 24 Hour Vital Signs Date Time Temp Pulse Resp B/P (MAP) Pulse Ox O2 Delivery O2 Flow Rate FiO2 10/10/18 09:36 138/75 10/10/18 08:00 98.1 84 17 138/75 (96) 96 10/10/18 04:00 72 10/10/18 04:00 97.0 75 20 145/74 (97) 97 10/10/18 00:00 74 10/10/18 00:00 98.6 77 20 154/85 (108) 95 10/09/18 21:00 Room Air 10/09/18 20:00 98.4 86 20 139/69 (92) 95 10/09/18 20:00 82 10/09/18 16:00 88 10/09/18 16:00 98.4 85 18 138/60 (86) 96 10/09/18 12:00 87 10/09/18 12:00 98.4 81 20 119/67 (84) 97 Height (Feet): 5 Height (Inches): 3.00 Weight (Pounds): 185 Objective GEN: NAD HEENT: NCAT, MMM, EOMI LUNGS: CTAB, No W HEART: RRR, S1, S2 Abd: Soft, NT, ND Laboratory Tests Test 10/10/18 06:18 White Blood Count 3.6 K/UL (4.8-10.8) L Red Blood Count 3.91 M/UL (4.20-5.40) L Hemoglobin 11.1 G/DL (12.0-16.0) L Hematocrit 33.3 % (37.0-47.0) L Mean Corpuscular Volume 85 FL (80-99) Mean Corpuscular Hemoglobin 28.3 PG (27.0-31.0) Mean Corpuscular Hemoglobin Concent 33.3 G/DL (32.0-36.0) Red Cell Distribution Width 15.0 % (11.6-14.8) H Platelet Count 117 K/UL (150-450) L Mean Platelet Volume 5.9 FL (6.5-10.1) L Neutrophils (%) (Auto) 64.4 % (45.0-75.0) Lymphocytes (%) (Auto) 26.4 % (20.0-45.0) Monocytes (%) (Auto) 6.4 % (1.0-10.0) Eosinophils (%) (Auto) 1.8 % (0.0-3.0) Basophils (%) (Auto) 1.0 % (0.0-2.0) Sodium Level 144 MMOL/L (136-145) Potassium Level 4.0 MMOL/L (3.5-5.1) Chloride Level 108 MMOL/L (98-107) H Carbon Dioxide Level 27 MMOL/L (21-32) Anion Gap 9 mmol/L (5-15) Blood Urea Nitrogen 8 mg/dL (7-18) Creatinine 0.5 MG/DL (0.55-1.30) L Estimat Glomerular Filtration Rate > 60 mL/min (>60) Glucose Level 107 MG/DL (74-106) H Calcium Level 9.6 MG/DL (8.5-10.1) Current Medications Medications (Trade) Dose Ordered Sig/Shila Route PRN Reason Start Time Stop Time Status Last Admin Dose Admin Acetaminophen (Tylenol) 650 mg Q4H PRN ORAL Mild Pain/Temp > 100.5 10/05/18 18:00 11/02/18 17:59 10/07/18 13:07 Aspirin (Ecotrin) 81 mg DAILY ORAL 10/05/18 09:00 11/04/18 08:59 10/10/18 09:36 Atorvastatin Calcium (Lipitor) 40 mg BEDTIME ORAL 10/04/18 21:00 11/03/18 20:59 10/09/18 21:07 Clonidine HCl (Catapres Tab) 0.1 mg Q4H PRN ORAL sbp more than 160 10/03/18 17:30 11/02/18 17:29 10/07/18 00:05 Dextrose (Dextrose 50%) 25 ml Q30M PRN IV Hypoglycemia 10/03/18 17:30 11/02/18 17:29 Dextrose (Dextrose 50%) 50 ml Q30M PRN IV Hypoglycemia 10/03/18 17:30 11/02/18 17:29 Gabapentin (Neurontin) 600 mg THREE TIMES A DAY ORAL 10/03/18 18:00 11/02/18 17:59 10/10/18 09:36 Insulin Aspart (NovoLOG) BEFORE MEALS AND HS SUBQ 10/03/18 21:00 11/02/18 20:59 10/09/18 21:12 Iron Sucrose 100 mg/Sodium Chloride 60 ml @ 240 mls/hr BEDTIME IV 10/06/18 21:00 10/10/18 21:14 10/09/18 21:08 Lisinopril (Prinivil) 20 mg DAILY ORAL 10/05/18 09:00 11/04/18 08:59 10/10/18 09:36 Metformin HCl (Glucophage) 1,000 mg BID ORAL 10/05/18 09:30 11/04/18 09:29 10/10/18 09:36 Morphine Sulfate (Morphine Sulfate) 2 mg Q4H PRN IVP severe pain 7-10 10/03/18 17:30 10/10/18 17:29 Nitroglycerin (Ntg) 0.4 mg Q5M X 3 DOSES PRN SL Prn Chest Pain 10/03/18 17:30 11/02/18 17:29 Ondansetron HCl (Zofran) 4 mg Q6H PRN IVP Nausea & Vomiting 10/03/18 17:30 11/02/18 17:29 Polyethylene Glycol (Miralax) 17 gm HSPRN PRN ORAL Constipation 10/03/18 17:30 11/02/18 17:29 Sitagliptin Phosphate (Januvia) 100 mg ACBREAKFAST ORAL 10/09/18 06:30 11/08/18 06:29 10/10/18 05:54 Temazepam (Restoril) 15 mg HSPRN PRN ORAL Insomnia 10/03/18 17:30 10/10/18 17:29 10/09/18 21:07 Luiz Briceno MD Oct 10, 2018 10:26
--- NOTE | 2018-10-10 11:47 | NUR ---
DISCHARGE PLANNING: NOTE [facility] IS ACCEPTING THIS PATIENT TODAY. AWAITING OFFICIAL DC ORDER. ANTHONY MENDOZA IS AWARE.
[2018-10-10 12:00] VITALS: BP 131/72
[2018-10-10] MEDS ORDERED: Miralax 17gm pkt ORAL PRN ×2 (12:00)
--- NOTE | 2018-10-10 12:16 | Pulmonology Progress Note ---
Assessment/Plan Problems: (1) Portal hypertension (2) Advanced cirrhosis of liver (3) Generalized weakness (4) Diabetes mellitus (5) HTN (hypertension) (6) Anemia Assessment/Plan no new complains pt/ot Echo reviewed stress study done, was negative monitor BP sliding scale diabetic diet OC still pending Subjective ROS Limited/Unobtainable: No Constitutional: Reports: no symptoms HEENT: Repors: no symptoms Respiratory: Reports: no symptoms Cardiovascular: Reports: no symptoms Allergies: Coded Allergies: PENICILLINS (Verified Allergy, Severe, anaphalaxtic, 10/03/18) Objective Last 24 Hour Vital Signs Date Time Temp Pulse Resp B/P (MAP) Pulse Ox O2 Delivery O2 Flow Rate FiO2 10/10/18 09:36 138/75 10/10/18 09:00 Room Air 10/10/18 08:00 98.1 84 17 138/75 (96) 96 10/10/18 04:00 72 10/10/18 04:00 97.0 75 20 145/74 (97) 97 10/10/18 00:00 74 10/10/18 00:00 98.6 77 20 154/85 (108) 95 10/09/18 21:00 Room Air 10/09/18 20:00 98.4 86 20 139/69 (92) 95 10/09/18 20:00 82 10/09/18 16:00 88 10/09/18 16:00 98.4 85 18 138/60 (86) 96 Intake and Output 10/09/18 10/10/18 19:00 07:00 Intake Total 360 ml Balance 360 ml Intake Oral 360 ml # Voids 3 2 General Appearance: WD/WN HEENT: normocephalic, atraumatic Respiratory/Chest: chest wall non-tender, lungs clear Breasts: no masses Cardiovascular: normal peripheral pulses Abdomen: normal bowel sounds, soft, non tender Genitourinary: normal external genitalia Skin: no rash Neurologic/Psychiatric: musculoskeletal physician II-XII grossly normal Laboratory Tests 10/10/18 06:18: White Blood Count 3.6L, Red Blood Count 3.91L, Hemoglobin 11.1L, Hematocrit 33.3L, Mean Corpuscular Volume 85, Mean Corpuscular Hemoglobin 28.3, Mean Corpuscular Hemoglobin Concent 33.3, Red Cell Distribution Width 15.0H, Platelet Count 117L, Mean Platelet Volume 5.9L, Neutrophils (%) (Auto) 64.4, Lymphocytes (%) (Auto) 26.4, Monocytes (%) (Auto) 6.4, Eosinophils (%) (Auto) 1.8, Basophils (%) (Auto) 1.0, Sodium Level 144, Potassium Level 4.0, Chloride Level 108H, Carbon Dioxide Level 27, Anion Gap 9, Blood Urea Nitrogen 8, Creatinine 0.5L, Estimat Glomerular Filtration Rate > 60, Glucose Level 107H, Calcium Level 9.6 Current Medications Medications (Trade) Dose Ordered Sig/Shila Route PRN Reason Start Time Stop Time Status Last Admin Dose Admin Acetaminophen (Tylenol) 650 mg Q4H PRN ORAL Mild Pain/Temp > 100.5 10/05/18 18:00 11/02/18 17:59 10/07/18 13:07 Aspirin (Ecotrin) 81 mg DAILY ORAL 10/05/18 09:00 11/04/18 08:59 10/10/18 09:36 Atorvastatin Calcium (Lipitor) 40 mg BEDTIME ORAL 10/04/18 21:00 11/03/18 20:59 10/09/18 21:07 Clonidine HCl (Catapres Tab) 0.1 mg Q4H PRN ORAL sbp more than 160 10/03/18 17:30 11/02/18 17:29 10/07/18 00:05 Dextrose (Dextrose 50%) 25 ml Q30M PRN IV Hypoglycemia 10/03/18 17:30 11/02/18 17:29 Dextrose (Dextrose 50%) 50 ml Q30M PRN IV Hypoglycemia 10/03/18 17:30 11/02/18 17:29 Gabapentin (Neurontin) 600 mg THREE TIMES A DAY ORAL 10/03/18 18:00 11/02/18 17:59 10/10/18 12:12 Insulin Aspart (NovoLOG) BEFORE MEALS AND HS SUBQ 10/03/18 21:00 11/02/18 20:59 10/10/18 12:11 Iron Sucrose 100 mg/Sodium Chloride 60 ml @ 240 mls/hr BEDTIME IV 10/06/18 21:00 10/10/18 21:14 10/09/18 21:08 Lisinopril (Prinivil) 20 mg DAILY ORAL 10/05/18 09:00 11/04/18 08:59 10/10/18 09:36 Metformin HCl (Glucophage) 1,000 mg BID ORAL 10/05/18 09:30 11/04/18 09:29 10/10/18 09:36 Morphine Sulfate (Morphine Sulfate) 2 mg Q4H PRN IVP severe pain 7-10 10/03/18 17:30 10/10/18 17:29 Nitroglycerin (Ntg) 0.4 mg Q5M X 3 DOSES PRN SL Prn Chest Pain 10/03/18 17:30 11/02/18 17:29 Ondansetron HCl (Zofran) 4 mg Q6H PRN IVP Nausea & Vomiting 10/03/18 17:30 11/02/18 17:29 Polyethylene Glycol (Miralax) 17 gm DAILYPRN PRN ORAL Constipation 10/10/18 12:00 11/09/18 11:59 10/10/18 12:12 Sitagliptin Phosphate (Januvia) 100 mg ACBREAKFAST ORAL 10/09/18 06:30 11/08/18 06:29 10/10/18 05:54 Temazepam (Restoril) 15 mg HSPRN PRN ORAL Insomnia 10/03/18 17:30 10/10/18 17:29 10/09/18 21:07 Gabby Mayer MD Oct 10, 2018 12:16
--- NOTE | 2018-10-10 12:49 | General Progress Note ---
Assessment/Plan Problem List: (1) UTI (urinary tract infection) ICD Codes: N39.0 - Urinary tract infection, site not specified SNOMED: 56792688 (2) Pancytopenia ICD Codes: D61.818 - Other pancytopenia SNOMED: 984363644 (3) HTN (hypertension) ICD Codes: I10 - Essential (primary) hypertension SNOMED: 56364310 (4) Anemia ICD Codes: D64.9 - Anemia, unspecified SNOMED: 740434811 (5) Chest tightness ICD Codes: R07.89 - Other chest pain SNOMED: 60275041 (6) CHF (congestive heart failure) ICD Codes: I50.9 - Heart failure, unspecified SNOMED: 43902784 (7) Episode of generalized weakness ICD Codes: R53.1 - Weakness SNOMED: 62226182 Status: stable, progressing Assessment/Plan: pt diet abx cardio gi heme f/u dc to [facility] Subjective Constitutional: Reports: weakness Respiratory: Reports: shortness of breath Allergies: Coded Allergies: PENICILLINS (Verified Allergy, Severe, anaphalaxtic, 10/03/18) All Systems: reviewed and negative except above Subjective sl dizzy Objective Last 24 Hour Vital Signs Date Time Temp Pulse Resp B/P (MAP) Pulse Ox O2 Delivery O2 Flow Rate FiO2 10/10/18 12:00 98.6 80 16 131/72 (91) 96 10/10/18 09:36 138/75 10/10/18 09:00 Room Air 10/10/18 08:00 98.1 84 17 138/75 (96) 96 10/10/18 04:00 72 10/10/18 04:00 97.0 75 20 145/74 (97) 97 10/10/18 00:00 74 10/10/18 00:00 98.6 77 20 154/85 (108) 95 10/09/18 21:00 Room Air 10/09/18 20:00 98.4 86 20 139/69 (92) 95 10/09/18 20:00 82 10/09/18 16:00 88 10/09/18 16:00 98.4 85 18 138/60 (86) 96 Intake and Output 10/09/18 10/10/18 18:59 06:59 Intake Total 360 ml Balance 360 ml Intake Oral 360 ml # Voids 3 2 Laboratory Tests 10/10/18 06:18: White Blood Count 3.6L, Red Blood Count 3.91L, Hemoglobin 11.1L, Hematocrit 33.3L, Mean Corpuscular Volume 85, Mean Corpuscular Hemoglobin 28.3, Mean Corpuscular Hemoglobin Concent 33.3, Red Cell Distribution Width 15.0H, Platelet Count 117L, Mean Platelet Volume 5.9L, Neutrophils (%) (Auto) 64.4, Lymphocytes (%) (Auto) 26.4, Monocytes (%) (Auto) 6.4, Eosinophils (%) (Auto) 1.8, Basophils (%) (Auto) 1.0, Sodium Level 144, Potassium Level 4.0, Chloride Level 108H, Carbon Dioxide Level 27, Anion Gap 9, Blood Urea Nitrogen 8, Creatinine 0.5L, Estimat Glomerular Filtration Rate > 60, Glucose Level 107H, Calcium Level 9.6 Height (Feet): 5 Height (Inches): 3.00 Weight (Pounds): 185 General Appearance: lethargic EENT: normal ENT inspection Neck: normal alignment Cardiovascular: normal peripheral pulses, normal rate, regular rhythm Respiratory/Chest: chest wall non-tender, lungs clear, normal breath sounds Abdomen: normal bowel sounds, non tender, soft Extremities: normal inspection Edema: no edema noted Arm (L), no edema noted Arm (R), no edema noted Leg (L), no edema noted Leg (R), no edema noted Pedal (L), no edema noted Pedal (R), no edema noted Generalized Neurologic: responsive, motor weakness Skin: normal pigmentation, warm/dry Donovan Francois DO Oct 10, 2018 12:49
--- NOTE | 2018-10-10 13:06 | NUR ---
DISCHARGE DISPOSITION: PLEASE READ PATIENT TO BE DISCHARGED TO [facility] [address] ROOM: TO BE ASSIGNED ONCE REPORT IS PROVIDED T: [phone]>>> CALL FOR REPORT [facility] ETA 1500 SKILLED GRANDDAUGHTER JOVANNY MADE AWARE OF THE TRANSFER VIA TELEPHONE. JOVANNY IS AGREEABLE.
[2018-10-10] MEDS ORDERED: ASPIRIN-LOW81 MG ORAL (13:47)
[2018-10-10] MEDS ORDERED: NOVOLOG100 UNIT/4 SQ (13:51)
[2018-10-10] MEDS ORDERED: CLONIDINE HCL0.1 MG PO (13:52)
[2018-10-10] MEDS ORDERED: LISINOPRIL20 MG ORAL (13:53)
[2018-10-10] MEDS ORDERED: METFORMIN HCL1000 M1 ORAL (13:53)
[2018-10-10] MEDS ORDERED: TEMAZEPAM15 MG ORAL ×2 (13:55→14:09)
[2018-10-10] MEDS ORDERED: JANUVIA100 MG ORAL (13:55)
[2018-10-10] MEDS ORDERED: NOVOLOG100 UNITS1 SUBQ (14:08)
--- NOTE | 2018-10-10 14:43 | Surgery Progress Note ---
Surgery Progress Note Subjective Additional Comments no acute events. doing well. comfortable wound stable. Objective Last 24 Hour Vital Signs Date Time Temp Pulse Resp B/P (MAP) Pulse Ox O2 Delivery O2 Flow Rate FiO2 10/10/18 12:00 80 10/10/18 12:00 98.6 80 16 131/72 (91) 96 10/10/18 09:36 138/75 10/10/18 09:00 Room Air 10/10/18 08:00 98.1 84 17 138/75 (96) 96 10/10/18 08:00 85 10/10/18 04:00 72 10/10/18 04:00 97.0 75 20 145/74 (97) 97 10/10/18 00:00 74 10/10/18 00:00 98.6 77 20 154/85 (108) 95 10/09/18 21:00 Room Air 10/09/18 20:00 98.4 86 20 139/69 (92) 95 10/09/18 20:00 82 10/09/18 16:00 88 10/09/18 16:00 98.4 85 18 138/60 (86) 96 I&O Intake and Output 10/09/18 10/10/18 18:59 06:59 Intake Total 360 ml Balance 360 ml Intake Oral 360 ml # Voids 3 2 Dressing: saturated Wound: other Drains: other Cardiovascular: RSR Respiratory: clear Abdomen: soft, non-tender, present bowel sounds, other, non-distended Extremities: no tenderness, no cyanosis Laboratory Tests Test 10/10/18 06:18 White Blood Count 3.6 K/UL (4.8-10.8) L Red Blood Count 3.91 M/UL (4.20-5.40) L Hemoglobin 11.1 G/DL (12.0-16.0) L Hematocrit 33.3 % (37.0-47.0) L Mean Corpuscular Volume 85 FL (80-99) Mean Corpuscular Hemoglobin 28.3 PG (27.0-31.0) Mean Corpuscular Hemoglobin Concent 33.3 G/DL (32.0-36.0) Red Cell Distribution Width 15.0 % (11.6-14.8) H Platelet Count 117 K/UL (150-450) L Mean Platelet Volume 5.9 FL (6.5-10.1) L Neutrophils (%) (Auto) 64.4 % (45.0-75.0) Lymphocytes (%) (Auto) 26.4 % (20.0-45.0) Monocytes (%) (Auto) 6.4 % (1.0-10.0) Eosinophils (%) (Auto) 1.8 % (0.0-3.0) Basophils (%) (Auto) 1.0 % (0.0-2.0) Sodium Level 144 MMOL/L (136-145) Potassium Level 4.0 MMOL/L (3.5-5.1) Chloride Level 108 MMOL/L (98-107) H Carbon Dioxide Level 27 MMOL/L (21-32) Anion Gap 9 mmol/L (5-15) Blood Urea Nitrogen 8 mg/dL (7-18) Creatinine 0.5 MG/DL (0.55-1.30) L Estimat Glomerular Filtration Rate > 60 mL/min (>60) Glucose Level 107 MG/DL (74-106) H Calcium Level 9.6 MG/DL (8.5-10.1) Plan Problems: (1) Surgical wound dehiscence Assessment & Plan: This is a 68-year-old female who was recently gone to [place] approximately 20 days ago for ventral hernia repair. He is unaware of the exact repair that was performed and if mesh was or was not used. Patient now presents with shortness of breath and discomfort. On admission noted to have midline wound dehiscence with sutures present. On evaluation patient has a 3 cm x 3 cm dehisced midline wound with unknown depth. Difficult to discern if there is underlying mesh or not. Ultimately 3 nonabsorbable sutures are identified within the subcutis tissue and unsure if these are related to mesh placement of a possible overlay or not. Minimal erythema nontender no drainage. Patient is a diabetic. Patient denies any complaints from the wound. Given recent surgical intervention in [place] there is significant concern of potential underlying wound pathology. Recommend CT abdomen and pelvis to evaluate for potential mesh placement seroma or bowel or other of normality within the repaired hernia. CT results Impression: Evidence of prior anterior abdominal wall hernia repair with mesh in place. There are some adjacent inflammatory changes, not unexpected if surgery was fairly recent. No evidence of fluid collection or other significant complication Evidence of hepatic cirrhosis. Evidence of portal hypertension, with fairly extensive perigastric varices and splenomegaly Gallbladder wall thickening and pericholecystic inflammation. Probably secondary to the above-mentioned portal hypertension. Acalculous acute cholecystitis or acute cholecystitis due to occult stones less likely but also possible, and consideration should be given to hepatobiliary nuclear scan if there is high clinical suspicion Mild infiltration of the mesenteric root caudad to the pancreas. Probably congestion secondary to portal hypertension but inflammatory process also possible Other findings as noted, including lipomatous hypertrophy of the ileocecal valve , duodenal diverticulum, degenerative spondylosis Sutures removed from midline wound as they were non absorbable to causing foreign body effect. the midline wound from hernia repair seems to have area of non viable tissue. cannot clearly understand how repair was done but seems as if flap of tissue was used to cover mesh and flap may not have viability. some bleeding from periphery noted. area 2cm x 2cm that may demarcate. will monitor now that sutures are out Okay for diet We will continue to monitor Local wound care with plans for outpatient wound care upon discharge okay to transfer from surgical standpoint no acute surgical intervention planned. Thank you for allowing me to participate in patient's care (2) Surgical wound, non healing (3) CHF (congestive heart failure) (4) Chest tightness (5) Episode of generalized weakness Marlon Miles Oct 10, 2018 14:43
--- NOTE | 2018-10-10 15:30 | NUR ---
NURSE NOTES: Report given to Yanelis who is a receiving nurse at [facility]. The patient will go to room 409-A. Course of hospitalization explained to Yanelis including wound care and medication reconciliation. Will continue to monitor the patient until the [facility] transportation arrives on 1600.
[2018-10-10 16:00] VITALS: BP 129/70
--- NOTE | 2018-10-10 17:40 | NUR ---
NURSE NOTES: Report given to Katlyn @ [facility] and explained course of hospitalization. Report also given to Yanelis who is a receiving nurse at [facility]. Explained course of hospitalization, medication reconciliation, and daily wound dressing to Yanelis. The patient will go to room 409A per Yanelis. The patient denies of acute distress or shortness of breath and has stable vital sign upon discharge. Daily dressing change of hernia surgical wound performed before discharge today. Discharge instruction and teaching given to the patient and verbalized understanding. Belongings checked with the patient and confirmed all belongings are with her. Discharge form and inventory form signed by the patient. Removed name band, tele box, and IV by the nurse. The patient got transferred to [facility] in a safe manner.
--- NOTE | 2018-10-11 14:38 | Hematology/Onc Progress Note ---
Assessment/Plan Assessment/Plan ASSESSMENT AND REC'S # Pancytopenia -- multiple etiologies could be related to underlying liver disease, + Splenomegaly. Cirrhosis+++ --> peripheral smear has been ordered --> Medications have been reviewed --> Continue to monitor for improvement, trend cbc --> Hep panel and HIV are negative --> US abd ordered to r/o cirrhosis and hepatosplenomegaly ++ Splenomegaly. --> Give neupogen if ANC <1000, reverse iso --> ok for ppx if plt >50k w/ either heparin or lovenox --> Transfuse if Plt < 20k and fever, or if Plt < 10k without fever --> will/have begun on iv iron and continue x 5 doses #. Liver Cirrhosis could be due to alcohol use or hepatitis --> US Abd reviewed --> order AFP level #. Surgical Wound-non healing -->S/p hernia surgery -recently --> Surgery is following f/u with wound pathology --> CT Abd reviewed. #. Diabetes The timing of this note does not necessarily reflect the time of the patient was seen. GREATLY APPRECIATE CONSULTATION. Subjective Allergies: Coded Allergies: PENICILLINS (Verified Allergy, Severe, anaphalaxtic, 10/03/18) Subjective 6.18: labs reviewed, relatively stable, anemia shows eusebio, and iv iron started 10/08: egd showed gastitis 10/09: labs reviewed, seen by gi, sienna planning per pcp 10/10: Pt awake and resting in bed. No acute events. Transfer to [facility] pending. Objective Objective Last 24 Hour Vital Signs Date Time Temp Pulse Resp B/P (MAP) Pulse Ox O2 Delivery O2 Flow Rate FiO2 10/10/18 16:00 98.2 89 18 129/70 (89) 98 10/10/18 12:00 80 10/10/18 12:00 98.6 80 16 131/72 (91) 96 10/10/18 09:36 138/75 10/10/18 09:00 Room Air 10/10/18 08:00 98.1 84 17 138/75 (96) 96 10/10/18 08:00 85 10/10/18 04:00 72 10/10/18 04:00 97.0 75 20 145/74 (97) 97 10/10/18 00:00 74 6/21/19 00:00 98.6 77 20 154/85 (108) 95 10/09/18 21:00 Room Air 10/09/18 20:00 98.4 86 20 139/69 (92) 95 10/09/18 20:00 82 10/09/18 16:00 88 10/09/18 16:00 98.4 85 18 138/60 (86) 96 Intake and Output 10/10/18 10/11/18 19:00 07:00 Intake Total 600 ml Balance 600 ml Intake Oral 600 ml # Voids 2 Labs Test 10/09/18 07:02 10/10/18 06:18 White Blood Count 3.4 K/UL (4.8-10.8) 3.6 K/UL (4.8-10.8) Red Blood Count 3.85 M/UL (4.20-5.40) 3.91 M/UL (4.20-5.40) Hemoglobin 10.8 G/DL (12.0-16.0) 11.1 G/DL (12.0-16.0) Hematocrit 32.3 % (37.0-47.0) 33.3 % (37.0-47.0) Mean Corpuscular Volume 84 FL (80-99) 85 FL (80-99) Mean Corpuscular Hemoglobin 28.2 PG (27.0-31.0) 28.3 PG (27.0-31.0) Mean Corpuscular Hemoglobin Concent 33.5 G/DL (32.0-36.0) 33.3 G/DL (32.0-36.0) Red Cell Distribution Width 13.9 % (11.6-14.8) 15.0 % (11.6-14.8) Platelet Count 98 K/UL (150-450) 117 K/UL (150-450) Mean Platelet Volume 5.5 FL (6.5-10.1) 5.9 FL (6.5-10.1) Neutrophils (%) (Auto) % (45.0-75.0) 64.4 % (45.0-75.0) Lymphocytes (%) (Auto) % (20.0-45.0) 26.4 % (20.0-45.0) Monocytes (%) (Auto) % (1.0-10.0) 6.4 % (1.0-10.0) Eosinophils (%) (Auto) % (0.0-3.0) 1.8 % (0.0-3.0) Basophils (%) (Auto) % (0.0-2.0) 1.0 % (0.0-2.0) Differential Total Cells Counted 100 Neutrophils % (Manual) 68 % (45-75) Lymphocytes % (Manual) 24 % (20-45) Monocytes % (Manual) 6 % (1-10) Eosinophils % (Manual) 2 % (0-3) Basophils % (Manual) 0 % (0-2) Band Neutrophils 0 % (0-8) Platelet Estimate Decreased Platelet Morphology Normal Hypochromasia 1+ Anisocytosis 1+ Sodium Level 143 MMOL/L (136-145) 144 MMOL/L (136-145) Potassium Level 3.8 MMOL/L (3.5-5.1) 4.0 MMOL/L (3.5-5.1) Chloride Level 107 MMOL/L (98-107) 108 MMOL/L (98-107) Carbon Dioxide Level 27 MMOL/L (21-32) 27 MMOL/L (21-32) Anion Gap 9 mmol/L (5-15) 9 mmol/L (5-15) Blood Urea Nitrogen 8 mg/dL (7-18) 8 mg/dL (7-18) Creatinine 0.5 MG/DL (0.55-1.30) 0.5 MG/DL (0.55-1.30) Estimat Glomerular Filtration Rate > 60 mL/min (>60) > 60 mL/min (>60) Glucose Level 121 MG/DL (74-106) 107 MG/DL (74-106) Calcium Level 9.3 MG/DL (8.5-10.1) 9.6 MG/DL (8.5-10.1) Alpha Fetoprotein 2.9 ng/mL (0.0-8.3) Height (Feet): 5 Height (Inches): 3.00 Weight (Pounds): 185 Objective General Appearance: no apparent distress, alert, Head: normocephalic, atraumatic Eyes: bilateral eye normal inspection, bilateral eye PERRL ENT: hearing grossly normal, normal pharynx, no angioedema, normal voice Neck: full range of motion, supple/symm/no masses Respiratory: lungs clear Cardiovascular: regular rate, rhythm, no edema Gastrointestinal: normal bowel sounds, non tender, soft, non-distended, no guarding, no rebound Musculoskeletal: back normal, gait/station normal, normal range of motion, non- tender, swelling - +Swelling of L. hand through upper arm. Neurologic: alert, oriented x3, responsive, motor strength/tone normal, sensory intact, speech normal Psychiatric: judgement/insight normal, memory normal, mood/affect normal, no suicidal/homicidal ideation Skin: normal color, no rash, warm/dry, Aidan Johns MD Oct 11, 2018 14:38
--- NOTE | 2018-10-11 19:09 | Cardiology Report ---
APPROVED REPORT EKG Measurement Heart [id number] Normal sinus rhythm Normal ECG
--- NOTE | 2018-10-11 19:12 | Cardiology Report ---
APPROVED REPORT EKG Measurement Heart [id number] Normal sinus rhythm Possible Anterior infarct, age undetermined Abnormal ECG
--- NOTE | 2018-10-12 21:55 | Discharge Summary ---
Discharge Summary Discharge Summary _ DATE OF ADMISSION: 10/03/2018 DATE OF DISCHARGE: 10/10/2018 DISCHARGED BY: Dr Francois REASON FOR ADMISSION: 68 years old female with past medical history of hypertension, diabetes, presented to emergency department with feeling lightheaded and weak She also complains of pain in her left arm. She initially denied chest pain and shortness of breath., but later reported chest pain and shortness of breath. She denied headache, neck pain. She denied abdominal pain, nausea, vomiting. She denied fever or chills. Few weeks ago patient had a hernia repair in [facility]. Clinical examination revealed surgical wound dehiscence. Upon evaluation blood pressure was significantly elevated 192/90. Laboratory work-up revealed no leukocytosis. Hemoglobin 11.4, hematocrit 24.5. Urinalysis revealed +2 leukocyte esterase, borderline pyuria and occasional bacteria. Electrolytes and renal parameters were stable. Glucose 221. Lactic acid 1.5. Troponin was negative. EKG revealed normal sinus rhythm, no acute ischemic changes. Chest x-ray demonstrated mild cardiomegaly, possible small left pleural effusion , no other abnormality. Venous duplex left upper extremity revealed no evidence of acute DVT. Patient subsequently admitted to telemetry floor for further evaluation and management. CONSULTANTS: lye peel operator Dr. Abbott pulmonary Dr. Mayer ID specialist Dr. Trinidad GI specialist Dr. Jarvis assistant sales director/oncologist Dr. Johns fitness leader Dr. Allred surgery Dr. Miles [facility] COURSE: Patient admitted to telemetry floor. Serial troponin were negative. Given chest pain , shortness of breath and recent surgery, venous duplex bilateral lower extremity was done and revealed no evidence of acute DVT. D-dimer with minor elevation 0.53. Medical Practice Administrator followed. Serial troponin were negative. EKG revealed no acute ischemic changes. Patient was ruled out for acute myocardial infarction. Echocardiogram revealed preserved ejection fraction of 55% with mild left ventricular hypertrophy. No evidence of wall motion abnormality. Right ventricular systolic pressure of 38 consistent with mild pulmonary hypertension. Patient subsequently undergone myocardial perfusion scan test, which revealed no imaging to suggest ischemia at the level of stress achieved. Calculated post stress ejection fraction greater than 70%. Blood pressure was managed with ASPEN inhibitor and clonidine was on board as needed. Blood pressure stabilized. . Lipid panel was stable. Statin continued. TSH within normal limits. Chest pain and shortness of breath resolved as blood pressure stabilized . Pulse oximetry was stable on room air. Surgeon seen and evaluated patient for surgical wound dehiscence. Surgeon recommended CT of the abdomen and pelvis to evaluate for potential mesh placement, seroma or other abnormality within the repaired hernia. CT revealed evidence of prior anterior abdominal wall hernia repair with mesh in place. There w ere some adjacent inflammatory changes , not unexpected if the surgery was fairly recent. No evidence of fluid collection or other significant complication. Evidence of hepatic cirrhosis. Evidence of portal hypertension with fairly extensive perigastric varices and splenomegaly. Gallbladder wall thickening and pericholecystic inflammation, probably secondary to above-mentioned portal hypertension. Surgeon removed sutures from midline wound , since they were not absorbable. Wound care provided as per surgical recommendation. Continue local wound care upon discharge. Surgeon cleared patient for discharge from surgical standpoint. No acute surgical intervention was planned. GI specialist followed. Patient undergone upper endoscopy with biopsy due to finding of cirrhosis on the CAT scan of the abdomen for evaluation of varices. EGD revealed no esophageal or obvious gastric varices. Mild portal hypertensive gastropathy noted. Inflammatory area in the prepyloric region was noted status post biopsy. Biopsy revealed mild chronic gastritis, changes consistent with portal hypertensive gastropathy, but no H. pylori was identified. GI prophylaxis provided. Hepatitis panel was negative. HIV test was nonreactive. LFT and bilirubin were closely monitored and remained stable. Alpha-fetoprotein within normal limits. Steel Finisher followed. Blood sugar initially elevated on admission. Blood sugar was managed with metformin and Januvia. Sliding scale of short-acting insulin was on board as needed. No need for scheduled basal or bolus insulin at this time , as per cardio fitness leader. Diabetic diet provided. Hemoglobin A1c 7.2. World History Teacher followed . Patient had pancytopenia, most likely due to underlying liver disease/ cirrhosis. Counts were closely monitored. Anemia work-up revealed low ferritin 29. Patient received IV Venofer. Prior to discharge WBC 3.6, hemoglobin 11.1, hematocrit 33.3, platelet count 117. ID specialist seen and evaluated patient due to surgical wound dehiscence Patient exhibited no fever, no leukocytosis. No clear evidence of infection. ID specialist recommended to monitor patient off antibiotics. Patient was working with physical therapist. Placement was arranged to acute rehabilitation center at [facility] [place] [facility] for further rehabilitation and wound care FINAL DIAGNOSES: Hypertensive urgency, present on admission-resolved Chest pain Liver cirrhosis Portal hypertensive gastropathy Mild chronic gastritis Hyperlipidemia Pancytopenia Diabetes mellitus Surgical wound dehiscence DISCHARGE MEDICATIONS: See Medication Reconciliation list. DISCHARGE INSTRUCTIONS: Patient was transferred to acute rehabilitation center at [facility] for further management. Sangeetha Lake NP Oct 12, 2018 21:55
== END 2018-10-10 17:57 | disposition short-term general hospital (02) | DRG 305 ==
LOC: EDBD 12:58 → EMR 13:51 → 2E 15:35 → EDBEDREQ 15:54
PROC: 0DB78ZX Excision of Stomach, Pylorus, Via Natural or Artificial Opening Endoscopic, Diagnostic (ICD-10-PCS; principal; 2018-10-08 08:53)
DX: I16.0 Hypertensive urgency (principal); N39.0 Urinary tract infection, site not specified; T81.31XA Disruption of external operation (surgical) wound, not elsewhere classified, initial encounter; D61.818 Other pancytopenia; K76.6 Portal hypertension; I11.0 Hypertensive heart disease with heart failure; I50.9 Heart failure, unspecified; E11.9 Type 2 diabetes mellitus without complications; R07.89 Other chest pain; Z79.4 Long term (current) use of insulin; Z88.0 Allergy status to penicillin; D69.6 Thrombocytopenia, unspecified; Y83.8 Other surgical procedures as the cause of abnormal reaction of the patient, or of later complication, without mention of misadventure at the time of the procedure; E11.65 Type 2 diabetes mellitus with hyperglycemia; E66.01 Morbid (severe) obesity due to excess calories; E78.5 Hyperlipidemia, unspecified; D50.9 Iron deficiency anemia, unspecified; K74.60 Unspecified cirrhosis of liver; K31.89 Other diseases of stomach and duodenum; R53.1 Weakness
CPT/HCPCS: 36415; 71045; 74176; 76700; 78452; 80048; 80053; 80061; 81003; 82105; 82550; 82553; 82607; 82728; 82746; 82962; 83036; 83540; 83550; 83605; 83735; 83880; 84100; 84443; 84484; 85007; 85025; 85060; 85379; 85610; 85730; 86703; 86705; 86709; 86803; 87340; 93005; 93017; 93306; 93970; 93971; 94003; 94150; 94664; 96360; 99285; J1815; J2785; J7620